=== PATIENT | female | born 1980 | race Hispanic/Latino ===

== ENCOUNTER 2018-07-22 22:15 | Emergency (ER) | payer SELFPAY ==
[2018-07-22 22:54] LABS: Absolute Lymphocytes (CBC) 1.1 K/uL (0.7-4.9); Absolute Monocytes 0.4 K/uL (0.1-1.3); Absolute Neutrophil 3.9 K/uL (1.8-8.0); Basophils % 0.5 % (0-1.3); Eosinophils % 1.3 % (0-4.4); Hematocrit 32.3 % (36.0-45.0); Lymphocytes % 19.8 % (15.3-44.8); MPV 8.2 fL (7.6-11.3); Monocytes % 7.1 % (3.3-12.3)
[2018-07-22 23:02] LABS: Protime INR 1.17
[2018-07-22 23:16] LABS: ALT/SGPT 27 U/L (12-78); AST/SGOT 30 U/L (15-37); Albumin 3.1 g/dL (3.4-5.0); Alkaline Phosphatase 92 U/L (45-117); BUN Blood Urea Nitrogen 7 mg/dL (7-18); Bicarbonate 27 mmol/L (21-32); Bilirubin Direct 0.1 mg/dL (0-0.2); Bilirubin Total 0.2 mg/dL (0.2-1.0); CKMB Creatine Kinase MB < 1.0 ng/mL (0.3-3.6); Creatine Phosphokinase 63 U/L (26-192); Glucose Level 221 mg/dL (74-106); Lipase 120 U/L (73-393); NT PRO-BNP 38 pg/mL (<125); Potassium 3.7 mmol/L (3.5-5.1); Protein, Total 9.3 g/dL (6.4-8.2); Sodium Level 137 mmol/L (136-145); Troponin (Emerg Dept Use Only) < 0.02 ng/mL (0.0-0.045)
[2018-07-23] MEDS ORDERED: IBUPROFEN 400 MG TAB ONE (00:05)
[2018-07-23] MEDS ORDERED: AZITHROMYCIN 500 MG INJ IVPB ONE (01:38)
[2018-07-23] MEDS ORDERED: NA CHLORIDE 0.9% 250 ML ONE (01:38)
[2018-07-23] MEDS ORDERED: CEFTRIAXONE/SWI 1gm 1 GM/10 ML SYR ONE (01:38)
--- NOTE | 2018-07-23 03:03 | EDPHYS ---
Physician Documentation [facility] Name: Sharlene Buchanan Age: 38 yrs Sex: Female : 1980 Arrival Date: 07/22/2018 Time: 22:18 Bed 26 Private MD: ED Physician Aj Staples HPI: 07/22 22:53 This 38 yrs old Female presents to ER via Ambulatory with complaints of Cough, tw4 Breathing Difficulty, Fever. 22:53 The patient or guardian reports airway noise, cough. Onset: The symptoms/episode tw4 began/occurred today. Severity of symptoms: At their worst the symptoms were moderate, in the emergency department the symptoms are unchanged. Modifying factors: The symptoms are alleviated by nothing, the symptoms are aggravated by nothing. The patient has not experienced similar symptoms in the past. 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 - Social history:: Smoking status: Patient/guardian denies using tobacco. - Ebola Screening: : Patient negative for fever greater than or equal to 101.5 degrees Fahrenheit, and additional compatible Ebola Virus Disease symptoms Patient denies exposure to infectious person Patient denies travel to an Ebola-affected area in the 21 days before illness onset. ROS: 22:53 Constitutional: Negative for fever, chills, and weight loss, Eyes: Negative for injury, tw4 pain, redness, and discharge, Cardiovascular: Negative for chest pain, palpitations, and edema, Abdomen/GI: Negative for abdominal pain, nausea, vomiting, diarrhea, and constipation, Back: Negative for injury and pain, MS/Extremity: Negative for injury and deformity, Skin: Negative for injury, rash, and discoloration. 22:53 Respiratory: Positive for cough, shortness of breath, wheezing, Negative for dyspnea on exertion, hemoptysis, orthopnea, pleurisy. Exam: 22:53 Constitutional: This is a well developed, well nourished patient who is awake, alert, tw4 and in no acute distress. Head/Face: Normocephalic, atraumatic. Chest/axilla: Normal chest wall appearance and motion. Nontender with no deformity. No lesions are appreciated. Cardiovascular: Regular rate and rhythm with a normal S1 and S2. No gallops, murmurs, or rubs. Normal PMI, no JVD. No pulse deficits. 22:53 Abdomen/GI: Soft, non-tender, with normal bowel sounds. No distension or tympany. No guarding or rebound. No evidence of tenderness throughout. Back: No spinal tenderness. No costovertebral tenderness. Full range of motion. 22:53 Respiratory: the patient does not display signs of respiratory distress, Respirations: normal, Breath sounds: rhonchi, are located in both bases. Vital Signs: 22:32 BP 184 / 110; Pulse 94; Resp 23; Temp 101.9; Pulse Ox 95% on R/A; Weight 90.72 kg; rv Height 5 ft. 3 in. (160.02 cm); Pain 0/10; 23:42 BP 161 / 99; Pulse 90; Resp 21; Pulse Ox 99% on 2 lpm NC; ca1 07/23 00:00 BP 157 / 101 RA; Pulse 90; Resp 17 S; Temp 99.8(O); Pulse Ox 99% on R/A; rv 01:00 BP 147 / 100 RA; Pulse 88; Resp 14 S; Pulse Ox 99% on 2 lpm NC; rv 03:30 BP 130 / 85; Pulse 80; Resp 18 S; Temp 97.9(O); Pulse Ox 95% on R/A; bb 07/22 22:32 Body Mass Index 35.43 (90.72 kg, 160.02 cm) rv MDM: 07/22 22:28 Patient medically screened. tw4 07/23 06:40 Differential Diagnosis: Obstructed Airway Bronchitis Influenza. Data reviewed: vital tw4 signs, nurses notes. Data interpreted: shelter monitor: rhythm is normal sinus rhythm, Pulse oximetry: Interpretation: normal. Test interpretation: by ED physician or midlevel provider: ECG, plain radiologic studies. Counseling: I had a detailed discussion with the patient and/or guardian regarding: the historical points, exam findings, and any diagnostic results supporting the discharge/admit diagnosis, lab results, radiology results. Medication response: albuterol nebulizer treatment(s) relieved the patient's symptoms. The patient is no longer wheezing. Response to treatment: There is no appreciated change of the patient's symptoms at this time. 07/22 22:38 Order name: Blood Culture Adult (2) tw07/22 22:38 Order name: BMP tw4 07/22 22:38 Order name: CBC with Diff; Complete Time: 01:19 tw07/22 22:38 Order name: Ckmb tw4 07/22 22:38 Order name: CPK 4 07/22 22:38 Order name: D-Dimer; Complete Time: 01:19 07/22 22:38 Order name: Hepatic Function 4 07/22 22:38 Order name: Lipase tw4 07/22 22:38 Order name: Magnesium 07/22 22:38 Order name: NT PRO-BNP 07/22 22:38 Order name: PT-INR 07/22 22:38 Order name: Ptt, Activated 07/22 22:38 Order name: Troponin (emerg Dept Use Only) 07/22 22:39 Order name: Blood Culture EDIA 07/22 22:38 Order name: XRAY CXR (1 view) 07/22 22:38 Order name: EKG; Complete Time: 22:40 07/22 22:38 Order name: Cardiac monitoring; Complete Time: 22:49 07/22 22:38 Order name: EKG - Nurse/Tech; Complete Time: 22:50 07/22 22:38 Order name: IV Saline Lock; Complete Time: 22:50 07/22 22:38 Order name: Labs collected and sent; Complete Time: 22:50 07/22 22:38 Order name: O2 Per Protocol; Complete Time: 22:50 07/22 22:38 Order name: O2 Sat Monitoring; Complete Time: 22:50 07/22 23:48 Order name: Flu tw4 EC/23 23:14 Rate is 90 beats/min. Rhythm is regular. QRS Emmet is Normal. UT interval is normal. No tw4 Q waves. T waves are Normal. No ST changes noted. Clinical impression: Normal ECG. Interpreted by me. Reviewed by me. Administered Medications: 23:56 Drug: Motrin 800 mg Route: PO; ca1 07/23 00:33 Follow up: Response: Temperature is decreased rv 01:25 Drug: Rocephin 1 grams Route: IV; Rate: calculated rate; Site: right hand; bb 01:30 Follow up: IV Status: Completed infusion; IV Intake: 10ml bb 01:35 Follow up: IV Status: Completed infusion; IV Intake: 10ml bb 01:42 Drug: Zithromax 500 mg Route: IVPB; Infused Over: 1 hrs; Site: right hand; bb 03:29 Follow up: IV Status: Completed infusion; IV Intake: 250ml bb Disposition: 07/23/18 03:02 Discharged to Home. Impression: Pneumonia in diseases classified elsewhere. - Condition is Stable. - Discharge Instructions: Community-Acquired Pneumonia, Adult. - Prescriptions for Zithromax 500 mg Oral Tablet - take 1 tablet by ORAL route once daily for 5 days; 5 tablet. - Medication Reconciliation Form, Thank You Letter, Antibiotic Education, Prescription Opioid Use form. - Follow up: Private Physician; When: Upon discharge from the Emergency Department; Reason: If symptoms return, Recheck today's complaints, Continuance of care. - Problem is new. - Symptoms have improved. Signatures: Dispatcher [employer] EDMerle Olvera RN RN bb Aj Staples MD MD tw4 Mickey Palma RN RN rv Darshan, Duyen RN RN ca1 Corrections: (The following items were deleted from the chart) 03:31 03:02 07/23/2018 03:02 Discharged to Home. Impression: Pneumonia in diseases classified bb elsewhere. Condition is Stable. Forms are Medication Reconciliation Form, Thank You Letter, Antibiotic Education, Prescription Opioid Use. Follow up: Private Physician; When: Upon discharge from the Emergency Department; Reason: If symptoms return, Recheck today's complaints, Continuance of care. Problem is new. Symptoms have improved. tw4
--- NOTE | 2018-07-23 03:03 | ER ---
Nurse's Notes [facility] Name: Sharlene Buchanan Age: 38 yrs Sex: Female : 1980 Arrival Date: 07/22/2018 Time: 22:18 Bed 26 Private MD: Diagnosis: Pneumonia in diseases classified elsewhere Presentation: 07/22 22:30 Presenting complaint: Patient states: FEVER STARTED TUESDAY. COUGH AND SOB STARTED rv YESTERDAY ANG GOT WORSE TODAY. NO CHEST PAIN. DOES NOT TAKE ANY MEDICINE BUT TOOK SON'S INHALER/ASTHMA MEDICINE. Transition of care: patient was not received from another setting of care. Onset of symptoms was July 21, 2018 at 08:00. Risk Assessment: Do you want to hurt yourself or someone else? Patient reports no desire to harm self or others. Initial Sepsis Screen: Does the patient meet any 2 criteria? No. Patient's initial sepsis screen is negative. Does the patient have a suspected source of infection? No. Patient's initial sepsis screen is negative. Care prior to arrival: None. 22:30 Method Of Arrival: Ambulatory rv 22:30 Acuity: BRITTNEY 3 rv Triage Assessment: 22:36 General: Appears in no apparent distress. uncomfortable, Behavior is calm, cooperative. rv Pain: Denies pain. EENT: No deficits noted. Neuro: Level of Consciousness is awake, alert, obeys commands, Oriented to person, place, time, situation. Cardiovascular: Capillary refill < 3 seconds. Respiratory: Reports shortness of breath at rest cough that is persistent Onset: The symptoms/episode began/occurred yesterday, Denies. Respiratory: the patient has moderate shortness of breath. GI: Abdomen is round. : No signs and/or symptoms were reported regarding the genitourinary system. Derm: Skin is intact. Musculoskeletal: No signs and/or symptoms reported regarding the musculoskeletal system. 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 - Social history:: Smoking status: Patient/guardian denies using tobacco. - Ebola Screening: : Patient negative for fever greater than or equal to 101.5 degrees Fahrenheit, and additional compatible Ebola Virus Disease symptoms Patient denies exposure to infectious person Patient denies travel to an Ebola-affected area in the 21 days before illness onset. Screenin:38 Abuse screen: Denies threats or abuse. Denies injuries from another. Nutritional rv screening: No deficits noted. Tuberculosis screening: No symptoms or risk factors identified. Fall Risk None identified. Assessment: 22:39 Cardiovascular: Rhythm is regular. Respiratory: Airway is patent Respiratory effort is rv labored, Breath sounds with crackles in right posterior upper lobe, right posterior middle lobe and right posterior lower lobe. 07/23 00:18 Reassessment: Patient appears in no apparent distress at this time. Patient and/or rv family updated on plan of care and expected duration. Pain level reassessed. Patient is alert, oriented x 3, equal unlabored respirations, skin warm/dry/pink. Patient denies pain at this time. 01:16 Reassessment: Patient appears in no apparent distress at this time. Patient and/or rv family updated on plan of care and expected duration. Pain level reassessed. Patient is alert, oriented x 3, equal unlabored respirations, skin warm/dry/pink. 01:42 Reassessment: Patient is alert, oriented x 3, equal unlabored respirations, skin bb warm/dry/pink. IV site intact, patent, antibiotics administered pt notified of plan of care will be discharged on completion of IV antibiotics, pt verbalized understanding of and agrees to plan of care, family at bedside. 03:28 Reassessment: Patient and/or family updated on plan of care and expected duration. Pain bb level reassessed. pt verbalized understanding of and agrees to plan of care discharge instructions given pt ambulated with steady gait to exit accompanied by family. Vital Signs: 07/22 22:32 BP 184 / 110; Pulse 94; Resp 23; Temp 101.9; Pulse Ox 95% on R/A; Weight 90.72 kg; rv Height 5 ft. 3 in. (160.02 cm); Pain 0/10; 23:42 BP 161 / 99; Pulse 90; Resp 21; Pulse Ox 99% on 2 lpm NC; ca1 07/23 00:00 BP 157 / 101 RA; Pulse 90; Resp 17 S; Temp 99.8(O); Pulse Ox 99% on R/A; rv 01:00 BP 147 / 100 RA; Pulse 88; Resp 14 S; Pulse Ox 99% on 2 lpm NC; rv 03:30 BP 130 / 85; Pulse 80; Resp 18 S; Temp 97.9(O); Pulse Ox 95% on R/A; bb 07/22 22:32 Body Mass Index 35.43 (90.72 kg, 160.02 cm) rv ED Course: 07/22 22:18 Patient arrived in ED. mr 22:28 Aj Staples MD is Attending Physician. tw4 22:32 Triage completed. rv 22:39 Patient has correct armband on for positive identification. Placed in gown. Bed in low rv position. Call light in reach. Side rails up X 1. monitor and storage bin tender on. Pulse ox on. NIBP on. 22:39 Patient placed in an exam room, on a stretcher, on oxygen, on satellite project site monitor, on pulse rv oximetry, Patient notified of wait time. 22:40 Missed attempt(s): 20 gauge in right antecubital area. ca1 22:43 Inserted saline lock: 22 gauge in right hand, using aseptic technique. Blood collected. ca1 22:43 First set of blood cultures drawn by me. ca1 22:49 XRAY CXR (1 view) Sent. rv 22:50 Blood Culture Adult (2) Sent. rv 23:01 XRAY CXR (1 view) In Process Unspecified. EDMS 23:18 Notified ED physician of a critical lab result(s). D-Dimer of 748. Dr Staples notified. bb 07/23 01:17 Report given to [place]. rv 01:43 No provider procedures requiring assistance completed. bb 03:25 IV discontinued, intact, bleeding controlled, No redness/swelling at site. Pressure bb dressing applied. Administered Medications: 07/22 23:56 Drug: Motrin 800 mg Route: PO; ca1 07/23 00:33 Follow up: Response: Temperature is decreased rv 01:25 Drug: Rocephin 1 grams Route: IV; Rate: calculated rate; Site: right hand; bb 01:30 Follow up: IV Status: Completed infusion; IV Intake: 10ml bb 01:35 Follow up: IV Status: Completed infusion; IV Intake: 10ml bb 01:42 Drug: Zithromax 500 mg Route: IVPB; Infused Over: 1 hrs; Site: right hand; bb 03:29 Follow up: IV Status: Completed infusion; IV Intake: 250ml bb Intake: 01:30 IV: 10ml; Total: 10ml. bb 01:35 IV: 10ml; Total: 20ml. bb 03:29 IV: 250ml; Total: 270ml. bb Outcome: 03:02 Discharge ordered by MD. conteh 03:31 Discharged to home ambulatory, with family. bb 03:31 Condition: stable 03:31 Discharge instructions given to patient, Instructed on discharge instructions, follow up and referral plans. medication usage, Demonstrated understanding of instructions, follow-up care, medications, Prescriptions given X 1. 03:31 Patient left the ED. bb Signatures: Dispatcher [employer] Jess Lester Brenda, RN RN Aj Slater MD MD tw4 Mickey Palma RN RN rv Duyen Sexton RN RN ca1
--- NOTE | 2018-07-23 10:52 | RAD REPORT ---
EXAM DESCRIPTION: RAD - Chest Single View - 07/23/2018 8:19 am CLINICAL HISTORY: DYSPNEA Chest pain. COMPARISON: No comparisons FINDINGS: Portable technique limits examination quality. Bilateral pulmonary opacities are present, greater on the right, likely representing pneumonia or asy mmetric pulmonary edema. The heart is normal in size. No displaced fractures.
== END 2018-07-23 03:31 | disposition home or self-care (01) ==
LOC: ER 22:15
DX: J18.9 Pneumonia, unspecified organism (principal)
CPT/HCPCS: 36415; 71045; 80048; 80076; 82550; 82553; 83690; 83735; 83880; 84484; 85025; 85379; 85610; 85730; 87040; 87804; 96365; 96366; 96375; 99285; J0456; J0696

== ENCOUNTER 2022-05-05 14:02 | Emergency (ER) | payer SELFPAY ==
--- OUTSIDE RECORDS SUMMARY | 2022-05-05 14:12 | XMS REPORT | Continuity of Care Document ---
:1980 Author Organization [facility] t Address [address] [place] [address] Care Team Providers Name Role Phone Pcp, Patient Does Not Have A Primary Care Physician +[id number] Doctor Unassigned, Bernice Attending Clinician Unavailable JACKEI DYE Attending Clinician Unavailable Rashi Rogel DO Attending Clinician Jackie Dye MD Attending Clinician MARIBEL NUÑEZ Attending Clinician Unavailable Maribel Guerrero Attending Clinician Cecilia FOUNTAIN, Roselyn Menjivar Attending Clinician Unavailable ROBERT DAILY Attending Clinician Unavailable April Mendiola Attending Clinician Yohannes Denton DO Attending Clinician Verona Taylor MD Attending Clinician [facility] Attending Clinician Unavailable Melly Richards Attending Clinician MELLY FATIMA Attending Clinician Unavailable JACKIE DYE Admitting Clinician Unavailable Jackie Dye MD Admitting Clinician Yohannes Denton DO Admitting Clinician Problems Condition Condition Condition Status Onset Resolution Last Treating Co mments Source Name Details Category Date Date Treatment Clinician Date Right Right Disease Active Univers flank pain flank pain 12-02 it y of 00:00: [address] Pyelonephr Pyelonephr Disease Active U nivers itis itis 8 ity of 00:00: [address] Breast Breast Disease Active Univers abscess abscess 07-30 ity of 00:00: [address] Morbid Morbid Disease Active Univers obesity obesity 3-31 ity of [place] body [place] mass index mass index 00 Me dical of 50 or of 50 or Branch higher higher No known No known Disease Unive rs active active ity of problems problems [facility] Allergies, Adverse Reactions, Alerts Allergy Allergy Status Severity Reaction(s) Onset Inactive Treating Comm ents Source Name Type Date Date Clinician NO KNOWN Drug Active Univers DRUG Class 2-12 ity of ALLERGIE 00:00: [place] [address] [place] [address] No Known Propensi Active Univer s Drug ty to 2-12 ity of Allergie adverse 00:00: [place] reaction [address] [place] [address] Social History Social Habit Start Date Stop Date Quantity Comments Source Exposure to 2021-11-21 2021-12-01 Not sure [facility] SARS-CoV-2 00:00:00 14:24:00 [facility] (event) [place] Tobacco use and 2020-07-30 2020-07-30 Smokeless tobacco Un iversity of exposure 00:00:00 00:00:00 non-user [facility] Education 2020-07-30 2020-07-30 13 University of 00:00:00 00:00:00 [facility] Sex [birth year] Universit y of 00:00:00 00:00:00 [facility] Smoking Status Start Date Stop Date Source Never smoked [facility] Medications Ordered Filled Start Stop Current Ordering Indication Dosage Frequency Signature Comments Components Source Medication Medication Date Date Medication? Clinician (SIG) Name Name morpHINE (2 Yes 2mg 2 mg, Slow Univers mg/mL) 12-04 IV Push, ity of injection 2 02:04: Q4HPRN, [place] mg 03 Starting Medical on [place] Branch 12/03/21 at 2104, Until Discontinu ed, Routine, Pain (scale 7-10) insulin NPH Yes [id number] 25U inject 25 Univers and regular 8-05 Units ity of human 70-30 00:00: under the [place] 100 unit/mL 00 skin 2 Medica l (70-30) (two) Branch injection times daily before breakfast and dinner. insulin NPH Yes [id number] 25U inject 25 Univers and regular 8-05 Units ity of human 70-30 00:00: under the [place] 100 unit/mL 00 skin 2 Medica l (70-30) (two) Branch injection times daily before breakfast and dinner. atorvastati 2021- No [id number] 40mg Take 1 Univers n 40 mg 12-04 tablet by ity of tablet 00:00: 04:59 mouth at [place] 00 :00 bedtime Medical for 30 Branch days. amoxicillin 2021- No [id number] 500mg Take 1 Univers 500 mg 12-04 tablet by ity of tablet 00:00: 04:59 mouth in [place] 00 :00 the Medical morning Branch and 1 tablet at noon and 1 tablet in the evening. Do all this for 7 days. metroNIDAZO 2021- No [id number] 500mg Take 1 Univers LE 500 mg 12-04 0810 tablet by ity of tablet 00:00: 04:59 mouth [place] 00 :00 every 12 Medical (twelve) Branch hours for 4 days. insulin NPH Yes 25U 25 Units, U nivers and regular 8-04 Subcutaneo it y of human 70-30 12:30: us, BIDAC, [place] (70-30 00 First dose Medical U-100 (after Branch INSULIN) last 100 unit/mL modificati (70-30) on) on [place] injection 12/03/21 at 25 Units 0730, Until Discontinu ed, Routine ampicillin Yes 2g 2,000 mg Uni vers (POLYCILLIN 12-02 (2 g), IV ity of -N) 2,000 22:00: [place]back, [place] mg in NaCl 00 Q6H ABX, Medic al 0.9% (NS) First dose Bran ch 100 mL on Tue MINI-BAG 12/02/21 at 1700, Until Discontinu ed, Administer over 30 Minutes, 100 mL
Reas on for Anti-Infec tive: Documented Infection< br>Documen shadia Infection Site: Urine
D uration of Therapy: 7 days atorvastati Yes 40mg 40 mg, Univ ers n (LIPITOR) 12-02 Oral, QHS, it y of tablet 40 02:00: First dose [place] mg 00 on Tue Medical 12/01/21 at Branch 2100, Until Discontinu ed, Routine metroNIDAZO 2021- No 500mg 500 mg, U sara LE (FLAGYL) 12-02 08-10 Oral, ity of tablet 500 01:00: 00:59 Q12H, 14 [place] mg 00 :00 doses, Medical First dose Branch on Tue12/01/21 at 2000, Last dose on Tue12/08/21 at 0800, Routine
Reason for Anti-Infec tive: Documented Infection< br>Documen shadia Infection Site: Urine
D uration of Therapy: 7 days Sliding Yes Subcutaneo Univ ers Scale 12-01 us, TID ity of Insulin - 22:00: MEALS+HS, [place] Lispro 00 First dose Medical (HumaLOG) + on Tue Branch Fsbg 12/01/21 at Testing 1700, Until Discontinu ed, Routine enoxaparin Yes 40mg 40 mg, Unive rs (LOVENOX) 12-01 Subcutaneo ity of injection 22:00: us, DAILY, [place] 40 mg 00 First dose Medical on Tue Branch 12/01/21 at 1700, Until Discontinu ed, Routine insulin NPH 2021- No 20U 20 Units, Univers and regular 12-01 08-04 Subcutaneo i ty of human 7030 21:30: 04:37 us, BIDAC, [place] (30 00 :37 First dose Medical U-100 on INSULIN) 12/01/21 at 100 unit/mL 1630, (70-30) Until injection Discontinu 20 Units ed, Routine NaCl 0.9% 2021-0 Yes 1000mL at 125 Univ ers (NS) IV 802 mL/hr, IV ity of infusion 17:30: Infusion, [place] 1,000 mL 00 CONTINUOUS Medic al , Starting Branch on Tue12/01/21 at 1230, Until Discontinu ed, Routine glucagon 2021-0 Yes 1mg 1 mg, Univers (GLUCAGEN 12-01 Intramuscu ity of DIAGNOSTIC 17:12: lar, PRN, [place] KIT) 10 Starting Medical injection 1 on [facility] mg 12/01/21 at 1212, Until Discontinu ed, ALDO, Blood Glucose < or = 70 mg/dL and patient is unable to swallow or has mental changes. dextrose 50 2021-0 Yes 25mL 25 mL, Univ ers % in water 12-01 Slow IV ity of (D50W) 17:12: Push, PRN, [place] injection 10 Starting Medica l 25 mL on [facility] 12/01/21 at 1212, Until Discontinu ed, ALDO, Blood Glucose < or = 70 mg/dL and patient is unable to swallow or has mental status changes. ondansetron 0 Yes 4mg 4 mg, Slow Univers (ZOFRAN 12-01 IV Push, ity of (PF)) 17:12: Q6HPRNSunflower, [place] injection 4 00 Starting Medi abdi mg on [facility] 12/01/21 at 1212, Until Discontinu ed, Routine, Nausea and Vomiting (N/V) acetaminoph 2021-0 Yes 650mg 650 mg, Un mandi en 12-01 Oral, ity of (TYLENOL) 17:11: Q6HPTupman, [place] tablet 650 48 Starting Medic al mg on [facility] 12/01/21 at 1211, Until Discontinu ed, Routine, Pain (scale 1-3), Temp > 38.5 C ketorolac 2022-0 2022- No 15mg 15 mg, Unive rs (TORADOL) 12-01 Slow IV ity of injection 17:00: 04:26 Push, Q6H, [place] 15 mg 00 :00 4 doses, Medical First dose Branch on Tue12/01/21 at 1200, Last dose on Tue12/02/21 at 0600, Routine cefTRIAXone 2021- No 1000mg 1,000 mg, Univers (ROCEPHIN) 12-01 Slow IV ity o f injection 14:45: 20:56 Push, Q24H [place] 1,000 mg 00 :24 ABX, First Medic al dose on Branch Tue12/01/21 at 0945, Until Discontinu ed, ALDO<br&gt ;Reason for Anti-Infec tive: Empiric Therapy for Suspected Infection< br>Empiric Therapy Site: Pelvic
Duration of therapy: 72 hours NaCl 0.9% 2021- No 1000mL at 999 Uni vers (NS) bolus 12-01 mL/hr, ity of infusion 13:15: 16:26 1,000 mL, [place] 1,000 mL 00 :00 IV Medical Piggyback, Branch ONCE, 1 dose, On Tue12/01/21 at 0815, STAT ondansetron 2021- No 4mg 4 mg, Slow Univers (ZOFRAN 12-01 IV Push, ity of (PF)) 12:15: 12:39 ONCE, 1 [place] injection 4 00 :00 dose, On Medi abdi mg Tue12/01/21 Branch at 0715, Routine valACYclovi Yes [id number] 1g Take 1 Univers r 1 gram 3-22 tablet by ity of tablet 00:00: mouth 3 [place] 00 (three) Medical times Branch daily. valACYclovi 2021-0 Yes [id number] 1g Take 1 Univers r 1 gram 3-22 tablet by ity of tablet 00:00: mouth 3 [place] 00 (three) Medical times Branch daily. valACYclovi 2021-0 Yes [id number] 1g Take 1 Univers r 1 gram 3-22 tablet by ity of tablet 00:00: mouth 3 [place] 00 (three) Medical times Branch daily. predniSONE 2021-2021- No [id number] 60mg Take 3 Univers 20 mg 07-21 03-30 tablets by ity of tablet 00:00: 04:59 mouth [place] 00 :00 every Medical morning Branch for 7 days. glipiZIDE Yes 2.5mg 2.5 mg, Univ ers (GLUCOTROL) 4-05 Oral, ity of tablet 2.5 14:00: DAILY, [place] mg 00 First dose Medical on Mon Branch 08/04/20 at 0900, Until Discontinu ed, Routine glipiZIDE 5 2020- No [id number] 2.5mg Take 0.5 Univers mg tablet 08-04 05-06 tablets by ity of 00:00: 04:59 mouth [place] 00 :00 daily for Medical 30 days. Branch metFORMIN Yes 1000mg 1,000 mg, U nivers (GLUCOPHAGE -04 Oral, BID ity of ) tablet 13:00: MEALS, [place] 1,000 mg 00 First dose Medic al (after Branch last modificati on) on 08/03/20 at 0800, Until Discontinu ed, Routine metFORMIN 2020- No [id number] 1000mg Take 1 Univers 1,000 mg 08-03-05 tablet by ity o f tablet 00:00: 04:59 mouth 2 [place] 00 :00 (two) Medical times [place] daily with meals for 30 days. ciprofloxac 2020- No [id number] 500mg Take 1 Univers in HCl 500 08-03-12 tablet by ity of mg tablet 00:00: 04:59 mouth [place] 00 :00 every 12 Medical (twelve) Branch hours for 7 days. ciprofloxac Yes 400mg 400 mg, IV Univers in in 5 % -03 Piggyback, ity of dextrose 14:00: Administer [place] (CIPRO) 00 over 60 Medical piggyback Minutes, Branch 400 mg Q12H ABX, First dose on 08/02/20 at 0900, Until Discontinu ed, ALDO
Re ason for Anti-Infec tive: Documented Infection< br>Documen shadia Infection Site: Skin / Soft Tissue
Duration of Therapy: 7 days Sliding Yes Subcutaneo [facility] ers Scale 4-02 us, TID ity of Insulin - 22:00: MEALS+HS, [place] Lispro 00 First dose Medical (HumaLOG) + on Tue Branch Fsbg 08/01/20 at Testing 1700, Until Discontinu ed, Routine glucagon 2020- Yes 1mg 1 mg, Univers (GLUCAGEN 08-01 Intramuscu ity of DIAGNOSTIC 21:02: lar, PRN, [place] KIT) 13 Starting Medical injection 1 08/01/20 Br anch mg at 1602, Until Discontinu ed, ALDO, Blood Glucose < or = 70 mg/dL and patient is unable to swallow or has mental changes. dextrose 50 2020-0 Yes 25mL 25 mL, Univ ers % in water 08-01 Slow IV ity of (D50W) 21:02: Push, PRN, [place] injection 13 Starting Medica l 25 mL 08/01/20 Branch at 1602, Until Discontinu ed, ALDO, Blood Glucose < or = 70 mg/dL and patient is unable to swallow or has mental status changes. morpHINE 2020- No 2mg 2 mg, Slow Un mandi injection 2 08-01 IV Push, ity of mg 17:00: 16:29 ONCE, 1 [place] 00 :00 dose, [facility] [place] Medical 08/01/20 at Branch 1200, Routine morpHINE 2020- No 2mg 2 mg, Slow Un mandi injection 2 08-01- IV Push, ity of mg 17:00: 16:29 ONCE, 1 [place] 00 :00 dose, [facility] [place] Medical 08/01/20 at Branch 1200, Routine metFORMIN 2020- Yes 500mg 500 mg, Univ ers (GLUCOPHAGE 07-31 Oral, BID ity of ) tablet 22:00: MEALS, [place] 500 mg 00 First dose Medical on Tue Branch 07/31/20 at 1700, Until Discontinu ed, Routine metFORMIN 2020-0 2020- No 500mg 500 mg, Uni vers (GLUCOPHAGE 07-31-03 Oral, BID it y of ) tablet 22:00: 22:03 MEALS, [place] 500 mg 00 :02 First dose Medical on [place] Branch 07/31/20 at 1700, Until Discontinu ed, Routine acetaminoph 2020- Yes 500mg 500 mg, Un mandi en 07-31 Oral, Q6H ity of (TYLENOL) 21:00: ABX, First [place] tablet 500 00 dose Medical mg (after Branch last modificati on) on [facility] 07/31/20 at 1600, Until Discontinu ed, Routine acetaminoph 2020-0 Yes 500mg 500 mg, Un mandi en 07-31 Oral, Q6H ity of (TYLENOL) 21:00: ABX, First [place] tablet 500 00 dose Medical mg (after Branch last modificati on) on [facility] 07/31/20 at 1600, Until Discontinu ed, Routine ibuprofen 2020-0 Yes 600mg 600 mg, Univ ers (IBU) 07-31 Oral, Q6H ity of tablet 600 20:00: ABX, First [place] mg 00 dose on [facility] 07/31/20 Branch at 1500, Until Discontinu ed, Routine ibuprofen 2020- Yes 600mg 600 mg, Univ ers (IBU) 07-31 Oral, Q6H ity of tablet 600 20:00: ABX, First [place] mg 00 dose on [facility] 07/31/20 Branch at 1500, Until Discontinu ed, Routine piperacilli 0 Yes 3.375g 3.375 g, Univers n-tazobacta 07-31 IV ity of m (ZOSYN) 19:15: Piggyback, [place] 3.375 g in 00 Q6H ABX, Medic al NaCl 0.9% First dose Bran ch (NS) 100 mL on [facility] MINI-BAG 07/31/20 at 1415, Until Discontinu ed, 100 mL
R melinda for Anti-Infec tive: Documented Infection< br>Documen shadia Infection Site: Skin / Soft Tissue
Duration of Therapy: 7 days piperacilli 2020-0 202- No 3.375g 3.375 g, Univers n-tazobacta 07-31 04-03 IV ity of m (ZOSYN) 19:15: 13:21 [place]gyback, [place] 3.375 g in 00 :09 Q6H ABX, Medic al NaCl 0.9% First dose Bran ch (NS) 100 mL on [facility] MINI-BAG 07/31/20 at 1415, Until Discontinu ed, 100 mL
R melinda for Anti-Infec tive: Documented Infection< br>Reg reno Infection Site: Skin / Soft Tissue
Duration of Therapy: 7 days HYDROcodone Yes 1{tbl} 1 tablet, Univers -acetaminop 4-01 Oral, ity of hen (NORCO 18:15: Q4HPRN, [place] 5) 5-325 mg 21 Starting Medi abdi tablet 1 [place] 07/31/20 Branc h tablet at 1315, Until Discontinu ed, Routine, Pain (scale 7-10) HYDROcodone Yes 1{tbl} 1 tablet, Univers -acetaminop 4-01 Oral, ity of hen (NORCO 18:15: Q4HPRN, [place] 5) 5-325 mg 21 Starting Medi abdi tablet 1 [place] 07/31/20 Branc h tablet at 1315, Until Discontinu ed, Routine, Pain (scale 7-10) lactated 2020- No 1000mL at 75 Unive rs ringers IV 07-31 04-01 mL/hr, ity of infusion 18:15: 21:45 1,000 mL, [place] 1,000 mL 00 :26 IV Medical Infusion, Branch CONTINUOUS , Starting Sh[place]an 07/31/20 at 1315, Until [place]an 07/31/20 at 1645, Routine, PACU lactated 2020- No 1000mL at 75 Unive rs ringers IV 07-31 04-01 mL/hr, ity of infusion 18:15: 21:45 1,000 mL, [place] 1,000 mL 00 :26 IV Medical Infusion, Branch CONTINUOUS , Starting [place]an 07/31/20 at 1315, Until [place] 07/31/20 at 1645, Routine, PACU ondansetron 2020- No 4mg 4 mg, Slow Univers (ZOFRAN 07-31 IV Push, ity of (PF)) 18:01: 18:31 PRN, 1 [place] injection 4 06 :00 dose, Medical mg Starting Branch Shannan 07/31/20 at 1301, Until [place]an 07/31/20 at 1331, Routine, Nausea and Vomiting (N/V), PACU ondansetron 2021-0 2021- No 4mg 4 mg, Slow Univers (ZOFRAN 07-31 IV Push, ity of (PF)) 18:01: 18:31 PRN, 1 [place] injection 4 06 :00 dose, Medical mg Starting Branch [facility] 07/31/20 at 1301, Until Sh[place]an 07/31/20 at 1331, Routine, Nausea and Vomiting (N/V), PACU povidone-io 2020- No PRN, Unive rs dine 07-31 Starting ity of (BETADINE) 17:36: 19:46 [facility] 07/31/20 [place] 10 % 00 :50 at 1236, Medical solution Until [facility] Branch 07/31/20 at 1446, Routine, Intra-op sodium 2020- No PRN, Univers chloride 07-31 Starting ity of 0.9 % 17:23: 19:46 [facility] 07/31/20 [place] irrigation 00 :50 at 1223, Medic al solution Until [facility] Branch 07/31/20 at 1446, Intra-op docusate Yes 100mg 100 mg, Unive rs (COLACE) 07-31 Oral, ity of capsule 100 14:00: DAILY, [place] mg 00 First dose Medical on [facility] Branch 07/31/20 at 0900, Until Discontinu ed, Routine docusate Yes 100mg 100 mg, Unive rs (COLACE) 07-31 Oral, ity of capsule 100 14:00: DAILY, [place] mg 00 First dose Medical on [facility] Branch 07/31/20 at 0900, Until Discontinu ed, Routine Sliding Yes Subcutaneo Univ ers Scale 07-31 us, TID ity of Insulin - 13:00: MEALS+HS, [place] Lispro 00 First dose Medical (HumaLOG) + on [place] Branch Fsbg 07/31/20 at Testing 0800, Until Discontinu ed, Routine Sliding 2020- No Subcutaneo Uni vers Scale 07-31 , TID ity of Insulin - 13:00: 21:02 MEALS+HS, [place] Lispro 00 :04 First dose Medical (HumaLOG) + on [place] Branch Fsbg 07/31/20 at Testing 0800, Until Discontinu ed, Routine ampicillin- 2020- No 3g 3 g, IV Un mandi sulbactam 07-30 Piggyback, ity of (UNASYN) 3 23:00: 18:15 Q6H ABX, [place] g in NaCl 00 :56 First dose Medi abdi 0.9% (NS) on Wed Branch 100 mL 07/30/20 at MINI-BAG 1800, Until Discontinu ed, 100 mL
Reas on for Anti-Infec tive: Empiric Therapy for Suspected Infection< br>Empiric Therapy Site: Skin / Soft tissue
Duration of therapy: 7 days ampicillin- 2020- No 3g 3 g, IV Un mandi sulbactam 07-30 Piggyback, ity of (UNASYN) 3 23:00: 18:15 Q6H ABX, [place] g in NaCl 00 :56 First dose Medi abdi 0.9% (NS) on Tue Branch 100 mL 07/30/20 at MINI-BAG 1800, Until Discontinu ed, 100 mL
Reas on for Anti-Infec tive: Empiric Therapy for Suspected Infection< br>Empiric Therapy Site: Skin / Soft tissue
Duration of therapy: 7 days vancomycin No 15mg/kg 1,500 mg Univers 1500 mg in 07-30 (rounded ity of NS 500 mL 22:45: 18:15 from 2,280 [place] IV 00 :56 mg = 15 Medical Piggyback mg/kg ?152 Bran RTU 1,500 kg), IV mg Piggyback, Q8H ABX, First dose (after last modificati on) on Tue07/30/20 at 1745, Until Discontinu ed
Reas on for Anti-Infec tive: Empiric Therapy for Suspected Infection< br>Empiric Therapy Site: Skin / Soft tissue
Duration of therapy: 7 days vancomycin No 15mg/kg 1,500 mg Univers 1500 mg in 07-30 (rounded ity of NS 500 mL 22:45: 18:15 from 2,280 [place] IV 00 :56 mg = 15 Medical Piggyback mg/kg ?152 [place] RTU 1,500 kg), IV mg Piggyback, Q8H ABX, First dose (after last modificati on) on Tue07/30/20 at 1745, Until Discontinu ed
Reas on for Anti-Infec tive: Empiric Therapy for Suspected Infection< br>Empiric Therapy Site: Skin / Soft tissue
Duration of therapy: 7 days enoxaparin 2020-0 Yes 40mg 40 mg, Unive rs (LOVENOX) 07-30 Subcutaneo ity of injection 22:00: us, DAILY, [place] 40 mg 00 First dose Medical on Tue07/30/20 at 1700, Until Discontinu ed, Routine enoxaparin 2020-0 Yes 40mg 40 mg, Unive rs (LOVENOX) 07-30 Subcutaneo ity of injection 22:00: us, DAILY, [place] 40 mg 00 First dose Medical on Tue07/30/20 at 1700, Until Discontinu ed, Routine lactated 2020-2020- No 1000mL at 50 Unive rs ringers IV 07-30 04-01 mL/hr, ity of infusion 22:00: 18:15 1,000 mL, [place] 1,000 mL 00 :56 IV Medical Infusion, Branch CONTINUOUS , Starting Tue07/30/20 at 1700, Until Shannan 07/31/20 at 1315, Routine lactated 2020-0 2020- No 1000mL at 50 Unive rs ringers IV 07-30 04-01 mL/hr, ity of infusion 22:00: 18:15 1,000 mL, [place] 1,000 mL 00 :56 IV Medical Infusion, Branch CONTINUOUS , Starting Tue07/30/20 at 1700, Until Shannan 07/31/20 at 1315, Routine ondansetron 2020-0 Yes 4mg 4 mg, Slow Univers (ZOFRAN 3-31 IV Push, ity of (PF)) 21:52: Q6HPRN, [place] injection 4 49 Starting Medi abdi mg Tue07/30/20 at 1652, Until Discontinu ed, Routine, Nausea and Vomiting (N/V) ondansetron 2020-0 Yes 4mg 4 mg, Slow Univers (ZOFRAN 3-31 IV Push, ity of (PF)) 21:52: Q6HPRN, [place] injection 4 49 Starting Medi abdi mg Wed Branch 07/30/20 at 1652, Until Discontinu ed, Routine, Nausea and Vomiting (N/V) morpHINE 2020- No 4mg 4 mg, Slow Un mandi injection 4 07-30 IV Push, ity of mg 21:52: 18:15 Q3HPRN, [place] 40 :57 Starting Medical Wed Branch 07/30/20 at 1652, Until Shannan 07/31/20 at 1315, Routine, Pain (scale 7-10) morpHINE 2020- No 4mg 4 mg, Slow Un mandi injection 4 07-30 IV Push, ity of mg 21:52: 18:15 Q3HPRN, [place] 40 :57 Starting Medical Wed Branch 07/30/20 at 1652, Until Shannan 07/31/20 at 1315, Routine, Pain (scale 7-10) acetaminoph 2020- No 1{tbl} 1 tablet, Univers en-codeine 07-30 Oral, ity of (TYLENOL 21:52: 18:15 Q6HPRN, [place] #3) 300-30 34 :56 Starting Medic al mg tablet 1 Wed Branch tablet 07/30/20 at 1652, Until Shannan 07/31/20 at 1315, Routine, Pain (scale 4-6) acetaminoph 2020- No 1{tbl} 1 tablet, Univers en-codeine 07-30 Oral, ity of (TYLENOL 21:52: 18:15 Q6HPRN, [place] #3) 300-30 34 :56 Starting Medic al mg tablet 1 Wed Branch tablet 07/30/20 at 1652, Until Sh[place]an 07/31/20 at 1315, Routine, Pain (scale 4-6) piperacilli 2020- No 3.375g 3.375 g, Univers n-tazobacta 07-30 IV ity of m (ZOSYN) 20:30: 20:10 Piggyback, [place] 3.375 g in 00 :00 ONCE, 1 Medica l NaCl 0.9% dose, [facility] h (NS) 100 mL 07/30/20 at MINI-BAG 1530, 100 mL
Reas on for Anti-Infec tive: Documented Infection< br>Documen shadia Infection Site: Skin / Soft Tissue
Duration of Therapy: 7 days piperacilli 2020- No 3.375g 3.375 g, Univers n-tazobacta 07-30 IV ity of m (ZOSYN) 20:30: 20:10 Piggyback, [place] 3.375 g in 00 :00 ONCE, 1 Medica l NaCl 0.9% dose, Wed Branc h (NS) 100 mL 07/30/20 at MINI-BAG 1530, 100 mL
Reas on for Anti-Infec tive: Documented Infection< br>Documen shadia Infection Site: Skin / Soft Tissue
Duration of Therapy: 7 days HYDROcodone 2020- No 1{tbl} 1 tablet, Univers -acetaminop 07-30 Oral, ity of hen (NORCO) 19:45: 18:52 ONCE, 1 [place] 10-325 mg 00 :00 dose, Wed Medic al tablet 1 07/30/20 at Branc h tablet 1445, Routine HYDROcodone 2020- No 1{tbl} 1 tablet, Univers -acetaminop 07-30 Oral, ity of hen (NORCO) 19:45: 18:52 ONCE, 1 [place] 10-325 mg 00 :00 dose, Wed Medic al tablet 1 07/30/20 at Branc h tablet 1445, Routine Yes Take one Unive rs VIT-IRON 2-15 tablet by ity of FUMARATE-FA 00:00: mouth [place] 60-1 MG 00 daily Medical ORAL TAB Branch DOCUSATE Yes Take one Unive rs CALCIUM 240 2-15 capsule by it y of MG ORAL CAP 00:00: mouth [place] 00 daily as Medical needed for Branch constipati on FERROUS Yes Take one Univer s SULFATE 300 2-15 tablet by ity of (60) MG 00:00: mouth [place] ORAL TAB 00 twice Medical daily Branch IBUPROFEN Yes Take one Univ ers 600 MG ORAL 2-15 tablet by ity of TAB 00:00: mouth [place] 00 every six Medical hours as Branch needed for pain Yes Take one Unive rs VIT-IRON 2-15 tablet by ity of FUMARATE-FA 00:00: mouth [place] 60-1 MG 00 daily Medical ORAL TAB Branch DOCUSATE Yes Take one Unive rs CALCIUM 240 2-15 capsule by it y of MG ORAL CAP 00:00: mouth [place] 00 daily as Medical needed for Branch constipati on FERROUS Yes Take one Univer s SULFATE 300 2-15 tablet by ity of (60) MG 00:00: mouth [place] ORAL TAB 00 twice Medical daily Branch IBUPROFEN Yes Take one Univ ers 600 MG ORAL 2-15 tablet by ity of TAB 00:00: mouth [place] 00 every six Medical hours as Branch needed for pain Yes Take one Unive rs VIT-IRON 2-15 tablet by ity of FUMARATE-FA 00:00: mouth [place] 60-1 MG 00 daily Medical ORAL TAB Branch DOCUSATE Yes Take one Unive rs CALCIUM 240 2-15 capsule by it y of MG ORAL CAP 00:00: mouth [place] 00 daily as Medical needed for Branch constipati on FERROUS Yes Take one Univer s SULFATE 300 2-15 tablet by ity of (60) MG 00:00: mouth [place] ORAL TAB 00 twice Medical daily Branch IBUPROFEN 2005- Yes Take one Univ ers 600 MG ORAL 2-15 tablet by ity of TAB 00:00: mouth [place] 00 every six Medical hours as Branch needed for pain Yes Take one Unive rs VIT-IRON 2-15 tablet by ity of FUMARATE-FA 00:00: mouth [place] 60-1 MG 00 daily Medical ORAL TAB Branch DOCUSATE Yes Take one Unive rs CALCIUM 240 2-15 capsule by it y of MG ORAL CAP 00:00: mouth [place] 00 daily as Medical needed for Branch constipati on FERROUS Yes Take one Univer s SULFATE 300 2-15 tablet by ity of (60) MG 00:00: mouth [place] ORAL TAB 00 twice Medical daily Branch IBUPROFEN 2005- Yes Take one Univ ers 600 MG ORAL 2-15 tablet by ity of TAB 00:00: mouth [place] 00 every six Medical hours as Branch needed for pain Yes Take one Unive rs VIT-IRON 2-15 tablet by ity of FUMARATE-FA 00:00: mouth [place] 60-1 MG 00 daily Medical ORAL TAB Branch DOCUSATE Yes Take one Unive rs CALCIUM 240 2-15 capsule by it y of MG ORAL CAP 00:00: mouth [place] 00 daily as Medical needed for Branch constipati on FERROUS Yes Take one Univer s SULFATE 300 2-15 tablet by ity of (60) MG 00:00: mouth [place] ORAL TAB 00 twice Medical daily Branch IBUPROFEN Yes Take one Univ ers 600 MG ORAL 2-15 tablet by ity of TAB 00:00: mouth [place] 00 every six Medical hours as Branch needed for pain Yes Take one Unive rs VIT-IRON 2-15 tablet by ity of FUMARATE-FA 00:00: mouth [place] 60-1 MG 00 daily Medical ORAL TAB Branch DOCUSATE Yes Take one Unive rs CALCIUM 240 2-15 capsule by it y of MG ORAL CAP 00:00: mouth [place] 00 daily as Medical needed for Branch constipati on FERROUS Yes Take one Univer s SULFATE 300 2-15 tablet by ity of (60) MG 00:00: mouth [place] ORAL TAB 00 twice Medical daily Branch IBUPROFEN Yes Take one Univ ers 600 MG ORAL 2-15 tablet by ity of TAB 00:00: mouth [place] 00 every six Medical hours as Branch needed for pain Yes Take one Unive rs VIT-IRON 2-15 tablet by ity of FUMARATE-FA 00:00: mouth [place] 60-1 MG 00 daily Medical ORAL TAB Branch DOCUSATE Yes Take one Unive rs CALCIUM 240 2-15 capsule by it y of MG ORAL CAP 00:00: mouth [place] 00 daily as Medical needed for Branch constipati on FERROUS Yes Take one Univer s SULFATE 300 2-15 tablet by ity of (60) MG 00:00: mouth [place] ORAL TAB 00 twice Medical daily Branch HYDROCODONE Yes Take one Un mandi -ACETAMINOP 2-15 tablet by ity of HEN 5-325 00:00: mouth [place] MG ORAL TAB 00 every six Med ical hours as Branch needed for pain IBUPROFEN Yes Take one Univ ers 600 MG ORAL 2-15 tablet by ity of TAB 00:00: mouth [place] 00 every six Medical hours as Branch needed for pain Yes Take one Unive rs VIT-IRON 2-15 tablet by ity of FUMARATE-FA 00:00: mouth [place] 60-1 MG 00 daily Medical ORAL TAB Branch DOCUSATE Yes Take one Unive rs CALCIUM 240 2-15 capsule by it y of MG ORAL CAP 00:00: mouth [place] 00 daily as Medical needed for Branch constipati on FERROUS Yes Take one Univer s SULFATE 300 2-15 tablet by ity of (60) MG 00:00: mouth [place] ORAL TAB 00 twice Medical daily Branch HYDROCODONE Yes Take one Un mandi -ACETAMINOP 2-15 tablet by ity of HEN 5-325 00:00: mouth [place] MG ORAL TAB 00 every six Med ical hours as Branch needed for pain IBUPROFEN Yes Take one Univ ers 600 MG ORAL 2-15 tablet by ity of TAB 00:00: mouth [place] 00 every six Medical hours as Branch needed for pain Yes Take one Unive rs VIT-IRON 2-15 tablet by ity of FUMARATE-FA 00:00: mouth [place] 60-1 MG 00 daily Medical ORAL TAB Branch DOCUSATE Yes Take one Unive rs CALCIUM 240 2-15 capsule by it y of MG ORAL CAP 00:00: mouth [place] 00 daily as Medical needed for Branch constipati on FERROUS Yes Take one Univer s SULFATE 300 2-15 tablet by ity of (60) MG 00:00: mouth [place] ORAL TAB 00 twice Medical daily Branch HYDROCODONE Yes Take one Un mandi -ACETAMINOP 2-15 tablet by ity of HEN 5-325 00:00: mouth [place] MG ORAL TAB 00 every six Med ical hours as Branch needed for pain IBUPROFEN Yes Take one Univ ers 600 MG ORAL 2-15 tablet by ity of TAB 00:00: mouth [place] 00 every six Medical hours as Branch needed for pain HYDROCODONE 2020- No Take one U nivers -ACETAMINOP 2-15 04-04 tablet by it y of HEN 5-325 00:00: 00:00 mouth [place] MG ORAL TAB 00 :00 every six Med ical hours as Branch needed for pain Vital Signs Vital Name Observation Time Observation Value Comments Source Systolic blood 2021-12-04 16:52:00 146 mm[Hg] Univer sity of pressure [place] [facility] Diastolic blood 2021-12-04 16:52:00 90 mm[Hg] Unive rsity of pressure [place] [facility] Heart rate 2021-12-04 16:52:00 85 /min Universi ty of [place] [facility] Body temperature 2021-12-04 16:52:00 36.33 Loan Univ ersity of [place] [facility] Respiratory rate 2021-12-04 16:52:00 18 /min Univ ersity of [place] [facility] Oxygen saturation in 2021-12-04 16:52:00 96 /min University of Arterial blood by [facility] Pulse oximetry Branch Body weight 2021-12-02 08:31:00 153.497 kg [facility] [place] [facility] BMI 2021-12-02 08:31:00 59.94 kg/m2 [facility] [place] [facility] Body height 2021-12-01 19:33:00 160 cm [facility] [place] [facility] Systolic blood 2021-07-22 00:15:00 153 mm[Hg] Univer sity of pressure [place] [facility] Diastolic blood 2021-07-22 00:15:00 93 mm[Hg] Unive rsity of pressure [place] [facility] Heart rate 2021-07-22 00:15:00 88 /min Universi ty [facility] [place] [facility] Oxygen saturation in 2021-07-22 00:15:00 98 /min University of Arterial blood by [facility] Pulse oximetry Branch Body temperature 2021-07-21 23:28:15 36.67 Loan Univ ersity of [place] [facility] Respiratory rate 2021-07-21 23:28:15 18 /min Univ ersity of [place] [facility] Body height 2021-07-21 23:21:00 157.5 cm [facility] [place] [facility] Body weight 2021-07-21 23:21:00 172.367 kg [facility] [place] [facility] BMI 2021-07-21 23:21:00 69.50 kg/m2 [facility] [place] [facility] Systolic blood 2020-08-03 12:00:00 118 mm[Hg] Univer sity of pressure [place] [facility] Diastolic blood 2020-08-03 12:00:00 63 mm[Hg] Unive rsity of pressure [place] [facility] Heart rate 2020-08-03 12:00:00 66 /min [facility] [place] [facility] Body temperature 2020-08-03 12:00:00 35.89 Loan Univ ersity of [place] [facility] Respiratory rate 2020-08-03 12:00:00 15 /min Univ ersity of [place] [facility] Oxygen saturation in 2020-08-03 12:00:00 98 /min University of Arterial blood by [facility] Pulse oximetry Branch Body weight 2020-08-02 08:41:00 157.489 kg [facility] [place] [facility] BMI 2020-08-02 08:41:00 63.50 kg/m2 [facility] [place] [facility] Body height 2020-07-30 20:25:00 157.5 cm [facility] [place] [facility] Systolic blood 2020-07-31 15:48:00 143 mm[Hg] Univer sity of pressure [place] [facility] Diastolic blood 2020-07-31 15:48:00 73 mm[Hg] Unive rsity of pressure [place] [facility] Heart rate 2020-07-31 15:48:00 82 /min [facility]i ty [facility] [place] [facility] Body temperature 2020-07-31 15:48:00 36.89 Loan Univ ersity of [place] [facility] Respiratory rate 2020-07-31 15:48:00 16 /min Univ ersity of [place] [facility] Oxygen saturation in 2020-07-31 15:48:00 100 /min University of Arterial blood by [facility] Pulse oximetry Branch Body weight 2020-07-31 09:00:00 155.839 kg [facility] ty [facility] [place] [facility] BMI 2020-07-31 09:00:00 26.70 kg/m2 [facility] [place] [facility] Body height 2020-07-30 20:25:00 157.5 cm [facility] [place] [facility] Systolic blood 2020-07-30 14:54:00 160 mm[Hg] Univer sity of pressure [place] [facility] Diastolic blood 2020-07-30 14:54:00 93 mm[Hg] Unive rsity of pressure [place] [facility] Heart rate 2020-07-30 14:51:00 86 /min [facility] [place] [facility] Body temperature 2020-07-30 14:51:00 36.89 Loan Univ ersity of [place] [facility] Respiratory rate 2020-07-30 14:51:00 18 /min Univ ersity of [place] [facility] Body height 2020-07-30 14:51:00 157.5 cm [facility] Body weight 2020-07-30 14:51:00 153.951 kg [facility] BMI 2020-07-30 14:51:00 62.08 kg/m2 [facility] Oxygen saturation in 2020-07-30 14:51:00 99 /min [facility] Arterial blood by [facility] Pulse oximetry Branch Procedures Procedure Date / Time Performing Clinician Source Performed REFERRAL- 2021-12-31 05:01:00 Doctor Unassigned, [facility] REQUEST/RESPONSE [facility] POCT GLUCOSE (AUTOMATED) 2021-12-04 16:53:00 Jackie Dye [facility] [place] POCT GLUCOSE (AUTOMATED) 2021-12-04 12:47:00 Jackie Dye [facility] BASIC METABOLIC PANEL 2021-12-04 10:31:00 [facility], K, CL, CO2, GLUCOSE, Medica l Branch BUN, CREATININE, CA) CBC WITH DIFF 2021-12-04 10:31:00 [facility] POCT GLUCOSE (AUTOMATED) 2021-12-04 01:23:00 Jackie Dye [facility] [place] POCT GLUCOSE (AUTOMATED) 2021-12-03 22:04:00 Jackie Dye [facility] [place] POCT GLUCOSE (AUTOMATED) 2021-12-03 16:41:00 Jackie Dye Uni [facility] [place] POCT GLUCOSE (AUTOMATED) 2021-12-03 12:38:00 Jackie Dye [facility] [place] BASIC METABOLIC PANEL 2021-12-03 08:53:00 [facility] (NA, K, CL, CO2, GLUCOSE, Medica l Branch BUN, CREATININE, CA) CBC WITH DIFF 2021-12-03 08:53:00 [facility] POCT GLUCOSE (AUTOMATED) 2021-12-03 01:29:00 Jackie Dye [facility] [place] POCT GLUCOSE (AUTOMATED) 2021-12-02 21:54:00 Jackie Dye [facility] POCT GLUCOSE (AUTOMATED) 2021-12-02 17:05:00 Hardik Jackie [facility] POCT GLUCOSE (AUTOMATED) 2021-12-02 13:28:00 Jackie Dye [facility] BASIC METABOLIC PANEL 2021-12-02 08:35:00 Jackie Dye [facility] (NA, K, CL, CO2, GLUCOSE, Medica l Branch BUN, CREATININE, CA) LIPID PANEL ([id number])(TOTAL 2021-12-02 08:35:00 Jackie Dye [facility], HDL) CBC WITH DIFF 2021-12-02 08:35:[address] [facility] POCT GLUCOSE (AUTOMATED) 2021-12-02 04:28:00 Jackie Dye [facility] POCT GLUCOSE (AUTOMATED) 2021-12-02 01:21:00 [facility] 2021-12-01 23:26:00 Hardik Jackie [facility] POCT GLUCOSE (AUTOMATED) 2021-12-01 22:38:00 [facility]ATED) 2021-12-01 18:23:00 Jackie Dye [facility] GC & CHLAMYDIA AMPLIFIED 2021-12-01 16:58:00 Jerica Caro [facility] ADC CLC OR LCC ONLY - WET 2021-12-01 15:27:00 Jerica Caro [facility] HB ABO GROUPING 2021-12-01 14:20:00 Rashi [facility] US OVARY TORSION 2021-12-01 13:52:24 Singer [facility] CT ABDOMEN PELVIS WO 2021-12-01 12:58:38 Rashi Rogel [facility] CONTRAST [facility] POCT TEST 2021-12-01 12:46:00 Rashi Rogel [facility] COMP. METABOLIC PANEL 2021-12-01 12:37:00 Singer Rashi [facility] ([id number]) Medical Branch CBC WITH DIFF 2021-12-01 12:37:00 Singer [facility] GLYCOSYLATED HEMOGLOBIN 2021-12-01 12:37:00 Jerica Caro [facility] (A1C) Medical Branch URINALYSIS 2021-12-01 12:37:00 Singer [facility] URINE CULTURE 2021-12-01 12:37:00 Singer [facility] COVID-19 (ID NOW RAPID 2021-12-01 12:37:00 [facility] TESTING) Medical Branch LAB ONLY COVID 2021-12-01 12:37:00 Singer [facility] INTERPRETATION [facility] CONSENT/REFUSAL FOR 2021-12-01 11:54:29 Doctor Unassigned, [facility] DIAGNOSIS AND TREATMENT [facility] NOTICE OF PRIVACY 2021-07-21 23:16:24 Doctor Unassigned, [facility] PRACTICES [facility] CONSENT/REFUSAL FOR 2021-07-21 23:16:09 Doctor Unassigned, [facility] DIAGNOSIS AND TREATMENT [facility] BASIC METABOLIC PANEL 2020-08-03 09:56:00 Yohannes Denton [facility] (NA, K, CL, CO2, GLUCOSE, Medica l Branch BUN, CREATININE, CA) CBC WITH DIFF 2020-08-03 09:56:00 Yohannes [facility]enton [facility] POCT GLUCOSE (AUTOMATED) 2020-08-03 01:06:00 Yohannes Denton [facility] POCT GLUCOSE (AUTOMATED) 2020-08-02 20:58:00 Yohannes Denton [facility] POCT GLUCOSE (AUTOMATED) 2020-08-02 16:33:00 Yohannes Denton [facility] POCT GLUCOSE (AUTOMATED) 2020-08-02 12:45:00 Yohannes Denton [facility] POCT GLUCOSE (AUTOMATED) 2020-08-02 01:15:00 Yohannes Denton [facility] POCT GLUCOSE (AUTOMATED) 2020-08-01 21:19:00 [facility] ([facility]) 2020-08-01 16:47:00 Yohannes Denton [facility] POCT GLUCOSE (AUTOMATED) 2020-08-01 16:47:00 [facility]annes Denton [facility] [place] [facility]SE (AUTOMATED) 2020-08-01 12:26:00 Yohannes Denton [facility] [place] [facility]UCOSE (AUTOMATED) 2020-08-01 12:26:00 Yohannes Denton [facility] CBC WITH DIFF 2020-08-01 08:20:00 [facility] CBC WITH DIFF 2020-08-01 08:20:00 [facility] 2020-08-01 02:19:00 Y[facility]annes Denton [facility] [place] [facility]SE ([facility]OMATED) 2020-08-01 02:19:00 Y[facility]annes Denton [facility] [place] [facility]UCOSE (AUTOMATED) 2020-07-31 21:09:00 Yohannes Denton [facility] [place] [facility]SE (AUTOMATED) 2020-07-31 21:09:00 Yohannes Denton [facility] [place] ASPIRATE OR ABSCESS 2020-07-31 17:25:19 Verona Taylor [facility] CULTURE(AEROBIC/ANAEROBIC Medica l Branch ) ASPIRATE OR ABSCESS 2020-07-31 17:25:19 Verona Taylor [facility] CULTURE(AEROBIC/ANAEROBIC Medica l Branch ) ASPIRATE OR ABSCESS 2020-07-31 17:24:22 Verona Taylor [facility] CULTURE(AEROBIC/ANAEROBIC Medica l Branch ) ASPIRATE OR ABSCESS 2020-07-31 17:24:22 Verona Taylor [facility] CULTURE(AEROBIC/ANAEROBIC Medica l Branch ) INCISION AND DRAINAGE 2020-07-31 16:47:[address] [facility] INCISION AND DRAINAGE 2020-07-31 16:47:00 [facility] POCT TEST 2020-07-31 16:05:00 Jacobo Lopez [facility] POCT TEST 2020-07-31 16:05:00 Jacobo Lopez [facility] POCT GLUCOSE (AUTOMATED) 2020-07-31 15:46:00 Yohannes Denton [facility] POCT GLUCOSE (AUTOMATED) 2020-07-31 15:46:00 Yohannes Denton [facility] [place] [facility]SE ([facility]OMATED) 2020-07-31 13:51:00 Y[facility]annes Denton [facility] [place] [facility]UCOSE (AUTOMATED) 2020-07-31 13:51:00 Y[facility]annes Denton [facility] [place] [facility]UCOSE (AUTOMATED) 2020-07-31 12:31:00 Yohannes Denton [facility] [place] POCT GLUCOSE (AUTOMATED) 2020-07-31 12:31:00 Yohannes Denton [facility] CBC WITH DIFF 2020-07-31 09:00:00 Yohannes Denton [facility] GLYCOSYLATED HEMOGLOBIN 2020-07-31 09:00:00 Rosa Boykin [facility] (A1C) [place] CBC WITH DIFF 2020-07-31 09:00:00 Yohannes Denton [facility] GLYCOSYLATED HEMOGLOBIN 2020-07-31 09:00:00 Rosa Boykin [facility] (A1C) [facility] POCT GLUCOSE (AUTOMATED) 2020-07-31 05:06:00 Yohannes Denton [facility] POCT GLUCOSE (AUTOMATED) 2020-07-31 05:06:00 Yohannes Denton [facility] [place] POCT GLUCOSE (AUTOMATED) 2020-07-31 00:50:00 Yohannes Denton [facility] POCT GLUCOSE (AUTOMATED) 2020-07-31 00:50:00 Yohannes Denton [facility] URINALYSIS 2020-07-30 19:28:00 April Peralta [facility] WOUND CULTURE 2020-07-30 19:28:00 April Peralta [facility] URINALYSIS 2020-07-30 19:28:00 April Peralta [facility] WOUND/ASPIRATE OR ABSCESS 2020-07-30 19:28:00 [facility] WOUND CULTURE 2020-07-30 19:28:00 April Peralta [facility] POCT TEST 2020-07-30 18:46:00 April Peralta [facility] POCT TEST 2020-07-30 18:46:00 April Peralta [facility] BLOOD CULTURE SCREEN 2020-07-30 17:44:00 April Peralta [facility] MAGNESIUM 2020-07-30 17:44:00 April Peralta [facility] COMP. METABOLIC PANEL 2020-07-30 17:44:00 April Peralta [facility] ([id number]) Medical Branch CBC WITH DIFF 2020-07-30 17:44:00 April Peralta [facility] COVID-19 (ID NOW RAPID 2020-07-30 17:44:00 April Peralta [facility] TESTING) Medical Branch BLOOD CULTURE SCREEN 2020-07-30 17:44:00 April Peralta [facility] MAGNESIUM 2020-07-30 17:44:00 April Peralta [facility] COMP. METABOLIC PANEL 2020-07-30 17:44:00 April Peralta [facility] ([id number]) Medical Branch CBC WITH DIFF 2020-07-30 17:44:00 April Peralta [facility] COVID-19 (ID NOW RAPID 2020-07-30 17:44:00 April Peralta [facility] TESTING) Medical Branch CONSENT/REFUSAL FOR 2020-07-30 15:52:48 Doctor Unassigned, [facility] DIAGNOSIS AND TREATMENT [facility] Encounters Start End Encounter Admission Attending Care Care Encounter Source Date/Time Date/Time Type Type Clinicians Facility Department ID 2021-03-01 Emergency [facility] [id number] Univers 09:46:38 [facility] [place] [facility] 2021-12-31 2021-12-31 Orders Doctor MALA [id number] Univers 00:00:00 00:00:00 Only Unassigned, OPAL [id number] ity of [place] [facility] [id number] [place] as [phone] [address] 2021-12-01 2021-12-04 Outpatient X HARDIK [facility] ESTELA [id number] Univers 07:13:00 15:40:00 JACKIE itharsha [facility] 2021-12-01 2021-12-04 Emergency Rashi Rogel [facility] 1.2.840. [id number] Univers 07:13:00 15:40:00 Jackie Dye [id number] [id number] [id number] [address] 2021-07-21 2021-07-21 Emergency X JOAQUIN [facility] ERT [id number] Univers 18:36:00 19:21:00 MARIBEL ity [facility] 2021-07-21 2021-07-21 [facility] [id number] Univers 18:36:00 19:21:00 Maribel S MARY [id number] i [id number] [id number] [address] 2021-07-21 2021-07-21 Orders Doctor MEDEIROS [id number] Univers 00:00:00 00:00:00 Only Unassigned, OPAL [id number] [place]y of [place] [facility] [id number] [place] [id number] [address] 2020-11-25 2020-11-25 Telephone Cecilia Gold 1.2.840.114 [id number] Univers 00:00:00 00:00:00 , Roselyn Dixon [id number] [id number] [id number] [address] 2020-09-09 2020-09-09 Outpatient R KLIMBERG, [facility] [id number] Univers 14:00:00 14:00:00 ROBERT harsha [facility] 2020-08-26 2020-08-26 Outpatient Harry DAILY [facility] [id number] Univers 14:00:00 14:00:00 ROBERT molina [facility] 2020-08-12 2020-08-12 [facility] [id number] Univers 13:45:00 13:45:00 ROBERT harsha [facility] 2020-07-30 2020-08-03 Emergency April Peralta [facility] 1.2.840. [id number] Univers 11:39:00 11:31:00 Yohannes D[place] [id number] [id number] [id number] [facility] 081 Branch 2020-07-31 2020-07-31 [facility] [id number] Univers 11:30:00 12:29:00 Verona Amaya [id number] i [place]2.[place] [id number] [facility] 020 Branch 2020-07-30 2020-07-30 Urgent Provider, [facility] Care [facility] [id number] Univers 09:40:02 11:28:27 Care Melly Fatima [facility] [id number] [facility] [id number] [place] as Professio [phone] [facility] [address] 2020-07-30 2020-07-30 Outpatient Harry FATIMA [facility] [id number] Univers 09:40:00 09:40:00 MELLY molina [facility] 2020-07-30 2020-07-30 Orders Doctor MEDEIROS [id number] Univers 00:00:00 00:00:00 Only Unassigned, OPAL [id number] ity of [place] [facility] [id number] [place] as [phone] [address] Results Test Description Test Time Test Comments Results Result Comments Source CULTURE, URINE 2021-12-25 SPECIMEN NUMBER: 10:03:29 [id number] CULTURE, URINE SPECIMEN NUMBER: [id number] SPECIMEN COMMENT: URINE SOURCE: URINE REPORT STATUS: FINAL FINAL REPORT: 12/25/2021 >100,000 CFU/ML UROGENITAL CASIE PRESENT NO COMMON PATHOGENS UNLESS OTHERWISE INDICATED, ALL TESTING PERFORMED [facility] [address] [place] [address] SALES FLOOR MANAGER: NERY KEE M.D. CLIA NUMBER [id number] [place]. [id number] POCT GLUCOSE (AUTOMATED) 2021-12-04 20:21:14 Test Item Value Reference Range Interpretation Comme nts POCT GLU (test code = 7036492118) 157 mg/dL 70-110 H Lab Interpretation (test code = 81315-5) Abnormal [facility] GLUCOSE (AUTOMATED)2021-12-04 14:01:32 Test Item Value Reference Range Interpretation Comments POCT GLU (test code = 1622877146) 167 mg/dL 70-110 H Lab Interpretation (test code = Abnormal 35380-1) [facility] GLUCOSE (AUTOMATED)2021-12-04 12:58:18 Test Item Value Reference Range Interpretation Comments POCT GLU (test code = 1889309892) 226 mg/dL 70-110 H Lab Interpretation (test code = Abnormal 60076-1) [facility] GLUCOSE (AUTOMATED)2021-12-03 22:06:43 Test Item Value Reference Range Interpretation Comments POCT GLU (test code = 3017287384) 210 mg/dL 70-110 H Lab Interpretation (test code = Abnormal 02845-1) [facility] GLUCOSE (AUTOMATED)2021-12-03 16:43:47 Test Item Value Reference Range Interpretation Comments POCT GLU (test code = 7454368522) 228 mg/dL 70-110 H Lab Interpretation (test code = Abnormal 47393-9) [facility] GLUCOSE (AUTOMATED)2021-12-03 12:42:56 Test Item Value Reference Range Interpretation Comments POCT GLU (test code = 0353801957) 207 mg/dL 70-110 H Lab Interpretation (test code = Abnormal 27598-7) [facility] GLUCOSE (AUTOMATED)2021-12-03 01:48:58 Test Item Value Reference Range Interpretation Comments POCT GLU (test code = 5035939805) 265 mg/dL 70-110 H Lab Interpretation (test code = Abnormal 18699-8) [facility] GLUCOSE (AUTOMATED)2021-12-02 21:57:50 Test Item Value Reference Range Interpretation Comments POCT GLU (test code = 6621134943) 220 mg/dL 70-110 H Lab Interpretation (test code = Abnormal 17556-2) [facility] GLUCOSE (AUTOMATED)2021-12-02 17:13:24 Test Item Value Reference Range Interpretation Comments POCT GLU (test code = 4008157459) 251 mg/dL 70-110 H Lab Interpretation (test code = Abnormal 13899-0) [facility] GLUCOSE (AUTOMATED)2021-12-02 13:31:54 Test Item Value Reference Range Interpretation Comments POCT GLU (test code = 8293103776) 266 mg/dL 70-110 H Lab Interpretation (test code = Abnormal 91269-6) [facility] GLUCOSE (AUTOMATED)2021-12-02 04:48:00 Test Item Value Reference Range Interpretation Comments POCT GLU (test code = 2628750116) 194 mg/dL 70-110 H Lab Interpretation (test code = Abnormal 61694-3) [facility] GLUCOSE (AUTOMATED)2021-12-02 01:57:01 Test Item Value Reference Range Interpretation Comments POCT GLU (test code = 3378848353) 326 mg/dL 70-110 H Lab Interpretation (test code = Abnormal 90755-9) [facility] GLUCOSE (AUTOMATED)2021-12-01 22:44:33 Test Item Value Reference Range Interpretation Comments POCT GLU (test code = 0781424219) 375 mg/dL 70-110 H Lab Interpretation (test code = Abnormal 26302-0) [facility] GLUCOSE (AUTOMATED)2021-12-01 18:28:02 Test Item Value Reference Range Interpretation Comments POCT GLU (test code = 4169008196) 291 mg/dL 70-110 H Lab Interpretation (test code = Abnormal 68783-8) [facility] - WET [id number] 16:25:19 Test Item Value Reference Range Interpretation Comments CLUE CELLS WET PREP (test code = Few None Seen HPF A 2201982031) BACTERIA WET PREP (test code = Many None Seen HPF A 9367986284) WBC WET PREP (test code = Few None Seen HPF A 5876047097) RBC WET PREP (test code = Few None Seen HPF A 2357742893) TRICHOMONAS WET PREP (test code = None Seen None Seen HPF 4864973667) YEAST WET PREP (test code = None Seen None Seen HPF 2913547525) Lab Interpretation (test code = Abnormal 84318-0) [facility] Screen - ONCE [id number] 15:33:30 Test Item Value Reference Range Interpretation Comments ABO & RH (test code B Positive Performe d at [facility] = 20) Laboratory Serv [facility]1 [address] [place], [place] [address]Toll Free: [phone] A No. [id number] IAT (test code = Negative Performed a t [facility] 1185) Laboratory Serv [facility]1 [address] [place], [place] [address]Toll Free: [phone] A No. [id number] [facility] HospitalGLYCOSYLATED HEMOGLOBIN (A1C)2021-12-01 14:56:28 Test Item Value Reference Range Interpretation Comments HGB A1C (test code = 12.1 % 4-5.7 H 4548-4) DAVE (test code = DAVE) Reference RangesNormal: <5.7%Prediabetes: 5.7 - 6.4%Diabetes: > 6.5% Lab Interpretation (test Abnormal code = 64779-2) [facility] HospitalCOMP. METABOLIC PANEL (73952)2021-12-01 13:41:00 Test Item Value Reference Range Interpretation Comments NA (test code = 136 mmol/L 135-145 1979901620) K (test code = 5.0 mmol/L 3.5-5 3451353776) CL (test code = 99 mmol/L 98-108 1194198908) CO2 TOTAL (test code = 25 mmol/L 23-31 0010137439) AGAP (test code = 2-16 1140210986) BUN (test code = 17 mg/dL 7-23 8640417232) GLUCOSE (test code = 374 mg/dL 70-110 H 9860135279) CREATININE (test code = 0.52 mg/dL 0.5-1.04 6249799019) TOTAL BILI (test code = 0.6 mg/dL 0.1-1.1 1898742608) CALCIUM (test code = 9.1 mg/dL 8.6-10.6 1850691532) T PROTEIN (test code = 8.7 g/dL 6.3-8.2 H 0646774136) ALBUMIN (test code = 4.2 g/dL 3.5-5 5059354531) ALK PHOS (test code = 117 U/L 34-122 7220278135) ALTv (test code = 22 U/L 5-35 2-6) AST(SGOT) (test code = 27 U/L 13-40 3835389535) eGFR (test code = mL/min/1.73m2 1393463395) DAVE (test code = DAVE) Association of Glomerular Filtration Rate (GFR) and Staging of Kidney Disease* + --+ --+ ------+| GFR (mL/min/1.73 m2) ?| With Kidney Damage ?| ?Without Kidney Damage+ --------+ --------+ +| ?>90 ?| ?Stage one ?| ? Normal ?+ ---+ ---+ -------+| ?60-89 ?| ?Stage two ?| ? Decreased GFR ? + --+ --+ ------+| ?30-59 ?| ?Stage three ?| ? Stage three ? + --+ --+ ------+| ?15-29 ?| ?Stage four ? | ? Stage four ?+ ---+ ---+ -------+| ?<15 (or dialysis) ? ?| ?Stage five ? | ? Stage five ?+ ---+ ---+ -------+ *Each stage assumes the associated GFR level has been in effect for at least three months. ?Stages 1 to 5, with or without kidney disease, indicate chronic kidney disease. Notes: Determination of stages one and two (with eGFR >59mL/min/1.73 m2) requires estimation of kidney damage for at least three months as defined by structural or functional abnormalities of the kidney, manifested by either:Pathological abnormalities or Markers of kidney damage (including abnormalities in the composition of the blood or urine or abnormalities in imaging tests). Lab Interpretation Abnormal (test code = 62987-6) [facility] WITH [id number] 13:24:20 Test Item Value Reference Range Interpretation Comments WBC (test code = See_Comment H [Automated 6690-2) message] The system which generated this result transmit shadia reference range : 4.30 - 11.10 10*3/?L. The reference range was not used to interpret this result as normal/abnormal . RBC (test code = See_Comment [Automated 789-8) message] The system which generated this result transmit shadia reference range : 3.93 - 5.25 10*6/?L. The reference range was not used to interpret this result as normal/abnormal . HGB (test code = 12.0 g/dL 11.6-15 718-7) HCT (test code = 36.1 % 35.7-45.2 4544-3) MCV (test code = 84.1 fL 80.6-95.5 787-2) MCH (test code = 28.0 pg 25.9-32.8 785-6) MCHC (test code = 33.2 g/dL 31.6-35.1 786-4) RDW-SD (test code = 40.6 fL 39-49.9 07409-9) RDW-CV (test code = 13.3 % 12-15.5 788-0) PLT (test code = See_Comment [Automated 777-3) message] The system which generated this result transmit shadia reference range : 166 - 358 10*3/ ?L. The reference range was not u sed to interpret th is result as normal/abnormal . MPV (test code = 11.0 fL 9.5-12.9 25348-2) NRBC/100 WBC (test See_Comment [Automat ed code = 1804085879) message] The system which generated this result transmit shadia reference range : 0.0 - 10.0 /100 WBCs. The reference range was not used to interpret this result as normal/abnormal . NRBC x10^3 (test code See_Comment [Auto mated = 6493366599) message] The system which generated this result transmit shadia reference range : 10*3/?L. The reference range was not used to interpret this result as normal/abnormal . GRAN MAT (NEUT) % 80.0 % (test code = 770-8) IMM GRAN % (test code 0.40 % = 3300618790) LYMPH % (test code = 13.8 % 736-9) MONO % (test code = 4.9 % 5905-5) EOS % (test code = 0.7 % 713-8) BASO % (test code = 0.2 % 706-2) GRAN MAT x10^3(ANC) 10.19 10*3/uL 1.88-7.09 H (test code = 5489907982) IMM GRAN x10^3 (test 0.05 10*3/uL 0-0.06 code = 3221559301) LYMPH x10^3 (test code 1.76 10*3/uL 1.32-3.29 = 731-0) MONO x10^3 (test code 0.63 10*3/uL 0.33-0.92 = 742-7) EOS x10^3 (test code = 0.09 10*3/uL 0.03-0.39 711-2) BASO x10^3 (test code 0.03 10*3/uL 0.01-0.07 = 704-7) Lab Interpretation Abnormal (test code = 96519-6) [facility] HospitalPODC [id number] 12:46:00 Test Item Value Reference Range Interpretation Comments POCT PREG (test code = 1605) negative On board controls acceptable with present C Line (test code = 3574) POCT PREG LOT # (test code = 3575) [id number] POCT PREG TEST DATE (test 03/01/23 code = 3576) Lab Interpretation (test code = Normal 72188-8) [facility] METABOLIC PANEL (NA, K, CL, CO2, GLUCOSE, BUN, CREATININE, CA)2020-08-03 11:00:04 Test Item Value Reference Range Interpretation Comments NA (test code = 138 mmol/L 135-145 5484598120) K (test code = 3.8 mmol/L 3.5-5.0 3352017695) CL (test code = 105 mmol/L 98-108 7746872637) CO2 TOTAL (test code = 28 mmol/L 23-31 7667697082) AGAP (test code = 2-16 3162448925) BUN (test code = 10 mg/dL 7-23 4471895769) GLUCOSE (test code = 219 mg/dL 70-110 H 5324883317) CREATININE (test code = 0.62 mg/dL 0.50-1.04 6979406312) CALCIUM (test code = 8.1 mg/dL 8.6-10.6 L 9348635703) eGFR (test code = mL/min/1.73m2 4968372811) DAVE (test code = DAVE) Association of Glomerular Filtration Rate (GFR) and Staging of Kidney Disease* + --+ --+ ------+| GFR (mL/min/1.73 m2) ?| With Kidney Damage ?| ?Without Kidney Damage+ --------+ --------+ +| ?>90 ?| ?Stage one ?| ? Normal ?+ ---+ ---+ -------+| ?60-89 ?| ?Stage two ?| ? Decreased GFR ? + --+ --+ ------+| ?30-59 ?| ?Stage three ?| ? Stage three ? + --+ --+ ------+| ?15-29 ?| ?Stage four ? | ? Stage four ?+ ---+ ---+ -------+| ?<15 (or dialysis) ? ?| ?Stage five ? | ? Stage five ?+ ---+ ---+ -------+ *Each stage assumes the associated GFR level has been in effect for at least three months. ?Stages 1 to 5, with or without kidney disease, indicate chronic kidney disease. Notes: Determination of stages one and two (with eGFR >59mL/min/1.73 m2) requires estimation of kidney damage for at least three months as defined by structural or functional abnormalities of the kidney, manifested by either:Pathological abnormalities or Markers of kidney damage (including abnormalities in the composition of the blood or urine or abnormalities in imaging tests). Lab Interpretation Abnormal (test code = 79232-3) [facility] WITH [id number] 10:48:24 Test Item Value Reference Range Interpretation Comments WBC (test code = See_Comment [Automated 6690-2) message] The sy stem which generated this result transmitted reference range : 4.30 - 11.10 10*3/?L. The reference range was not used to interpret this result as normal/abnormal . RBC (test code = See_Comment L [Automated 789-8) message] The sy stem which generated this result transmitted reference range : 3.93 - 5.25 10*6/?L. The reference range was not used to interpret this result as normal/abnormal . HGB (test code = 9.2 g/dL 11.6-15.0 L 718-7) HCT (test code = 27.7 % 35.7-45.2 L 4544-3) MCV (test code = 83.4 fL 80.6-95.5 787-2) MCH (test code = 27.7 pg 25.9-32.8 785-6) MCHC (test code = 33.2 g/dL 31.6-35.1 786-4) RDW-SD (test code = 40.7 fL 39.0-49.9 26810-6) RDW-CV (test code = 13.4 % 12.0-15.5 788-0) PLT (test code = See_Comment [Automated 777-3) message] The sy stem which generated this result transmitted reference range : 166 - 358 10*3/ ?L. The reference r chester was not used to interpret this result as normal/abnormal . MPV (test code = 9.6 fL 9.5-12.9 29293-6) NRBC/100 WBC (test See_Comment [Automat ed code = 0690583403) message] The system which generated this result transmitted reference range : 0.0 - 10.0 /100 WBCs. The refer ence range was not u sed to interpret th is result as normal/abnormal . NRBC x10^3 (test code <0.01 See_Comment [Auto mated = 2301598010) message] The s ystem which generated this result transmitted reference range : 10*3/?L. The reference range was not used to interpret this result as normal/abnormal . GRAN MAT (NEUT) % 62.0 % (test code = 770-8) IMM GRAN % (test code 0.20 % = 9872750157) LYMPH % (test code = 27.3 % 736-9) MONO % (test code = 8.4 % 5905-5) EOS % (test code = 1.7 % 713-8) BASO % (test code = 0.4 % 706-2) GRAN MAT x10^3(ANC) 2.88 10*3/uL 1.88-7.09 (test code = 7840164021) IMM GRAN x10^3 (test <0.03 0.00-0.06 code = 8865510898) LYMPH x10^3 (test code 1.27 10*3/uL 1.32-3.29 L = 731-0) MONO x10^3 (test code 0.39 10*3/uL 0.33-0.92 = 742-7) EOS x10^3 (test code = 0.08 10*3/uL 0.03-0.39 711-2) BASO x10^3 (test code <0.03 0.01-0.07 = 704-7) Lab Interpretation Abnormal (test code = 39376-2) [facility] GLUCOSE (AUTOMATED)2020-08-03 01:31:22 Test Item Value Reference Range Interpretation Comments POCT GLU (test code = 8396212230) 200 mg/dL 70-110 H Lab Interpretation (test code = Abnormal 40378-3) [facility] GLUCOSE (AUTOMATED)2020-08-03 01:31:22 Test Item Value Reference Range Interpretation Comments POCT GLU (test code = 1076235380) 277 mg/dL 70-110 H Lab Interpretation (test code = Abnormal 90440-2) [facility] GLUCOSE (AUTOMATED)2020-08-03 01:31:22 Test Item Value Reference Range Interpretation Comments POCT GLU (test code = 5811584753) 184 mg/dL 70-110 H Lab Interpretation (test code = Abnormal 39872-7) [facility] GLUCOSE (AUTOMATED)2020-08-03 01:31:17 Test Item Value Reference Range Interpretation Comments POCT GLU (test code = 8874071030) 234 mg/dL 70-110 H Lab Interpretation (test code = Abnormal 92597-9) [facility] GLUCOSE (AUTOMATED)2020-08-02 01:53:48 Test Item Value Reference Range Interpretation Comments POCT GLU (test code = 3417586173) 281 mg/dL 70-110 H Lab Interpretation (test code = Abnormal 85202-6) [facility] GLUCOSE (AUTOMATED)2020-08-01 22:48:21 Test Item Value Reference Range Interpretation Comments POCT GLU (test code = 2500378843) 289 mg/dL 70-110 H Lab Interpretation (test code = Abnormal 44962-9) [facility] [id number] 21:51:55 Test Item Value Reference Range Interpretation Comments Wound Culture 1+ Actinomyces species (test code = 6462-6) Gram stain Moderate Seen on (test code = Polymorphonuclear smear/stai n, not 664-3) leukocytes recovered on culture. [facility] GLUCOSE (AUTOMATED)2020-08-01 16:49:41 Test Item Value Reference Range Interpretation Comments POCT GLU (test code = 8886711360) 260 mg/dL 70-110 H Lab Interpretation (test code = Abnormal 52396-9) [facility] GLUCOSE (AUTOMATED)2020-08-01 16:49:41 Test Item Value Reference Range Interpretation Comments POCT GLU (test code = 0970653051) 260 mg/dL 70-110 H Lab Interpretation (test code = Abnormal 62819-2) [facility] GLUCOSE (AUTOMATED)2020-08-01 12:52:27 Test Item Value Reference Range Interpretation Comments POCT GLU (test code = 3432143336) 322 mg/dL 70-110 H Lab Interpretation (test code = Abnormal 27494-1) [facility] GLUCOSE (AUTOMATED)2020-08-01 12:52:27 Test Item Value Reference Range Interpretation Comments POCT GLU (test code = 9357368386) 322 mg/dL 70-110 H Lab Interpretation (test code = Abnormal 07622-3) [facility] WITH [id number] 09:22:48 Test Item Value Reference Range Interpretation Comments WBC (test code = See_Comment [Automated 6690-2) message] The sy stem which generated this result transmitted reference range : 4.30 - 11.10 10*3/?L. The reference range was not used to interpret this result as normal/abnormal . RBC (test code = See_Comment L [Automated 789-8) message] The sy stem which generated this result transmitted reference range : 3.93 - 5.25 10*6/?L. The reference range was not used to interpret this result as normal/abnormal . HGB (test code = 9.6 g/dL 11.6-15.0 L 718-7) HCT (test code = 29.5 % 35.7-45.2 L 4544-3) MCV (test code = 83.8 fL 80.6-95.5 787-2) MCH (test code = 27.3 pg 25.9-32.8 785-6) MCHC (test code = 32.5 g/dL 31.6-35.1 786-4) RDW-SD (test code = 40.8 fL 39.0-49.9 43033-5) RDW-CV (test code = 13.3 % 12.0-15.5 788-0) PLT (test code = See_Comment [Automated 777-3) message] The sy stem which generated this result transmitted reference range : 166 - 358 10*3/ ?L. The reference r chester was not used to interpret this result as normal/abnormal . MPV (test code = 10.3 fL 9.5-12.9 55186-0) NRBC/100 WBC (test See_Comment [Automat ed code = 3438453764) message] The system which generated this result transmitted reference range : 0.0 - 10.0 /100 WBCs. The refer ence range was not u sed to interpret th is result as normal/abnormal . NRBC x10^3 (test code <0.01 See_Comment [Auto mated = 6997592596) message] The s ystem which generated this result transmitted reference range : 10*3/?L. The reference range was not used to interpret this result as normal/abnormal . GRAN MAT (NEUT) % 85.5 % (test code = 770-8) IMM GRAN % (test code 0.30 % = 7864725645) LYMPH % (test code = 10.0 % 736-9) MONO % (test code = 4.0 % 5905-5) EOS % (test code = 0.0 % 713-8) BASO % (test code = 0.2 % 706-2) GRAN MAT x10^3(ANC) 9.49 10*3/uL 1.88-7.09 H (test code = 2357735741) IMM GRAN x10^3 (test 0.03 10*3/uL 0.00-0.06 code = 2490522541) LYMPH x10^3 (test code 1.11 10*3/uL 1.32-3.29 L = 731-0) MONO x10^3 (test code 0.44 10*3/uL 0.33-0.92 = 742-7) EOS x10^3 (test code = <0.03 0.03-0.39 L 711-2) BASO x10^3 (test code <0.03 0.01-0.07 = 704-7) Lab Interpretation Abnormal (test code = 66540-2) [facility] WITH [id number] 09:22:48 Test Item Value Reference Range Interpretation Comments WBC (test code = See_Comment [Automated 6690-2) message] The sy stem which generated this result transmitted reference range : 4.30 - 11.10 10*3/?L. The reference range was not used to interpret this result as normal/abnormal . RBC (test code = See_Comment L [Automated 789-8) message] The sy stem which generated this result transmitted reference range : 3.93 - 5.25 10*6/?L. The reference range was not used to interpret this result as normal/abnormal . HGB (test code = 9.6 g/dL 11.6-15.0 L 718-7) HCT (test code = 29.5 % 35.7-45.2 L 4544-3) MCV (test code = 83.8 fL 80.6-95.5 787-2) MCH (test code = 27.3 pg 25.9-32.8 785-6) MCHC (test code = 32.5 g/dL 31.6-35.1 786-4) RDW-SD (test code = 40.8 fL 39.0-49.9 18264-2) RDW-CV (test code = 13.3 % 12.0-15.5 788-0) PLT (test code = See_Comment [Automated 777-3) message] The sy stem which generated this result transmitted reference range : 166 - 358 10*3/ ?L. The reference r chester was not used to interpret this result as normal/abnormal . MPV (test code = 10.3 fL 9.5-12.9 68357-3) NRBC/100 WBC (test See_Comment [Automat ed code = 6437106135) message] The system which generated this result transmitted reference range : 0.0 - 10.0 /100 WBCs. The refer ence range was not u sed to interpret th is result as normal/abnormal . NRBC x10^3 (test code <0.01 See_Comment [Auto mated = 9247047632) message] The s ystem which generated this result transmitted reference range : 10*3/?L. The reference range was not used to interpret this result as normal/abnormal . GRAN MAT (NEUT) % 85.5 % (test code = 770-8) IMM GRAN % (test code 0.30 % = 6609204737) LYMPH % (test code = 10.0 % 736-9) MONO % (test code = 4.0 % 5905-5) EOS % (test code = 0.0 % 713-8) BASO % (test code = 0.2 % 706-2) GRAN MAT x10^3(ANC) 9.49 10*3/uL 1.88-7.09 H (test code = 8990218766) IMM GRAN x10^3 (test 0.03 10*3/uL 0.00-0.06 code = 4682583612) LYMPH x10^3 (test code 1.11 10*3/uL 1.32-3.29 L = 731-0) MONO x10^3 (test code 0.44 10*3/uL 0.33-0.92 = 742-7) EOS x10^3 (test code = <0.03 0.03-0.39 L 711-2) BASO x10^3 (test code <0.03 0.01-0.07 = 704-7) Lab Interpretation Abnormal (test code = 24994-2) [facility] GLUCOSE (AUTOMATED)2020-08-01 02:23:22 Test Item Value Reference Range Interpretation Comments POCT GLU (test code = 0065639977) 426 mg/dL 70-110 H Lab Interpretation (test code = Abnormal 35798-1) [facility] GLUCOSE (AUTOMATED)2020-08-01 02:23:22 Test Item Value Reference Range Interpretation Comments POCT GLU (test code = 3663500176) 426 mg/dL 70-110 H Lab Interpretation (test code = Abnormal 02073-0) [facility] GLUCOSE (AUTOMATED)2020-07-31 21:27:42 Test Item Value Reference Range Interpretation Comments POCT GLU (test code = 8778444595) 286 mg/dL 70-110 H Lab Interpretation (test code = Abnormal 93308-3) [facility] GLUCOSE (AUTOMATED)2020-07-31 21:27:42 Test Item Value Reference Range Interpretation Comments POCT GLU (test code = 5479674650) 286 mg/dL 70-110 H Lab Interpretation (test code = Abnormal 41507-1) [facility] [id number] 16:05:00 Test Item Value Reference Range Interpretation Comments POCT PREG (test code = 1605) Negative On board controls acceptable with Yes C Line (test code = 3574) POCT PREG LOT # (test code = 3575) [id number] POCT PREG TEST DATE (test 2020-09-29 code = 3576) [facility] [id number] 16:05:00 Test Item Value Reference Range Interpretation Comments POCT PREG (test code = 1605) Negative On board controls acceptable with Yes C Line (test code = 3574) POCT PREG LOT # (test code = 3575) [id number] POCT PREG TEST DATE (test 2020-09-29 code = 3576) [facility] GLUCOSE (AUTOMATED)2020-07-31 15:50:31 Test Item Value Reference Range Interpretation Comments POCT GLU (test code = 6793142543) 267 mg/dL 70-110 H Lab Interpretation (test code = Abnormal 80159-2) [facility] GLUCOSE (AUTOMATED)2020-07-31 15:50:31 Test Item Value Reference Range Interpretation Comments POCT GLU (test code = 3739955560) 267 mg/dL 70-110 H Lab Interpretation (test code = Abnormal 32486-0) [facility] (A1C)2020-07-31 15:47:37 Test Item Value Reference Range Interpretation Comments HGB A1C (test code = 10.7 % 4.0-6.0 H 4548-4) DAVE (test code = DAVE) %A1C (NGSP) Interpretation (ADA)4.8-5.6 ? ? Normal or (Non-Diabetic Range)5.7-6.4 ? ? Increased Risk (Pre-Diabetic)>6.5 ?Diabetes Indicated Lab Interpretation Abnormal (test code = 66821-1) [facility] (A[facility]2020-07-31 15:47:37 Test Item Value Reference Range Interpretation Comments HGB A1C (test code = 10.7 % 4.0-6.0 H 4548-4) DAVE (test code = DAVE) %A1C (NGSP) Interpretation (ADA)4.8-5.6 ? ? Normal or (Non-Diabetic Range)5.7-6.4 ? ? Increased Risk (Pre-Diabetic)>6.5 ?Diabetes Indicated Lab Interpretation Abnormal (test code = 83247-1) [facility] [id number] 15:46:00 Test Item Value Reference Range Interpretation Comments POCT Glu (age>30days) (test code = 267 mg/dL 70-110 A 3342) Lab Interpretation (test code = Abnormal 99126-9) [facility] [id number] 15:46:00 Test Item Value Reference Range Interpretation Comments POCT Glu (age>30days) (test code = 267 mg/dL 70-110 A 3342) Lab Interpretation (test code = Abnormal 02874-4) [facility] GLUCOSE (AUTOMATED)2020-07-31 13:59:15 Test Item Value Reference Range Interpretation Comments POCT GLU (test code = 7086263750) 318 mg/dL 70-110 H Lab Interpretation (test code = Abnormal 89509-8) [facility] GLUCOSE (AUTOMATED)2020-07-31 13:59:15 Test Item Value Reference Range Interpretation Comments POCT GLU (test code = 3076212321) 318 mg/dL 70-110 H Lab Interpretation (test code = Abnormal 80613-5) [facility] GLUCOSE (AUTOMATED)2020-07-31 13:15:31 Test Item Value Reference Range Interpretation Comments POCT GLU (test code = 9378694203) 324 mg/dL 70-110 H Lab Interpretation (test code = Abnormal 39608-2) [facility] GLUCOSE (AUTOMATED)2020-07-31 13:15:31 Test Item Value Reference Range Interpretation Comments POCT GLU (test code = 7007809166) 324 mg/dL 70-110 H Lab Interpretation (test code = Abnormal 20858-4) [facility] with [id number] 09:40:45 Test Item Value Reference Range Interpretation Comments WBC (test code = See_Comment H [Automated 6690-2) message] The sy stem which generated this result transmitted reference range : 4.30 - 11.10 10*3/?L. The reference range was not used to interpret this result as normal/abnormal . RBC (test code = See_Comment L [Automated 789-8) message] The sy stem which generated this result transmitted reference range : 3.93 - 5.25 10*6/?L. The reference range was not used to interpret this result as normal/abnormal . HGB (test code = 9.6 g/dL 11.6-15.0 L 718-7) HCT (test code = 29.2 % 35.7-45.2 L 4544-3) MCV (test code = 84.4 fL 80.6-95.5 787-2) MCH (test code = 27.7 pg 25.9-32.8 785-6) MCHC (test code = 32.9 g/dL 31.6-35.1 786-4) RDW-SD (test code = 41.4 fL 39.0-49.9 28666-6) RDW-CV (test code = 13.6 % 12.0-15.5 788-0) PLT (test code = See_Comment H [Automated 777-3) message] The sy stem which generated this result transmitted reference range : 166 - 358 10*3/ ?L. The reference r chester was not used to interpret this result as normal/abnormal . MPV (test code = 9.9 fL 9.5-12.9 54816-2) NRBC/100 WBC (test See_Comment [Automat ed code = 3419594894) message] The system which generated this result transmitted reference range : 0.0 - 10.0 /100 WBCs. The refer ence range was not u sed to interpret th is result as normal/abnormal . NRBC x10^3 (test code <0.01 See_Comment [Auto mated = 8533055820) message] The s ystem which generated this result transmitted reference range : 10*3/?L. The reference range was not used to interpret this result as normal/abnormal . GRAN MAT (NEUT) % 68.8 % (test code = 770-8) IMM GRAN % (test code 0.30 % = 8832410582) LYMPH % (test code = 23.0 % 736-9) MONO % (test code = 5.8 % 5905-5) EOS % (test code = 1.9 % 713-8) BASO % (test code = 0.2 % 706-2) GRAN MAT x10^3(ANC) 7.65 10*3/uL 1.88-7.09 H (test code = 2047725361) IMM GRAN x10^3 (test 0.03 10*3/uL 0.00-0.06 code = 3934152249) LYMPH x10^3 (test code 2.56 10*3/uL 1.32-3.29 = 731-0) MONO x10^3 (test code 0.65 10*3/uL 0.33-0.92 = 742-7) EOS x10^3 (test code = 0.21 10*3/uL 0.03-0.39 711-2) BASO x10^3 (test code <0.03 0.01-0.07 = 704-7) Lab Interpretation Abnormal (test code = 55331-3) [facility] with [id number] 09:40:45 Test Item Value Reference Range Interpretation Comments WBC (test code = See_Comment H [Automated 6690-2) message] The sy stem which generated this result transmitted reference range : 4.30 - 11.10 10*3/?L. The reference range was not used to interpret this result as normal/abnormal . RBC (test code = See_Comment L [Automated 789-8) message] The sy stem which generated this result transmitted reference range : 3.93 - 5.25 10*6/?L. The reference range was not used to interpret this result as normal/abnormal . HGB (test code = 9.6 g/dL 11.6-15.0 L 718-7) HCT (test code = 29.2 % 35.7-45.2 L 4544-3) MCV (test code = 84.4 fL 80.6-95.5 787-2) MCH (test code = 27.7 pg 25.9-32.8 785-6) MCHC (test code = 32.9 g/dL 31.6-35.1 786-4) RDW-SD (test code = 41.4 fL 39.0-49.9 02330-6) RDW-CV (test code = 13.6 % 12.0-15.5 788-0) PLT (test code = See_Comment H [Automated 777-3) message] The sy stem which generated this result transmitted reference range : 166 - 358 10*3/ ?L. The reference r chester was not used to interpret this result as normal/abnormal . MPV (test code = 9.9 fL 9.5-12.9 52548-4) NRBC/100 WBC (test See_Comment [Automat ed code = 8440426358) message] The system which generated this result transmitted reference range : 0.0 - 10.0 /100 WBCs. The refer ence range was not u sed to interpret th is result as normal/abnormal . NRBC x10^3 (test code <0.01 See_Comment [Auto mated = 5539579432) message] The s ystem which generated this result transmitted reference range : 10*3/?L. The reference range was not used to interpret this result as normal/abnormal . GRAN MAT (NEUT) % 68.8 % (test code = 770-8) IMM GRAN % (test code 0.30 % = 2295115879) LYMPH % (test code = 23.0 % 736-9) MONO % (test code = 5.8 % 5905-5) EOS % (test code = 1.9 % 713-8) BASO % (test code = 0.2 % 706-2) GRAN MAT x10^3(ANC) 7.65 10*3/uL 1.88-7.09 H (test code = 7436041768) IMM GRAN x10^3 (test 0.03 10*3/uL 0.00-0.06 code = 3497996753) LYMPH x10^3 (test code 2.56 10*3/uL 1.32-3.29 = 731-0) MONO x10^3 (test code 0.65 10*3/uL 0.33-0.92 = 742-7) EOS x10^3 (test code = 0.21 10*3/uL 0.03-0.39 711-2) BASO x10^3 (test code <0.03 0.01-0.07 = 704-7) Lab Interpretation Abnormal (test code = 36324-8) [facility] GLUCOSE (AUTOMATED)2020-07-31 05:16:55 Test Item Value Reference Range Interpretation Comments POCT GLU (test code = 3873940173) 258 mg/dL 70-110 H Lab Interpretation (test code = Abnormal 10168-7) [facility] GLUCOSE (AUTOMATED)2020-07-31 05:16:55 Test Item Value Reference Range Interpretation Comments POCT GLU (test code = 9989156947) 258 mg/dL 70-110 H Lab Interpretation (test code = Abnormal 16914-8) [facility] GLUCOSE (AUTOMATED)2020-07-31 01:33:51 Test Item Value Reference Range Interpretation Comments POCT GLU (test code = 1236188245) 334 mg/dL 70-110 H Lab Interpretation (test code = Abnormal 11246-8) [facility] GLUCOSE (AUTOMATED)2020-07-31 01:33:51 Test Item Value Reference Range Interpretation Comments POCT GLU (test code = 5261827239) 334 mg/dL 70-110 H Lab Interpretation (test code = Abnormal 62737-7) [facility] Test Item Value Reference Range Interpretation Comments APPEARANCE (test code = Clear Clear 6865084950) COLOR (test code = Straw Yellow A 4603844282) PH (test code = 4.8-8.0 0181865645) SP GRAVITY (test code = 1.003-1.030 9057558754) GLU U QUAL (test code = 150 mg/dL Normal A 0835658088) BLOOD (test code = 3+ Negative A 6532100795) KETONES (test code = Negative Negative 8780800833) PROTEIN (test code = Negative Negative 2887-8) UROBILIN (test code = Normal Normal 4830342123) BILIRUBIN (test code = Negative Negative 9959004243) NITRITE (test code = Negative Negative 5222639992) LEUK KULWINDER (test code = Negative Negative 7280664190) RBC/HPF (test code = See_Comment [Autom ated message] 6802987206) The system [employer] generated this result transmit shadia reference range : 0 - 3 HPF. The refe rence range was not u sed to interpret th is result as normal/abnormal . WBC/HPF (test code = See_Comment [Autom ated message] 1415786606) The system [employer] generated this result transmit shadia reference range : 0 - 5 HPF. The refe rence range was not u sed to interpret th is result as normal/abnormal . BACTERIA (test code = Few Negative A 6850540555) SQ EPITH (test code = HPF 9997192813) Lab Interpretation (test Abnormal code = 75682-5) [facility] Test Item Value Reference Range Interpretation Comments APPEARANCE (test code = Clear Clear 0056194588) COLOR (test code = Straw Yellow A 2139903167) PH (test code = 4.8-8.0 3183418504) SP GRAVITY (test code = 1.003-1.030 7854766594) GLU U QUAL (test code = 150 mg/dL Normal A 9693429874) BLOOD (test code = 3+ Negative A 3497172819) KETONES (test code = Negative Negative 7439784571) PROTEIN (test code = Negative Negative 2887-8) UROBILIN (test code = Normal Normal 0663558788) BILIRUBIN (test code = Negative Negative 0421362891) NITRITE (test code = Negative Negative 8917145911) LEUK KULWINDER (test code = Negative Negative 7650338796) RBC/HPF (test code = See_Comment [Autom ated message] 8008771306) The system [employer] generated this result transmit shadia reference range : 0 - 3 HPF. The refe rence range was not u sed to interpret th is result as normal/abnormal . WBC/HPF (test code = See_Comment [Autom ated message] 7898295655) The system [employer] generated this result transmit shadia reference range : 0 - 5 HPF. The refe rence range was not u sed to interpret th is result as normal/abnormal . BACTERIA (test code = Few Negative A 7354250913) SQ EPITH (test code = HPF 8918820660) Lab Interpretation (test Abnormal code = 12290-5) [facility] [id number] 18:46:00 Test Item Value Reference Range Interpretation Comments On board controls acceptable with present C Line (test code = 3574) POCT PREG LOT # (test code = 3575) [id number] POCT PREG TEST DATE (test 2022-03-31 code = 3576) POCT PREG (test code = 1605) negative Lab Interpretation (test code = Normal 72306-9) [facility] [id number] 18:46:00 Test Item Value Reference Range Interpretation Comments On board controls acceptable with present C Line (test code = 3574) POCT PREG LOT # (test code = 3575) [id number] POCT PREG TEST DATE (test 2022-03-31 code = 3576) POCT PREG (test code = 1605) negative Lab Interpretation (test code = Normal 28794-4) [facility] NOW RAPID TESTING[facility]2020-07-30 18:12:44 Test Item Value Reference Range Interpretation Comments SARS-CoV-2 Rapid ID NOW Not Detected Not Detected (test code = 01137-3) DAVE (test code = DAVE) ID NOW COVID-19 Assay is an isothermal nucleic acid amplification test intended for the qualitative detection of nucleic acid from SARS-CoV-2 viral RNA in nasopharyngeal (IRRIGATING PUMP OPERATOR) specimens. It is used under Emergency Use Authorization (EUA) by FDA. The limit of detection (LOD) of the assay is 125 Genome Equivalents/mL. A positive result is indicative of the presence of SARS-CoV-2 RNA. ?Clinical correlation with patient history and other diagnostic information is necessary to determine patient infection status. A negative (Not Detected) result does not preclude SARS-CoV-2 infection. In patients with clinical symptoms and other tests that are consistent with SARS-CoV-2 infection, negative results should be treated as presumptive negative and a new specimen should be tested with alternative PCR molecular test. Invalid: Please collect a new specimen for repeat patient testing if clinically indicated. Lab Interpretation Normal (test code = 57180-4) [facility]ID [facility]2020-07-30 18:12:44 Test Item Value Reference Range Interpretation Comments SARS-CoV-2 Rapid ID NOW Not Detected Not Detected (test code = 34689-0) DAVE (test code = DAVE) ID NOW COVID-19 Assay is an isothermal nucleic acid amplification test intended for the qualitative detection of nucleic acid from SARS-CoV-2 viral RNA in nasopharyngeal (IRRIGATING PUMP OPERATOR) specimens. It is used under Emergency Use Authorization (EUA) by FDA. The limit of detection (LOD) of the assay is 125 Genome Equivalents/mL. A positive result is indicative of the presence of SARS-CoV-2 RNA. ?Clinical correlation with patient history and other diagnostic information is necessary to determine patient infection status. A negative (Not Detected) result does not preclude SARS-CoV-2 infection. In patients with clinical symptoms and other tests that are consistent with SARS-CoV-2 infection, negative results should be treated as presumptive negative and a new specimen should be tested with alternative PCR molecular test. Invalid: Please collect a new specimen for repeat patient testing if clinically indicated. Lab Interpretation Normal (test code = 13618-5) [facility]09[facility]03 Test Item Value Reference Range Interpretation Comments MAGNESIUM (test code = 3061004939) 2.0 mg/dL 1.7-2.4 Lab Interpretation (test code = Normal 57120-8) [facility] Test Item Value Reference Range Interpretation Comments MAGNESIUM (test code = 4401147517) 2.0 mg/dL 1.7-2.4 Lab Interpretation (test code = Normal 99286-4) [facility]. METABOLIC PANEL (94105)2020-07-30 18:08:43 Test Item Value Reference Range Interpretation Comments NA (test code = 136 mmol/L 135-145 9951204375) K (test code = 4.0 mmol/L 3.5-5.0 7419776788) CL (test code = 101 mmol/L 98-108 0518774878) CO2 TOTAL (test code = 29 mmol/L 23-31 7037004934) AGAP (test code = 2-16 7718779001) BUN (test code = 12 mg/dL 7-23 0664885625) GLUCOSE (test code = 292 mg/dL 70-110 H 9291940042) CREATININE (test code = 0.54 mg/dL 0.50-1.04 2187560539) TOTAL BILI (test code = 0.4 mg/dL 0.1-1.5 0317671612) CALCIUM (test code = 8.8 mg/dL 8.6-10.6 7140025820) T PROTEIN (test code = 8.7 g/dL 6.3-8.2 H 9683617827) ALBUMIN (test code = 4.2 g/dL 3.5-5.0 3987471213) ALK PHOS (test code = 120 U/L 34-122 7950377852) ALTv (test code = 14 U/L 5-35 1742-6) AST(SGOT) (test code = 19 U/L 13-40 6493898533) eGFR (test code = mL/min/1.73m2 8815195059) eGFR Calculation mL/min/1.73m2 () (test code = 4728775224) DAVE (test code = DAVE) Association of Glomerular Filtration Rate (GFR) and Staging of Kidney Disease* + --+ --+ ------+| GFR (mL/min/1.73 m2) ?| With Kidney Damage ?| ?Without Kidney Damage+ --------+ --------+ +| ?>90 ?| ?Stage one ?| ? Normal ?+ ---+ ---+ -------+| ?60-89 ?| ?Stage two ?| ? Decreased GFR ? + --+ --+ ------+| ?30-59 ?| ?Stage three ?| ? Stage three ? + --+ --+ ------+| ?15-29 ?| ?Stage four ? | ? Stage four ?+ ---+ ---+ -------+| ?<15 (or dialysis) ? ?| ?Stage five ? | ? Stage five ?+ ---+ ---+ -------+ *Each stage assumes the associated GFR level has been in effect for at least three months. ?Stages 1 to 5, with or without kidney disease, indicate chronic kidney disease. Notes: Determination of stages one and two (with eGFR >59mL/min/1.73 m2) requires estimation of kidney damage for at least three months as defined by structural or functional abnormalities of the kidney, manifested by either:Pathological abnormalities or Markers of kidney damage (including abnormalities in the composition of the blood or urine or abnormalities in imaging tests). Lab Interpretation Abnormal (test code = 13366-4) [facility]. METABOLIC PANEL (05424)2020-07-30 18:08:43 Test Item Value Reference Range Interpretation Comments NA (test code = 136 mmol/L 135-145 9155169585) K (test code = 4.0 mmol/L 3.5-5.0 1503165596) CL (test code = 101 mmol/L 98-108 0358209725) CO2 TOTAL (test code = 29 mmol/L 23-31 9411150501) AGAP (test code = 2-16 9784973626) BUN (test code = 12 mg/dL 7-23 8399108524) GLUCOSE (test code = 292 mg/dL 70-110 H 9511322430) CREATININE (test code = 0.54 mg/dL 0.50-1.04 1481964195) TOTAL BILI (test code = 0.4 mg/dL 0.1-1.7 7468343033) CALCIUM (test code = 8.8 mg/dL 8.6-10.6 2355831813) T PROTEIN (test code = 8.7 g/dL 6.3-8.2 H 2849401349) ALBUMIN (test code = 4.2 g/dL 3.5-5.0 2321521758) ALK PHOS (test code = 120 U/L 34-122 8256127882) ALTv (test code = 14 U/L 5-35 1742-6) AST(SGOT) (test code = 19 U/L 13-40 5184554212) eGFR (test code = mL/min/1.73m2 4265122501) eGFR Calculation mL/min/1.73m2 () (test code = 3816300807) DAVE (test code = DAVE) Association of Glomerular Filtration Rate (GFR) and Staging of Kidney Disease* + --+ --+ ------+| GFR (mL/min/1.73 m2) ?| With Kidney Damage ?| ?Without Kidney Damage+ --------+ --------+ +| ?>90 ?| ?Stage one ?| ? Normal ?+ ---+ ---+ -------+| ?60-89 ?| ?Stage two ?| ? Decreased GFR ? + --+ --+ ------+| ?30-59 ?| ?Stage three ?| ? Stage three ? + --+ --+ ------+| ?15-29 ?| ?Stage four ? | ? Stage four ?+ ---+ ---+ -------+| ?<15 (or dialysis) ? ?| ?Stage five ? | ? Stage five ?+ ---+ ---+ -------+ *Each stage assumes the associated GFR level has been in effect for at least three months. ?Stages 1 to 5, with or without kidney disease, indicate chronic kidney disease. Notes: Determination of stages one and two (with eGFR >59mL/min/1.73 m2) requires estimation of kidney damage for at least three months as defined by structural or functional abnormalities of the kidney, manifested by either:Pathological abnormalities or Markers of kidney damage (including abnormalities in the composition of the blood or urine or abnormalities in imaging tests). Lab Interpretation Abnormal (test code = 56894-5) [facility] WITH [id number] 17:55:41 Test Item Value Reference Range Interpretation Comments WBC (test code = See_Comment [Automated 0954-2) message] The sy stem which generated this result transmitted reference range : 4.30 - 11.10 10*3/?L. The reference range was not used to interpret this result as normal/abnormal . RBC (test code = See_Comment L [Automated 109-8) message] The sy stem which generated this result transmitted reference range : 3.93 - 5.25 10*6/?L. The reference range was not used to interpret this result as normal/abnormal . HGB (test code = 10.2 g/dL 11.6-15.0 L 718-7) HCT (test code = 31.2 % 35.7-45.2 L 4544-3) MCV (test code = 83.0 fL 80.6-95.5 787-2) MCH (test code = 27.1 pg 25.9-32.8 785-6) MCHC (test code = 32.7 g/dL 31.6-35.1 786-4) RDW-SD (test code = 40.4 fL 39.0-49.9 85792-3) RDW-CV (test code = 13.3 % 12.0-15.5 788-0) PLT (test code = See_Comment H [Automated 777-3) message] The sy stem which generated this result transmitted reference range : 166 - 358 10*3/ ?L. The reference r chester was not used to interpret this result as normal/abnormal . MPV (test code = 9.7 fL 9.5-12.9 09209-8) NRBC/100 WBC (test See_Comment [Automat ed code = 4198265491) message] The system which generated this result transmitted reference range : 0.0 - 10.0 /100 WBCs. The refer ence range was not u sed to interpret th is result as normal/abnormal . NRBC x10^3 (test code <0.01 See_Comment [Auto mated = 8293212518) message] The s ystem which generated this result transmitted reference range : 10*3/?L. The reference range was not used to interpret this result as normal/abnormal . GRAN MAT (NEUT) % 73.4 % (test code = 770-8) IMM GRAN % (test code 0.50 % = 5970961927) LYMPH % (test code = 18.8 % 736-9) MONO % (test code = 5.1 % 5905-5) EOS % (test code = 1.8 % 713-8) BASO % (test code = 0.4 % 706-2) GRAN MAT x10^3(ANC) 7.94 10*3/uL 1.88-7.09 H (test code = 1555540345) IMM GRAN x10^3 (test 0.05 10*3/uL 0.00-0.06 code = 2623152831) LYMPH x10^3 (test code 2.03 10*3/uL 1.32-3.29 = 731-0) MONO x10^3 (test code 0.55 10*3/uL 0.33-0.92 = 742-7) EOS x10^3 (test code = 0.19 10*3/uL 0.03-0.39 711-2) BASO x10^3 (test code 0.04 10*3/uL 0.01-0.07 = 704-7) Lab Interpretation Abnormal (test code = 49556-3) [facility] WITH [id number] 17:55:41 Test Item Value Reference Range Interpretation Comments WBC (test code = See_Comment [Automated 9490-2) message] The sy stem which generated this result transmitted reference range : 4.30 - 11.10 10*3/?L. The reference range was not used to interpret this result as normal/abnormal . RBC (test code = See_Comment L [Automated 359-8) message] The sy stem which generated this result transmitted reference range : 3.93 - 5.25 10*6/?L. The reference range was not used to interpret this result as normal/abnormal . HGB (test code = 10.2 g/dL 11.6-15.0 L 718-7) HCT (test code = 31.2 % 35.7-45.2 L 4544-3) MCV (test code = 83.0 fL 80.6-95.5 787-2) MCH (test code = 27.1 pg 25.9-32.8 785-6) MCHC (test code = 32.7 g/dL 31.6-35.1 786-4) RDW-SD (test code = 40.4 fL 39.0-49.9 59043-3) RDW-CV (test code = 13.3 % 12.0-15.5 788-0) PLT (test code = See_Comment H [Automated 777-3) message] The sy stem which generated this result transmitted reference range : 166 - 358 10*3/ ?L. The reference r chester was not used to interpret this result as normal/abnormal . MPV (test code = 9.7 fL 9.5-12.9 61302-8) NRBC/100 WBC (test See_Comment [Automat ed code = 5769342052) message] The system which generated this result transmitted reference range : 0.0 - 10.0 /100 WBCs. The refer ence range was not u sed to interpret th is result as normal/abnormal . NRBC x10^3 (test code <0.01 See_Comment [Auto mated = 2820319200) message] The s ystem which generated this result transmitted reference range : 10*3/?L. The reference range was not used to interpret this result as normal/abnormal . GRAN MAT (NEUT) % 73.4 % (test code = 770-8) IMM GRAN % (test code 0.50 % = 0549828824) LYMPH % (test code = 18.8 % 736-9) MONO % (test code = 5.1 % 5905-5) EOS % (test code = 1.8 % 713-8) BASO % (test code = 0.4 % 706-2) GRAN MAT x10^3(ANC) 7.94 10*3/uL 1.88-7.09 H (test code = 3970676328) IMM GRAN x10^3 (test 0.05 10*3/uL 0.00-0.06 code = 7877147852) LYMPH x10^3 (test code 2.03 10*3/uL 1.32-3.29 = 731-0) MONO x10^3 (test code 0.55 10*3/uL 0.33-0.92 = 742-7) EOS x10^3 (test code = 0.19 10*3/uL 0.03-0.39 711-2) BASO x10^3 (test code 0.04 10*3/uL 0.01-0.07 = 704-7) Lab Interpretation Abnormal (test code = 24522-6) [facility]"
[2022-05-05] MEDS ORDERED: dexAMETHasone 10 MG/ML VIAL ONE (14:26)
--- NOTE | 2022-05-05 14:40 | ER ---
Nurse's Notes [facility] Name: Sharlene Buchanan Age: 42 yrs Sex: Female : 1980 Arrival Date: 05/05/2022 Time: 14:06 Bed IW3 Private MD: Diagnosis: Acute tonsillitis, unspecified;Unspecified acute conjunctivitis, bilateral Presentation: 05/05 14:19 Chief complaint: Patient states: she started having bilateral red, itchy eyes with ap3 drainage Tuesday05/01/2022. Patient also reports itchy throat, but denies throat pain. Coronavirus screen: Client presents with at least one sign or symptom that may indicate coronavirus-19. Ebola Screen: No symptoms or risks identified at this time. Initial Sepsis Screen: Does the patient meet any 2 criteria? No. Patient's initial sepsis screen is negative. Does the patient have a suspected source of infection? No. Patient's initial sepsis screen is negative. Risk Assessment: Do you want to hurt yourself or someone else? Patient reports no desire to harm self or others. Onset of symptoms was May 01, 2022. 14:19 Method Of Arrival: Ambulatory ap3 14:19 Acuity: BRITTNEY 4 ap3 Triage Assessment: 14:20 General: Appears uncomfortable, Behavior is calm, cooperative, appropriate for age. ap3 Pain: Complains of pain in right eye and left eye. EENT: Sclera/Cornea are reddened in outer aspect of conjuctiva of right eye, inner aspect of conjuctiva of right eye, outer aspect of conjuctiva of left eye and inner aspect of conjunctiva of left eye. Neuro: Level of Consciousness is awake, alert, obeys commands, Oriented to person, place, time. Cardiovascular: Patient's skin is warm and dry. Respiratory: Airway is patent Respiratory effort is even, unlabored, Respiratory pattern is regular, symmetrical. 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 Flu vaccine is not up to date. - Social history:: Smoking status: Patient denies any tobacco usage or history of. Screenin:21 [facility] ED Fall Risk Assessment (Adult) History of falling in the last 3 months, ap3 including since admission No falls in past 3 months (0 pts). Abuse screen: Denies threats or abuse. Nutritional screening: No deficits noted. Tuberculosis screening: No symptoms or risk factors identified. Assessment: 14:55 Reassessment: Patient is alert, oriented x 3, equal unlabored respirations, skin aa5 warm/dry/pink. Vital Signs: 14:19 BP 151 / 101; Pulse 89; Resp 18; Temp 98.1; Pulse Ox 100% ; Weight 144.24 kg; Height 5 ap3 ft. 3 in. (160.02 cm); 14:19 Body Mass Index 56.33 (144.24 kg, 160.02 cm) ap3 ED Course: 14:06 Patient arrived in ED. rg4 14:17 Kimberly Stephens FNP-C is [facility]. kb 14:17 Tru Egan MD is Attending Physician. kb 14:20 Triage completed. ap3 14:21 Arm band placed on right wrist. ap3 14:21 No provider procedures requiring assistance completed. Patient did not have IV access ap3 during this emergency room visit. 14:22 Patient has correct armband on for positive identification. ap3 Administered Medications: 14:30 Drug: Decadron (dexamethasone) 10 mg Route: IM; Site: right deltoid; ap3 14:55 Follow up: Response: No adverse reaction aa5 Medication: 14:22 VIS not applicable for this client. ap3 Outcome: 14:40 Discharge ordered by . kb 14:55 Discharged to home ambulatory. aa5 14:55 Condition: good 14:55 Discharge instructions given to patient, Instructed on discharge instructions, follow up and referral plans. medication usage, Demonstrated understanding of instructions, follow-up care, medications, Prescriptions given X 2. 14:57 Patient left the ED. aa5 Signatures: Kimberly Stephens FNP-C FNP-Ckb Calderon, Audri RN RN aa5 Bonnie Grimaldo rg4 Nataliya Gautam RN RN ap3
--- NOTE | 2022-05-05 14:40 | EDPHYS ---
Physician Documentation [facility] Name: Sharlene Buchanan Age: 42 yrs Sex: Female : 1980 Arrival Date: 05/05/2022 Time: 14:06 Bed IW3 Private MD: ED Physician Tru Egan HPI: 05/05 14:22 This 42 yrs old Female presents to ER via Ambulatory with complaints of kb Redness of Eye, Difficulty Swallowing. 14:23 The patient presents with sore throat. The patient describes throat pain as constant. kb Onset: The symptoms/episode began/occurred 5 day(s) ago. Severity of symptoms: At their worst the symptoms were moderate, in the emergency department the symptoms are unchanged. Modifying factors: The symptoms are alleviated by nothing, the symptoms are aggravated by swallowing. Associated signs and symptoms: Pertinent positives: Sore throat redness and discharge from eyes. The patient has not experienced similar symptoms in the past. The patient has not recently seen a physician. Pt reports redness and green discharge from both eyes that started on Tuesday. states it started in right eye and moved to left. Also reports sore throat. Sister has same symptoms. 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 Flu vaccine is not up to date. - Social history:: Smoking status: Patient denies any tobacco usage or history of. ROS: 14:21 Constitutional: Negative for fever, chills, and weight loss. kb 14:21 Eyes: Positive for discharge, matting, redness. 14:21 ENT: Positive for sore throat. 14:21 All other systems are negative. Exam: 14:21 Constitutional: This is a well developed, well nourished patient who is awake, alert, kb and in no acute distress. Head/Face: Normocephalic, atraumatic. Cardiovascular: Regular rate and rhythm with a normal S1 and S2. No gallops, murmurs, or rubs. No pulse deficits. Respiratory: Respirations even and unlabored. No increased work of breathing. Talking in full sentences Skin: Warm, dry with normal turgor. Normal color. MS/ Extremity: Pulses equal, no cyanosis. Neurovascular intact. Full, normal range of motion. Neuro: Awake and alert, GCS 15, oriented to person, place, time, and situation. Moves all extremities. Normal gait. 14:21 Eyes: Periorbital structures: appear normal, Extraocular movements: intact throughout, Conjunctiva: injected, bilaterally. 14:21 ENT: Posterior pharynx: Airway: normal, no evidence of obstruction, Tonsils: bilaterally enlarged, Uvula: normal, midline, swelling, that is moderate, erythema, that is mild, exudate, is not appreciated. Vital Signs: 14:19 BP 151 / 101; Pulse 89; Resp 18; Temp 98.1; Pulse Ox 100% ; Weight 144.24 kg; Height 5 ap3 ft. 3 in. (160.02 cm); 14:19 Body Mass Index 56.33 (144.24 kg, 160.02 cm) ap3 MDM: 14:17 Patient medically screened. kb 14:25 Data reviewed: vital signs, nurses notes. Data interpreted: Pulse oximetry: on room air kb is 100 %. Interpretation: normal. Counseling: I had a detailed discussion with the patient and/or guardian regarding: the historical points, exam findings, and any diagnostic results supporting the discharge/admit diagnosis, the need for outpatient follow up, a family practitioner, to return to the emergency department if symptoms worsen or persist or if there are any questions or concerns that arise at home. ED course: I considered the following discharge prescriptions or medication management in the emergency department: prescription analgesics considered, but will take OTC pain medication and use chloraseptic spray as needed; Diagnostic test considered but not performed: strep, flu and covid tests considered. Pt is outside of the treatment window for flu and covid and symptoms are more localized to throat. Strep test not performed because I am treating pt for tonsillitis with antibiotics that would treat strep as well; History obtained from: pt. 14:56 Differential diagnosis: Allergic rhinitis, group A strep tonsillitis, influenza, kb pharyngitis, tonsillitis. Administered Medications: 14:30 Drug: Decadron (dexamethasone) 10 mg Route: IM; Site: right deltoid; ap3 14:55 Follow up: Response: No adverse reaction aa5 Disposition Summary: 05/05/22 14:40 Discharge Ordered Location: Home kb Condition: Stable kb Diagnosis - Acute tonsillitis, unspecified kb - Unspecified acute conjunctivitis, bilateral kb Followup: kb - With: Emergency Department - When: As needed - Reason: Worsening of condition Followup: kb - With: Private Physician - When: 2 - 3 days - Reason: Recheck today's complaints, Continuance of care, Re-evaluation by your physician Discharge Instructions: - Discharge Summary Sheet kb - Tonsillitis, [id number] kb - Bacterial Conjunctivitis, Adult, [id number] kb Forms: - Medication Reconciliation Form kb - Thank You Letter kb - Antibiotic Education kb - Prescription Opioid Use kb - Work release form aa5 Prescriptions: - Amoxicillin 875 mg Oral Tablet - take 1 tablet by ORAL route every 12 hours for 10 days; 20 tablet; Refills: 0, kb Product Selection Permitted - Erythromycin 5 mg/gram (0.5 %) Ophthalmic Ointment - apply 1 centimeter by OPHTHALMIC route 3 times per day for 7 days; 1 tube; kb Refills: 0, Product Selection Permitted Signatures: Kimberly Stephens, DIRECTOR OF CAREER SERVICES-C DIRECTOR OF CAREER SERVICES-Nataliya Ruiz RN RN ap3 Sivan Pabon RN aa5
[2022-05-05 15:17] VITALS: BP 151/101; TEMP 98.1; O2SAT 100
== END 2022-05-05 14:57 | disposition home or self-care (01) ==
LOC: ER 14:02
DX: J03.90 Acute tonsillitis, unspecified (principal); H10.33 Unspecified acute conjunctivitis, bilateral
CPT/HCPCS: 96372; 99283; J1100

== ENCOUNTER 2024-02-13 09:56 | Emergency (ER) | payer OTHER ==
--- OUTSIDE RECORDS SUMMARY | 2024-02-13 10:03 | XMS REPORT | Continuity of Care Document ---
Author Name Unknown Address [address] [place] [address] [facility] thconnect Address [address] [facility] [address] [place] [address] Care Team Providers Care [employer] Cover[employer] Supervisor Name Role Phone Pcp, Patient Does Not Have A Primary Care Physic nubia Sharif Luong Attending Clinician [phone] Unknown, Attending Attending Clinician Unavailab SHARIF Alfaro Attending Clinician Unavailable [email or web address] Attending Clinician Unavaila DARIEL Appiah Attending Clinician Unavailab DARIEL Gomez Attending Clinician Unavailab MARIEL Sandy Attending Clinician Unavailable Mariel Sales MD Attending Clinician Doctor Unassigned, [place] Attending Clinician U JACKIE Calloway Attending Clinician Unavailable Rashi Rogel DO Attending Clinician [phone] Jackie Dye MD Attending Clinician [phone] MARIBEL NUÑEZ Attending Clinician Unavailable Blayne GUERRA, Maribel Diaz Attending Clinician [phone] Roselyn Brooks RN Attending Clinician Unav ROBERT Blank Attending Clinician UnavailApril Mendoza Attending Clinician [phone] Yohannes Denton DO Attending Clinician [phone] Verona Taylor MD Attending Clinician [phone] Provider, [facility] Attending Clinician Un available Melly Richards Attending Clinician [phone] MELLY FATIMA Attending Clinician Unavailable [email or web address] Admitting Clinician Unavaila MARIEL Jamison Admitting Clinician Unavailable JACKIE DYE Admitting Clinician Unavailable Jackie Dye MD Admitting Clinician [phone] Yohannes Denton DO Admitting Clinician [phone] Payers Payer Name Policy Type Policy Number Effective Date Expirati on Date Source Problems Condition Name Condition Details Condition Category Status Onset Date Resolution Date Last Treatment Date Treating Clinician Comments Source Right flank pain Right flank pain Disease Active 8-03 00:00: 00 [facility] Pyelonephr itis Pyelonephr itis Disease Active 8- 00:00: 00 [facility] Breast abscess Breast abscess Disease Active 07-30 00:00: 00 [facility] Morbid obesity with body mass index of 50 or higher Morbid obesity with body mass index of 50 or higher Disease Active 07-30 00:00: 00 [facility] No known active problems No known active problems Disease [facility] Allergies, Adverse Reactions, Alerts Allergy Name Allergy Type Status Severity Reaction(s) Onset Date Inactive Date Treating Clinician Comments Source NO KNOWN DRUG ALLERGIE S Drug Class Active 2-12 00:00: 00 [facility] No Known Drug Allergie s Propensi ty to adverse reaction s Active 06-13 00:00: 00 [facility] Social History Social Habit Start Date Stop Date Quantity Comments [facility] function 2024-01-10 00:00:00 2024-01-10 00:00:00 [facility] Exposure to SARS-CoV-2 (event) 2022-06-25 00:00:00 2022-07-05 18:26:00 Not sure [facility] Tobacco use and exposure 2020-07-30 00:00:00 2020-07-30 00:00:00 Smokeless tobacco non-user [facility] Education 2020-07-30 00:00:00 2020-07-30 00:00:00 13 [facility] Sex assigned at 1980 00:00:00 1980 00:00:00 [facility] Smoking Status Start Date Stop Date Source Never smoked tobacco [facility] Medications Ordered Medication Name Filled Medication Name Start Date Stop Date Current Medication? Ordering Clinician Indication Dosage Frequency Signature (SIG) Comments Components Source NaCl 0.9% (NS) IV infusion 1,000 mL 07-06 04:45: 00 Yes 1000mL at 999 mL/hr, Intravenou s, CONTINUOUS , Starting on Tue07/05/22 at 2245, Until Discontinu ed, Routine [facility] ketorolac (TORADOL) injection 30 mg 07-06 04:45: 00 07-06 03:56 :00 No 30mg 30 mg, Slow IV Push, ONCE, 1 dose, On Tue07/05/22 at 2245, Routine [facility] insulin regular human (HUMULIN R) injection 5 Units 07-06 04:30: 00 07-06 03:54 :00 No 5U 5 Units, Subcutaneo us, ONCE, 1 dose, On Tue07/05/22 at 2230, Routine
Indicatio n for insulin: Hyperglyce chucky [facility] cefTRIAXone (ROCEPHIN) 1,000 mg in NaCl 0.9% (NS) 100 mL MINI-BAG 07-06 04:30: 00 07-06 06:11 :00 No 1000mg 1,000 mg, IV Piggyback, ONCE, 1 dose, On Tue07/05/22 at 2230, Administer over 30 Minutes, 100 mL
Reas on for Anti-Infec tive: Documented Infection< br>Documen shadia Infection Site: Urine
D uration of Therapy: Other (see Comments) [facility] acetaminoph en (TYLENOL) tablet 1,000 mg 07-06 02:45: 00 07-06 02:06 :00 No 1000mg 1,000 mg, Oral, ONCE, 1 dose, On Tue07/05/22 at 204, Routine [facility] iopamidol (ISOVUE 370-500 mL) injection 80 mL 07-06 02:30: 00 07-06 02:45 :00 No [id number] 80mL 80 mL, Intravenou s, ONCE, 1 dose, On Tue07/05/22 at 204, Routine [facility] maalox:diph enhydrAMINE :lidocaine 2 % viscous 1:1:1 (FIRST-MOUT HWASH BLM) oral suspension 15 mL 07-06 01:30: 00 07-06 02:07 :00 No 15mL 15 mL, Oral, ONCE, 1 dose, On Tue07/05/22 at 1930, Routine [facility] dicyclomine 20 mg tablet 07-06 00:00: 00 Yes [id number] 20mg Take 1 tablet by mouth every 6 (six) hours as needed for Abdominal pain. [facility] ondansetron (ZOFRAN) 4 mg tablet 07-06 00:00: 00 Yes [id number] 4mg Take 1 tablet by mouth every 8 (eight) hours as needed for Nausea and Vomiting (N/V). [facility] traMADoL (ULTRAM) 50 mg tablet 07-06 00:00: 00 Yes [id number] 50mg Take 1 tablet by mouth every 6 (six) hours as needed for Pain (scale 7-10). Indication s: acute pain [facility] cefdinir 300 mg capsule 07-06 00:00: 00 Yes [id number] 300mg Take 1 capsule by mouth every 12 (twelve) hours. [facility] pantoprazol e (PROTONIX) 40 mg EC tablet 07-06 00:00: 00 Yes [id number] 40mg Take 1 tablet by mouth in the morning. [facility] morpHINE (2 mg/mL) injection 2 mg 12-04 02:04: 03 Yes 2mg 2 mg, Slow IV Push, Q4HPRN, Starting on Tue12/03/21 at 2104, Until Discontinu ed, Routine, Pain (scale 7-10) [facility] insulin NPH and regular human 70-30 100 unit/mL (70-30) injection 12-04 00:00: 00 Yes [id number] 25U inject 25 Units under the skin 2 (two) times daily before breakfast and dinner. [facility] atorvastati n 40 mg tablet 12-04 00:00: 00 01-04 04:59 :00 No [id number] 40mg Take 1 tablet by mouth at bedtime for 30 days. [facility] amoxicillin 500 mg tablet 12-04 00:00: 00 12-12 04:59 :00 No [id number] 500mg Take 1 tablet by mouth in the morning and 1 tablet at noon and 1 tablet in the evening. Do all this for 7 days. [facility] metroNIDAZO LE 500 mg tablet 12-04 00:00: 00 12-09 04:59 :00 No [id number] 500mg Take 1 tablet by mouth every 12 (twelve) hours for 4 days. [facility] insulin NPH and regular human 70-30 (70-30 U-100 INSULIN) 100 unit/mL (70-30) injection 25 Units 12-03 12:30: 00 Yes 25U 25 Units, Subcutaneo us, BIDAC, First dose (after last modificati on) on Shannan 12/03/21 at 0730, Until Discontinu ed, Routine [facility] ampicillin (POLYCILLIN -N) 2,000 mg in NaCl 0.9% (NS) 100 mL MINI-BAG 12-02 22:00: 00 Yes 2g 2,000 mg (2 g), IV Piggyback, Q6H ABX, First dose on Tue12/02/21 at 1700, Until Discontinu ed, Administer over 30 Minutes, 100 mL
Reas on for Anti-Infec tive: Documented Infection< br>Documen shadia Infection Site: Urine
D uration of Therapy: 7 days [facility] atorvastati n (LIPITOR) tablet 40 mg 12-02 02:00: 00 Yes 40mg 40 mg, Oral, QHS, First dose on Tue12/01/21 at 2100, Until Discontinu ed, Routine [facility] metroNIDAZO LE (FLAGYL) tablet 500 mg 12-02 01:00: 00 12-09 00:59 :00 No 500mg 500 mg, Oral, Q12H, 14 doses, First dose on Tue12/01/21 at 2000, Last dose on Tue12/08/21 at 0800, Routine
Reason for Anti-Infec tive: Documented Infection< br>Documen shadia Infection Site: Urine
D uration of Therapy: 7 days [facility] Sliding Scale Insulin - Lispro (HumaLOG) + Fsbg Testing 12-01 22:00: 00 Yes Subcutaneo us, TID MEALS+HS, First dose on Tue12/01/21 at 1700, Until Discontinu ed, Routine [facility] enoxaparin (LOVENOX) injection 40 mg 12-01 22:00: 00 Yes 40mg 40 mg, Subcutaneo us, DAILY, First dose on Tue12/01/21 at 1700, Until Discontinu ed, Routine [facility] insulin NPH and regular human 70-30 (70-30 U-100 INSULIN) 100 unit/mL (70-30) injection 20 Units 12-01 21:30: 00 2022- 08-04 04:37 :37 No 20U 20 Units, Subcutaneo us, BIDAC, First dose on Tue12/01/21 at 1630, Until Discontinu ed, Routine [facility] NaCl 0.9% (NS) IV infusion 1,000 mL 12-01 17:30: 00 Yes 1000mL at 125 mL/hr, IV Infusion, CONTINUOUS , Starting on Tue12/01/21 at 1230, Until Discontinu ed, Routine [facility] glucagon (GLUCAGEN DIAGNOSTIC KIT) injection 1 mg 12-01 17:12: 10 Yes 1mg 1 mg, Intramuscu lar, PRN, Starting on Tue12/01/21 at 1212, Until Discontinu ed, ALDO, Blood Glucose < or = 70 mg/dL and patient is unable to swallow or has mental changes. [facility] dextrose 50 % in water (D50W) injection 25 mL 12-01 17:12: 10 Yes 25mL 25 mL, Slow IV Push, PRN, Starting on Tue12/01/21 at 1212, Until Discontinu ed, ALDO, Blood Glucose < or = 70 mg/dL and patient is unable to swallow or has mental status changes. [facility] ondansetron (ZOFRAN (PF)) injection 4 mg 12-01 17:12: 00 Yes 4mg 4 mg, Slow IV Push, Q6HPRN, Starting on Tue12/01/21 at 1212, Until Discontinu ed, Routine, Nausea and Vomiting (N/V) [facility] acetaminoph en (TYLENOL) tablet 650 mg 12-01 17:11: 48 Yes 650mg 650 mg, Oral, Q6HPRN, Starting on Tue12/01/21 at 1211, Until Discontinu ed, Routine, Pain (scale 1-3), Temp > 38.5 C [facility] ketorolac (TORADOL) injection 15 mg 12-01 17:00: 00 12-02 04:26 :00 No 15mg 15 mg, Slow IV Push, Q6H, 4 doses, First dose on Tue12/01/21 at 1200, Last dose on Tue12/02/21 at 0600, Routine [facility] cefTRIAXone (ROCEPHIN) injection 1,000 mg 12-01 14:45: 00 12-02 20:56 :24 No 1000mg 1,000 mg, Slow IV Push, Q24H ABX, First dose on Tue12/01/21 at 0945, Until Discontinu ed, ALDO
Re ason for Anti-Infec tive: Empiric Therapy for Suspected Infection< br>Empiric Therapy Site: Pelvic
Duration of therapy: 72 hours [facility] NaCl 0.9% (NS) bolus infusion 1,000 mL 12-01 13:15: 00 12-01 16:26 :00 No 1000mL at 999 mL/hr, 1,000 mL, IV Piggyback, ONCE, 1 dose, On Tue12/01/21 at 0815, STAT [facility] ondansetron (ZOFRAN (PF)) injection 4 mg 12-01 12:15: 00 12-01 12:39 :00 No 4mg 4 mg, Slow IV Push, ONCE, 1 dose, On Tue12/01/21 at 0715, Routine [facility] valACYclovi r 1 gram tablet 07-21 00:00: 00 Yes [id number] 1g Take 1 tablet by mouth 3 (three) times daily. [facility] predniSONE 20 mg tablet 07-21 00:00: 00 07-29 04:59 :00 No [id number] 60mg Take 3 tablets by mouth every morning for 7 days. [facility] glipiZIDE (GLUCOTROL) tablet 2.5 mg 08-04 14:00: 00 Yes 2.5mg 2.5 mg, Oral, DAILY, First dose on Tue08/04/20 at 0900, Until Discontinu ed, Routine [facility] glipiZIDE 5 mg tablet 08-04 00:00: 00 09-04 04:59 :00 No [id number] 2.5mg Take 0.5 tablets by mouth daily for 30 days. [facility] metFORMIN (GLUCOPHAGE ) tablet 1,000 mg 08-03 13:00: 00 Yes 1000mg 1,000 mg, Oral, BID MEALS, First dose (after last modificati on) on Tue08/03/20 at 0800, Until Discontinu ed, Routine [facility] metFORMIN 1,000 mg tablet 08-03 00:00: 00 09-03 04:59 :00 No [id number] 1000mg Take 1 tablet by mouth 2 (two) times daily with meals for 30 days. [facility] ciprofloxac in HCl 500 mg tablet 08-03 00:00: 00 08-11 04:59 :00 No [id number] 500mg Take 1 tablet by mouth every 12 (twelve) hours for 7 days. [facility] ciprofloxac in in 5 % dextrose (CIPRO) piggyback 400 mg 08-02 14:00: 00 Yes 400mg 400 mg, IV Piggyback, Administer over 60 Minutes, Q12H ABX, First dose on Tue08/02/20 at 0900, Until Discontinu ed, ALDO
Re ason for Anti-Infec tive: Documented Infection< br>Documen shadia Infection Site: Skin / Soft Tissue
Duration of Therapy: 7 days [facility] Sliding Scale Insulin - Lispro (HumaLOG) + Fsbg Testing 08-01 22:00: 00 Yes Subcutaneo us, TID MEALS+HS, First dose on Tue08/01/20 at 1700, Until Discontinu ed, Routine [facility] glucagon (GLUCAGEN DIAGNOSTIC KIT) injection 1 mg 08-01 21:02: 13 Yes 1mg 1 mg, Intramuscu lar, PRN, Starting Tue08/01/20 at 1602, Until Discontinu ed, ALDO, Blood Glucose < or = 70 mg/dL and patient is unable to swallow or has mental changes. [facility] dextrose 50 % in water (D50W) injection 25 mL 08-01 21:02: 13 Yes 25mL 25 mL, Slow IV Push, PRN, Starting Tue08/01/20 at 1602, Until Discontinu ed, ALDO, Blood Glucose < or = 70 mg/dL and patient is unable to swallow or has mental status changes. [facility] morpHINE injection 2 mg 08-01 17:00: 00 08-01 16:29 :00 No 2mg 2 mg, Slow IV Push, ONCE, 1 dose, Tue08/01/20 at 1200, Routine [facility] metFORMIN (GLUCOPHAGE ) tablet 500 mg 07-31 22:00: 00 08-02 22:03 :02 No 500mg 500 mg, Oral, BID MEALS, First dose on Tue07/31/20 at 1700, Until Discontinu ed, Routine [facility] acetaminoph en (TYLENOL) tablet 500 mg 07-31 21:00: 00 Yes 500mg 500 mg, Oral, Q6H ABX, First dose (after last modificati on) on Tue07/31/20 at 1600, Until Discontinu ed, Routine [facility] ibuprofen (IBU) tablet 600 mg 07-31 20:00: 00 Yes 600mg 600 mg, Oral, Q6H ABX, First dose on Tue07/31/20 at 1500, Until Discontinu ed, Routine [facility] piperacilli n-tazobacta m (ZOSYN) 3.375 g in NaCl 0.9% (NS) 100 mL MINI-BAG 07-31 19:15: 00 08-02 13:21 :09 No 3.375g 3.375 g, IV Piggyback, Q6H ABX, First dose on Tue07/31/20 at 1415, Until Discontinu ed, 100 mL
Reas on for Anti-Infec tive: Documented Infection< br>Documen shadia Infection Site: Skin / Soft Tissue
Duration of Therapy: 7 days [facility] HYDROcodone -acetaminop hen (NORCO 5) 5-325 mg tablet 1 tablet 07-31 18:15: 21 Yes 1{tbl} 1 tablet, Oral, Q4HPRN, Starting Shannan 07/31/20 at 1315, Until Discontinu ed, Routine, Pain (scale 7-10) [facility] lactated ringers IV infusion 1,000 mL 07-31 18:15: 00 07-31 21:45 :26 No 1000mL at 75 mL/hr, 1,000 mL, IV Infusion, CONTINUOUS , Starting Shannan 07/31/20 at 1315, Until Shannan 07/31/20 at 1645, Routine, PACU [facility] ondansetron (ZOFRAN (PF)) injection 4 mg 07-31 18:01: 06 07-31 18:31 :00 No 4mg 4 mg, Slow IV Push, PRN, 1 dose, Starting Shannan 07/31/20 at 1301, Until Shannan 07/31/20 at 1331, Routine, Nausea and Vomiting (N/V), PACU [facility] povidone-io dine (BETADINE) 10 % solution 07-31 17:36: 00 07-31 19:46 :50 No PRN, Starting Shannan 07/31/20 at 1236, Until Shannan 07/31/20 at 1446, Routine, Intra-op [facility] sodium chloride 0.9 % irrigation solution 07-31 17:23: 00 07-31 19:46 :50 No PRN, Starting Shannan 07/31/20 at 1223, Until Shannan 07/31/20 at 1446, Intra-op [facility] docusate (COLACE) capsule 100 mg 07-31 14:00: 00 Yes 100mg 100 mg, Oral, DAILY, First dose on Tue07/31/20 at 0900, Until Discontinu ed, Routine [facility] Sliding Scale Insulin - Lispro (HumaLOG) + Fsbg Testing 07-31 13:00: 00 08-01 21:02 :04 No Subcutaneo us, TID MEALS+HS, First dose on Tue07/31/20 at 0800, Until Discontinu ed, Routine [facility] ampicillin- sulbactam (UNASYN) 3 g in NaCl 0.9% (NS) 100 mL MINI-BAG 07-30 23:00: 00 07-31 18:15 :56 No 3g 3 g, IV Piggyback, Q6H ABX, First dose on Tue07/30/20 at 1800, Until Discontinu ed, 100 mL
Reas on for Anti-Infec tive: Empiric Therapy for Suspected Infection< br>Empiric Therapy Site: Skin / Soft tissue
Duration of therapy: 7 days [facility] vancomycin 1500 mg in NS 500 mL IV Piggyback RTU 1,500 mg 07-30 22:45: 00 07-31 18:15 :56 No 15mg/kg 1,500 mg (rounded from 2,280 mg = 15 mg/kg ?152 kg), IV Piggyback, Q8H ABX, First dose (after last modificati on) on Tue07/30/20 at 1745, Until Discontinu ed
Reas on for Anti-Infec tive: Empiric Therapy for Suspected Infection< br>Empiric Therapy Site: Skin / Soft tissue
Duration of therapy: 7 days [facility] enoxaparin (LOVENOX) injection 40 mg 07-30 22:00: 00 Yes 40mg 40 mg, Subcutaneo us, DAILY, First dose on Tue07/30/20 at 1700, Until Discontinu ed, Routine [facility] lactated ringers IV infusion 1,000 mL 07-30 22:00: 00 07-31 18:15 :56 No 1000mL at 50 mL/hr, 1,000 mL, IV Infusion, CONTINUOUS , Starting Tue07/30/20 at 1700, Until Shannan 07/31/20 at 1315, Routine [facility] ondansetron (ZOFRAN (PF)) injection 4 mg 07-30 21:52: 49 Yes 4mg 4 mg, Slow IV Push, Q6HPRN, Starting Tue07/30/20 at 1652, Until Discontinu ed, Routine, Nausea and Vomiting (N/V) [facility] morpHINE injection 4 mg 07-30 21:52: 40 07-31 18:15 :57 No 4mg 4 mg, Slow IV Push, Q3HPRN, Starting Tue07/30/20 at 1652, Until Shannan 07/31/20 at 1315, Routine, Pain (scale 7-10) [facility] acetaminoph en-codeine (TYLENOL #3) 300-30 mg tablet 1 tablet 07-30 21:52: 34 07-31 18:15 :56 No 1{tbl} 1 tablet, Oral, Q6HPRN, Starting Tue07/30/20 at 1652, Until Shannan 07/31/20 at 1315, Routine, Pain (scale 4-6) [facility] piperacilli n-tazobacta m (ZOSYN) 3.375 g in NaCl 0.9% (NS) 100 mL MINI-BAG 07-30 20:30: 00 07-30 20:10 :00 No 3.375g 3.375 g, IV Piggyback, ONCE, 1 dose, Tue07/30/20 at 1530, 100 mL
Reas on for Anti-Infec tive: Documented Infection< br>Documen shadia Infection Site: Skin / Soft Tissue
Duration of Therapy: 7 days [facility] HYDROcodone -acetaminop hen (NORCO) 10-325 mg tablet 1 tablet 07-30 19:45: 00 07-30 18:52 :00 No 1{tbl} 1 tablet, Oral, ONCE, 1 dose, Tue07/30/20 at 1445, Routine [facility] VIT-IRON FUMARATE-FA 60-1 MG ORAL TAB 06-16 00:00: 00 Yes Take one tablet by mouth daily [facility] DOCUSATE CALCIUM 240 MG ORAL CAP 06-16 00:00: 00 Yes Take one capsule by mouth daily as needed for constipati on [facility] FERROUS SULFATE 300 (60) MG ORAL TAB 06-16 00:00: 00 Yes Take one tablet by mouth twice daily [facility] IBUPROFEN 600 MG ORAL TAB 06-16 00:00: 00 Yes Take one tablet by mouth every six hours as needed for pain [facility] VIT-IRON FUMARATE-FA 60-1 MG ORAL TAB 06-16 00:00: 00 Yes Take one tablet by mouth daily [facility] HYDROCODONE -ACETAMINOP HEN 5-325 MG ORAL TAB 06-16 00:00: 00 08-03 00:00 :00 No Take one tablet by mouth every six hours as needed for pain [facility] Vital Signs Vital Name Observation Time Observation Value Comments S ource Systolic blood pressure 2024-01-10 23:39:00 166 mm[Hg] [facility] Diastolic blood pressure 2024-01-10 23:39:00 100 mm[Hg] [facility] Heart rate 2024-01-10 23:38:00 83 /min [facility] Body temperature 2024-01-10 23:38:00 36.5 Loan [facility] Respiratory rate 2024-01-10 23:38:00 20 /min [facility] Body height 2024-01-10 23:38:00 157.5 cm [facility] Body weight 2024-01-10 23:38:00 164.021 kg [facility] BMI 2024-01-10 23:38:00 66.14 kg/m2 [facility] Oxygen saturation in Arterial blood by Pulse oximetry 2024-01-10 23:38:00 100 /min [facility] Systolic blood pressure 2022-07-06 07:19:00 139 mm[Hg] [facility] Diastolic blood pressure 2022-07-06 07:19:00 81 mm[Hg] [facility] Body temperature 2022-07-06 07:19:00 36.44 Loan [facility] Oxygen saturation in Arterial blood by Pulse oximetry 2022-07-06 07:19:00 98 /min [facility] Heart rate 2022-07-06 06:13:00 95 /min [facility] Respiratory rate 2022-07-06 06:13:00 20 /min [facility] Body weight 2022-07-06 00:27:00 144.244 kg [facility] BMI 2022-07-06 00:27:00 56.33 kg/m2 [facility] Systolic blood pressure 2021-12-04 16:52:00 146 mm[Hg] [facility] Diastolic blood pressure 2021-12-04 16:52:00 90 mm[Hg] [facility] Heart rate 2021-12-04 16:52:00 85 /min [facility] Body temperature 2021-12-04 16:52:00 36.33 Loan [facility] Respiratory rate 2021-12-04 16:52:00 18 /min [facility] Oxygen saturation in Arterial blood by Pulse oximetry 2021-12-04 16:52:00 96 /min [facility] Body weight 2021-12-02 08:31:00 153.497 kg [facility] BMI 2021-12-02 08:31:00 59.94 kg/m2 [facility] Body height 2021-12-01 19:33:00 160 cm [facility] Systolic blood pressure 2021-07-22 00:15:00 153 mm[Hg] [facility] Diastolic blood pressure 2021-07-22 00:15:00 93 mm[Hg] [facility] Heart rate 2021-07-22 00:15:00 88 /min [facility] Oxygen saturation in Arterial blood by Pulse oximetry 2021-07-22 00:15:00 98 /min [facility] Body temperature 2021-07-21 23:28:15 36.67 Loan [facility] Respiratory rate 2021-07-21 23:28:15 18 /min [facility] Body height 2021-07-21 23:21:00 157.5 cm [facility] Body weight 2021-07-21 23:21:00 172.367 kg [facility] BMI 2021-07-21 23:21:00 69.50 kg/m2 [facility] Systolic blood pressure 2020-08-03 12:00:00 118 mm[Hg] [facility] Diastolic blood pressure 2020-08-03 12:00:00 63 mm[Hg] [facility] Heart rate 2020-08-03 12:00:00 66 /min [facility] Body temperature 2020-08-03 12:00:00 35.89 Loan [facility] Respiratory rate 2020-08-03 12:00:00 15 /min [facility] Oxygen saturation in Arterial blood by Pulse oximetry 2020-08-03 12:00:00 98 /min [facility] Body weight 2020-08-02 08:41:00 157.489 kg [facility] BMI 2020-08-02 08:41:00 63.50 kg/m2 [facility] Body height 2020-07-30 20:25:00 157.5 cm [facility] Systolic blood pressure 2020-07-31 15:48:00 143 mm[Hg] [facility] Diastolic blood pressure 2020-07-31 15:48:00 73 mm[Hg] [facility] Heart rate 2020-07-31 15:48:00 82 /min [facility] Body temperature 2020-07-31 15:48:00 36.89 Loan [facility] Respiratory rate 2020-07-31 15:48:00 16 /min [facility] Oxygen saturation in Arterial blood by Pulse oximetry 2020-07-31 15:48:00 100 /min [facility] Body weight 2020-07-31 09:00:00 155.839 kg [facility] BMI 2020-07-31 09:00:00 26.70 kg/m2 [facility] Body height 2020-07-30 20:25:00 157.5 cm [facility] Systolic blood pressure 2020-07-30 14:54:00 160 mm[Hg] [facility] Diastolic blood pressure 2020-07-30 14:54:00 93 mm[Hg] [facility] Heart rate 2020-07-30 14:51:00 86 /min [facility] Body temperature 2020-07-30 14:51:00 36.89 Loan [facility] Respiratory rate 2020-07-30 14:51:00 18 /min [facility] Body height 2020-07-30 14:51:00 157.5 cm [facility] Body weight 2020-07-30 14:51:00 153.951 kg [facility] BMI 2020-07-30 14:51:00 62.08 kg/m2 [facility] Oxygen saturation in Arterial blood by Pulse oximetry 2020-07-30 14:51:00 99 /min [facility] Procedures Procedure Date / Time Performed Performing Clinician Source POCT GLUCOSE (AUTOMATED) 2022-07-06 06:16:00 Lalito Sales [facility] US OVARY TORSION 2022-07-06 06:05:20 Mariel Sales [facility] POCT GLUCOSE (AUTOMATED) 2022-07-06 03:52:00 Lalito Sales [facility] LIPASE 2022-07-06 02:10:00 Mariel Sales [facility] COMP. METABOLIC PANEL ([id number]) 2022-07-06 02:10:00 Mariel Sales [facility] CBC WITH DIFF 2022-07-06 02:10:00 Mariel Sales [facility] POCT TEST 2022-07-06 01:44:00 Mariel Sales [facility] URINALYSIS 2022-07-06 01:42:00 Mariel Sales [facility] NOTICE OF PRIVACY PRACTICES 2022-07-06 00:15:06 Doctor Unassigned, [place] [facility] CONSENT/REFUSAL FOR DIAGNOSIS AND TREATMENT 2022-07-06 00:14:49 Doctor Unassigned, [place] [facility] REFERRAL- REQUEST/RESPONSE 2021-12-31 05:01:00 Doctor Unassigned, [place] [facility] POCT GLUCOSE (AUTOMATED) 2021-12-04 16:53:00 Cristina Dye [facility] POCT GLUCOSE (AUTOMATED) 2021-12-04 12:47:00 Cristina Dye [facility] BASIC METABOLIC PANEL (NA, K, CL, CO2, GLUCOSE, BUN, CREATININE, CA) 2021-12-04 10:31:00 Noam Slater [facility] CBC WITH DIFF 2021-12-04 10:31:00 Noam Slater [facility] POCT GLUCOSE (AUTOMATED) 2021-12-04 01:23:00 Cristina Dye [facility] POCT GLUCOSE (AUTOMATED) 2021-12-03 22:04:00 Cristina Dye [facility] POCT GLUCOSE (AUTOMATED) 2021-12-03 16:41:00 Cristina Dye [facility] POCT GLUCOSE (AUTOMATED) 2021-12-03 12:38:00 Cristina Dye [facility] BASIC METABOLIC PANEL (NA, K, CL, CO2, GLUCOSE, BUN, CREATININE, CA) 2021-12-03 08:53:00 Noam Slater [facility] CBC WITH DIFF 2021-12-03 08:53:00 Noam Slater [facility] POCT GLUCOSE (AUTOMATED) 2021-12-03 01:29:00 Cristina Dye [facility] POCT GLUCOSE (AUTOMATED) 2021-12-02 21:54:00 Cristina Dye [facility] POCT GLUCOSE (AUTOMATED) 2021-12-02 17:05:00 Cristina Dye [facility] POCT GLUCOSE (AUTOMATED) 2021-12-02 13:28:00 Cristina Dye [facility] BASIC METABOLIC PANEL (NA, K, CL, CO2, GLUCOSE, BUN, CREATININE, CA) 2021-12-02 08:35:00 [facility] LIPID [facility]EL (88851)(TOTAL CHOLESTEROL, TRIGLYCERIDES, HDL) 2021-12-02 08:35:00 Hardik [facility] CBC WITH DIFF 2021-12-02 08:35:00 Jackie Dye [facility] POCT GLUCOSE (AUTOMATED) 2021-12-02 04:28:00 Cristina Dye [facility] POCT GLUCOSE (AUTOMATED) 2021-12-02 01:21:00 Cristina Dye [facility] BLOOD CULTURE SCREEN 2021-12-01 23:26:00 Mariana Dye i [facility] POCT GLUCOSE (AUTOMATED) 2021-12-01 22:38:00 Cristina Dye [facility] POCT GLUCOSE (AUTOMATED) 2021-12-01 18:23:00 Cristina Dye joaquín [facility] GC & CHLAMYDIA AMPLIFIED ASSAY 2021-12-01 16:58:00 Jerica Caro [facility] ADC CLC OR LCC ONLY - WET PREP 2021-12-01 15:27:00 Jerica Caro [facility] HB ABO GROUPING 2021-12-01 14:20:00 Rashi Rogel [facility] US OVARY TORSION 2021-12-01 13:52:24 Rashi Rogel [facility] CT ABDOMEN PELVIS WO CONTRAST 2021-12-01 12:58:38 Singer Rashi [facility] POCT TEST 2021-12-01 12:46:00 Mauricio Rogel [facility] COMP. METABOLIC PANEL (52968) 2021-12-01 12:37:00 Singer [facility] CBC WITH DIFF 2021-12-01 12:37:00 Rashi Rogel [facility] GLYCOSYLATED HEMOGLOBIN (A1C) 2021-12-01 12:37:00 Jerica Caro [facility] URINALYSIS 2021-12-01 12:37:00 Rashi Rogel [facility] URINE CULTURE 2021-12-01 12:37:00 Rashi Rogel [facility] COVID-19 (ID NOW RAPID TESTING) 2021-12-01 12:37:00 Singer Rashi [facility] LAB ONLY COVID INTERPRETATION 2021-12-01 12:37:00 Singer [facility] CONSENT/REFUSAL FOR DIAGNOSIS AND TREATMENT 2021-12-01 11:54:29 Doctor Unassigned, [place] [facility] NOTICE OF PRIVACY PRACTICES 2021-07-21 23:16:24 Doctor Unassigned, [place] [facility] CONSENT/REFUSAL FOR DIAGNOSIS AND TREATMENT 2021-07-21 23:16:09 Doctor Unassigned, [place] [facility] BASIC METABOLIC PANEL (NA, K, CL, CO2, GLUCOSE, BUN, CREATININE, CA) 2020-08-03 09:56:00 Yohannes Denton [facility] CBC WITH DIFF 2020-08-03 09:56:00 Yohannes Denton [facility] POCT GLUCOSE (AUTOMATED) 2020-08-03 01:06:00 [facility] 2020-08-02 20:58:00 [facility] 2020-08-02 16:33:00 Bertram Denton [facility] POCT GLUCOSE (AUTOMATED) 2020-08-02 12:45:00 Bertram Denton [facility] POCT GLUCOSE (AUTOMATED) 2020-08-02 01:15:00 [facility] 2020-08-01 21:19:00 [facility] POCT GLUCOSE (AUTOMATED) 2020-08-01 16:47:00 [facility]) 2020-08-01 16:47:00 Bertram Denton [facility] POCT GLUCOSE (AUTOMATED) 2020-08-01 12:26:00 Bertram Denton [facility] POCT GLUCOSE (AUTOMATED) 2020-08-01 12:26:00 Bertram Denton [facility] CBC WITH DIFF 2020-08-01 08:20:00 Emmanuel Wolfe [facility] CBC WITH DIFF 2020-08-01 08:20:00 Emmanuel Wolfe [facility] POCT GLUCOSE (AUTOMATED) 2020-08-01 02:19:00 [facility]) 2020-08-01 02:19:00 Bertram Denton [facility] POCT GLUCOSE (AUTOMATED) 2020-07-31 21:09:00 Bertram Denton [facility] POCT GLUCOSE (AUTOMATED) 2020-07-31 21:09:00 Bertram Denton [facility] ASPIRATE OR ABSCESS CULTURE(AEROBIC/ANAEROBIC ) 2020-07-31 17:25:19 Verona Taylor [facility] ASPIRATE OR ABSCESS CULTURE(AEROBIC/ANAEROBIC ) 2020-07-31 17:25:19 [facility] ASPIRATE OR ABSCESS CULTURE(AEROBIC/ANAEROBIC ) 2020-07-31 17:24:22 [facility](AEROBIC/ANAEROBIC ) 2020-07-31 17:24:22 [facility] INCISION AND DRAINAGE CHEST 2020-07-31 16:47:00 [facility] DRAIN[facility] CHEST 2020-07-31 16:47:00 [facility] PO[facility] 2020-07-31 16:05:00 Jessica [facility] POCT TEST 2020-07-31 16:05:00 [facility] POCT GLUCOSE (AUTOMATED) 2020-07-31 15:46:00 Bertram Denton [facility] POCT GLUCOSE (AUTOMATED) 2020-07-31 15:46:00 Bertram Denton [facility] POCT GLUCOSE (AUTOMATED) 2020-07-31 13:51:00 Bertram Denton [facility] POCT GLUCOSE (AUTOMATED) 2020-07-31 13:51:00 Bertram Denton [facility] POCT GLUCOSE (AUTOMATED) 2020-07-31 12:31:00 Bertram Denton [facility] POCT GLUCOSE (AUTOMATED) 2020-07-31 12:31:00 Bertram Denton [facility] CBC WITH DIFF 2020-07-31 09:00:00 Bertin, Yohannes [facility] GLYCOSYLATED HEMOGLOBIN (A1C) 2020-07-31 09:00:00 Rosa Boykin [facility] CBC WITH DIFF 2020-07-31 09:00:00 Yohannes Denton [facility] GLYCOSYLATED HEMOGLOBIN (A1C) 2020-07-31 09:00:00 Rosa Boykin [facility] POCT GLUCOSE (AUTOMATED) 2020-07-31 05:06:00 Bertram Denton [facility] POCT GLUCOSE (AUTOMATED) 2020-07-31 05:06:00 [facility] POCT GLUCOSE (AUTOMATED) 2020-07-31 00:50:00 [facility] POCT GLUCOSE (AUTOMATED) 2020-07-31 00:50:00 [facility] URINALYSIS 2020-07-30 19:28:00 April Peralta [facility] WOUND CULTURE 2020-07-30 19:28:00 April Peralta [facility] URINALYSIS 2020-07-30 19:28:00 April Peralta [facility] WOUND/ASPIRATE OR ABSCESS CULTURE 2020-07-30 19:28:00 April Peralta [facility] WOUND CULTURE 2020-07-30 19:28:00 April Peralta [facility] POCT TEST 2020-07-30 18:46:00 April Peralta [facility] POCT TEST 2020-07-30 18:46:00 April Peralta [facility] BLOOD CULTURE SCREEN 2020-07-30 17:44:00 April Peralta [facility] MAGNESIUM 2020-07-30 17:44:00 April Peralta [facility] COMP. METABOLIC PANEL (77606) 2020-07-30 17:44:00 April Peralta [facility] CBC WITH DIFF 2020-07-30 17:44:00 April Peralta [facility] COVID-19 (ID NOW RAPID TESTING) 2020-07-30 17:44:00 April Peralta [facility] BLOOD CULTURE SCREEN 2020-07-30 17:44:00 April Peralta [facility] MAGNESIUM 2020-07-30 17:44:00 April Peralta [facility] COMP. METABOLIC PANEL (26300) 2020-07-30 17:44:00 April Peralta [facility] CBC WITH DIFF 2020-07-30 17:44:00 April Peralta [facility] COVID-19 (ID NOW RAPID TESTING) 2020-07-30 17:44:00 April Peralta [facility] CONSENT/REFUSAL FOR DIAGNOSIS AND TREATMENT 2020-07-30 15:52:48 Doctor Unassigned, [place] [facility] Encounters Start Date/Time End Date/Time Encounter Type Admission Type Attending Clinicians Care Facility Care Department Encounter ID Source 2021-03-01 09:46:38 Emergency [facility] [id number] [facility] 2024-01-19 00:00:00 2024-01-19 17:46:35 Letter (Out) Sharif Kellogg [facility] 1..840.114 350.1.13.10 4.2.7.2.686 [id number] [facility] 2024-01-10 18:20:00 2024-01-10 18:40:00 Urgent Care Sharif Kellogg Unknown, Attending [facility] 1..840.114 350.1.13.10 4.2.7.2.686 [id number] [facility] 2024-01-10 18:20:00 2024-01-10 18:20:00 Outpatient R SHARIF KELLOGG [facility] [id number] [facility] 2023-03-02 00:00:00 2023-03-02 00:00:00 Outpatient GC_GCBZW_Ka diyala_S [facility] [id number] [facility] 2022-07-27 08:00:00 2022-07-27 08:00:00 Outpatient R DARIEL DOWNEY OGECHUKWU [facility] [id number] [facility] 2022-07-05 18:41:00 2022-07-06 01:24:00 Emergency X MARIEL SALES [facility] E[facility] [id number] [facility] 2022-07-05 18:41:00 2022-07-06 01:24:00 Emergency Mariel Sales [facility] 1.2.840.114 350.1.13.10 4.2.7.2.686 [id number] [facility] 2022-01-14 00:00:00 2022-01-14 00:00:00 Patient Secure Msg Doctor Unassigned, [place] [facility] 1.2.840.114 350.1.13.10 4.2.7.2.686 [id number] [facility] 2021-12-31 00:00:00 2021-12-31 00:00:00 Orders Only Doctor Unassigned, [place] [facility] 1.2.840.114 350.1.13.10 4.2.7.2.686 [id number] [facility] 2021-12-01 07:13:00 2021-12-04 15:40:00 [id number] 2021-12-01 07:13:00 2021-12-04 15:40:00 Emergency Rashi Rogel Jelani [facility] 1.2.840.114 350.1.13.10 4.2.7.2.686 [id number] [facility] 2021-07-21 18:36:00 2021-07-21 19:21:00 Emergency X MARIBEL NUÑEZ [facility] ERT [id number] [facility] 2021-07-21 18:36:00 2021-07-21 19:21:00 Emergency Maribel Nuñez S [facility] 1.2840.114 350.1.13.10 4.2.7.2.686 [id number] [facility] 2021-07-21 00:00:00 2021-07-21 00:00:00 Orders Only Doctor Unassigned, [place] [facility] 1.20.114 350.1.13.10 4.2.7.2.686 [id number] [facility] 2020-11-25 00:00:00 2020-11-25 00:00:00 Telephone Roselyn Brooks 1.84.114 350.1.13.10 4.2.7.2.686 [id number] [facility] 2020-09-09 14:00:00 2020-09-09 14:00:00 Outpatient ROBERT PROCTOR [facility] [id number] [facility] 2020-08-26 14:00:00 2020-08-26 14:00:00 Outpatient ROBERT PROCTOR [facility] [id number] [facility] 2020-08-12 13:45:00 2020-08-12 13:45:00 Outpatient ROBERT PROCTOR [facility] [id number] [facility] 2020-07-30 11:39:00 2020-08-03 11:31:00 Emergency April Peralta [facility] 1.84.114 350.1.13.10 4.2.7.2.686 [id number] [facility] 2020-07-31 11:30:00 2020-07-31 12:29:00 Surgery Verona Taylor [facility] [place] 1.840.114 350.1.13.10 4.2.7.2.686 [id number] [facility] 2020-07-30 09:40:02 2020-07-30 11:28:27 Urgent Care Provider, [facility] 1.2840.114 350.1.13.10 4.2.7.2.686 [id number] [facility] 2020-07-30 09:40:00 2020-07-30 09:40:00 Outpatient R MELLY FATIMA [facility] [id number] [facility] 2020-07-30 00:00:00 2020-07-30 00:00:00 Orders Only Doctor Unassigned, [place] [facility] 1.2840.114 350.1.13.10 4.2.7.2.686 [id number] [facility] Results Test Description Test Time Test Comments Results Result Co mments Source [facility] 04:02:10* Test Item Value Reference Range Interpretation Comme [facility] POCT GLU (test code = 8926513272) 328 mg/dL 70-110 H Lab Interpretation (test cod e = 05119-8) [facility]normal [facility] [id number] 03:17:52* Test Item Value Reference Range Interpretation Comme nts WBC (test code = 6690-2) 21.36 See_Comment H [Automated message] The system which generated this result transmitted reference range: 4.30 - 11.10 10*3/?L. The reference range was not used to interpret this result as normal/abnormal. RBC (test code = 789-8) 3.97 See_Comment [Automated message] The system which generated this result transmitted reference range: 3.93 - 5.25 10*6/?L. The reference range was not used to interpret this result as normal/abnormal. HGB (test code = 718-7) 11.1 g/dL 11.6-15.0 L HCT (test code = 4544-3) 33.3 % 35.7-45.2 L MCV (test code = 787-2) 83.9 fL 80.6-95.5 MCH (test code = 785-6) 28.0 pg 25.9-32.8 MCHC (test code = 786-4) 33.3 g/dL 31.6-35.1 RDW-SD (test code = 99393-8) 39.5 fL 39.0-49.9 RDW-CV (test code = 788-0) 12.8 % 12.0-15.5 PLT (test code = 777-3) 307 See_Comment [Automated message] The system which generated this result transmitted reference range: 166 - 358 10*3/?L. The reference range was not used to interpret this result as normal/abnormal. MPV (test code = 36620-0) 10.5 fL 9.5-12.9 NRBC/100 WBC (test code = 2478674508) 0.0 See_Comment [Automated message] The system which generated this result transmitted reference range: 0.0 - 10.0 /100 WBCs. The reference range was not used to interpret this result as normal/abnormal. NRBC x10^3 (test code = 4609154500) See_Comment [Automated message] The system which generated this result transmitted reference range: 10*3/?L. The reference range was not used to interpret this result as normal/abnormal. GRAN MAT (NEUT) % (test code = 770-8) 87.4 % IMM GRAN % (test code = 6639374786) 0.90 % LYMPH % (test code = 736-9) 7.4 % MONO % (test code = 5905-5) 4.0 % EOS % (test code = 713-8) 0.1 % BASO % (test code = 706-2) 0.2 % GRAN MAT x10^3(ANC) (test code = 8532329292) 18.66 10*3/uL 1.88-7.09 H IMM GRAN x10^3 (test code = 1822272723) 0.19 10*3/uL 0.00-0.06 H LYMPH x10^3 (test code = 731-0) 1.58 10*3/uL 1.32-3.29 MONO x10^3 (test code = 742-7) 0.85 10*3/uL 0.33-0.92 EOS x10^3 (test code = 711-2) 0.03 10*3/uL 0.03-0.39 BASO x10^3 (test code = 704-7) 0.05 10*3/uL 0.01-0.07 POLYCHROMASIA (test code = 58058-6) 2+ See_Comment [Automated message] The system which generated this result transmitted reference range: 2+. The reference range was not used to interpret this result as normal/abnormal. Lab Interpretation (test code = 76426-6) Abnormal [facility]. METABOLIC PANEL (30718)2022-07-06 02:50:26* Test Item Value Reference Range Interpretation Comme nts NA (test code = 4150272661) 130 mmol/L 135-145 L K (test code = 6243686320) 3.6 mmol/L 3.5-5.0 CL (test code = 2318122607) 93 mmol/L 98-108 L CO2 TOTAL (test code = 0354929077) 25 mmol/L 23-31 AGAP (test code = 6783937510) 12 2-16 BUN (test code = 4856906194) 7 mg/dL 7-23 GLUCOSE (test code = 1079812125) 314 mg/dL 70-110 H CREATININE (test code = 7644043921) 0.58 mg/dL 0.50-1.04 TOTAL BILI (test code = 1303510295) 0.7 mg/dL 0.1-1.1 CALCIUM (test code = 7982697765) 8.0 mg/dL 8.6-10.6 L T PROTEIN (test code = 8315179129) 8.6 g/dL 6.3-8.2 H ALBUMIN (test code = 7333784287) 4.0 g/dL 3.5-5.0 ALK PHOS (test code = 6326761699) 227 U/L 34-122 H ALTv (test code = 1742-6) 31 U/L 5-35 AST(SGOT) (test code = 1050878034) 32 U/L 13-40 eGFR (test code = 5827129870) 115.1 mL/min/1.73m2 DAVE (test code = DAVE) Association of [...] or abnormalities in imaging tests). Lab Interpretation (test code = 10719-8) [facility]normal [facility] 02:49:50* Test Item Value Reference Range Interpretation Comme [facility] LIPASE (test code = 8136519090) 77 U/L 0-220 Lab Interpretation (test cod e = 29437-3) Normal [facility] [id number] 01:44:00* Test Item Value Reference Range Interpretation Comme nts POCT PREG (test code = 1605) Negative On board controls acceptable with C Line (test code = 3574) Present POCT PREG LOT # (test code = 3575) [id number] POCT PREG TEST DATE ( test code = 3576) 09-30-2023 Lab Interpretation (test cod e = 85478-5) Normal [facility] GLUCOSE (AUTOMATED)2021-12-04 20:21:14* Test Item Value Reference Range Interpretation Comme nts POCT GLU (test code = 5507643101) 157 mg/dL 70-110 H Lab Interpretation (test cod e = 15555-6) Abnormal [facility] GLUCOSE (AUTOMATED)2021-12-04 14:01:32* Test Item Value Reference Range Interpretation Comme nts POCT GLU (test code = 3270165401) 167 mg/dL 70-110 H Lab Interpretation (test cod e = 95216-1) Abnormal [facility] GLUCOSE (AUTOMATED)2021-12-04 12:58:18* Test Item Value Reference Range Interpretation Comme nts POCT GLU (test code = 0750950415) 226 mg/dL 70-110 H Lab Interpretation (test cod e = 36272-4) Abnormal [facility] GLUCOSE (AUTOMATED)2021-12-03 22:06:43* Test Item Value Reference Range Interpretation Comme nts POCT GLU (test code = 1421211546) 210 mg/dL 70-110 H Lab Interpretation (test cod e = 11760-4) Abnormal [facility] GLUCOSE (AUTOMATED)2021-12-03 16:43:47* Test Item Value Reference Range Interpretation Comme nts POCT GLU (test code = 9330014221) 228 mg/dL 70-110 H Lab Interpretation (test cod e = 28135-6) Abnormal [facility] GLUCOSE (AUTOMATED)2021-12-03 12:42:56* Test Item Value Reference Range Interpretation Comme nts POCT GLU (test code = 9135053644) 207 mg/dL 70-110 H Lab Interpretation (test cod e = 42818-6) Abnormal [facility] GLUCOSE (AUTOMATED)2021-12-03 01:48:58* Test Item Value Reference Range Interpretation Comme nts POCT GLU (test code = 6243321774) 265 mg/dL 70-110 H Lab Interpretation (test cod e = 06278-1) Abnormal [facility] GLUCOSE (AUTOMATED)2021-12-02 21:57:50* Test Item Value Reference Range Interpretation Comme nts POCT GLU (test code = 5701829394) 220 mg/dL 70-110 H Lab Interpretation (test cod e = 26171-8) Abnormal [facility] GLUCOSE (AUTOMATED)2021-12-02 17:13:24* Test Item Value Reference Range Interpretation Comme nts POCT GLU (test code = 9102395439) 251 mg/dL 70-110 H Lab Interpretation (test cod e = 95040-7) Abnormal [facility] GLUCOSE (AUTOMATED)2021-12-02 13:31:54* Test Item Value Reference Range Interpretation Comme nts POCT GLU (test code = 2981319436) 266 mg/dL 70-110 H Lab Interpretation (test cod e = 56286-5) Abnormal [facility] GLUCOSE (AUTOMATED)2021-12-02 04:48:00* Test Item Value Reference Range Interpretation Comme nts POCT GLU (test code = 2336608369) 194 mg/dL 70-110 H Lab Interpretation (test cod e = 37376-8) Abnormal [facility] GLUCOSE (AUTOMATED)2021-12-02 01:57:01* Test Item Value Reference Range Interpretation Comme nts POCT GLU (test code = 6279753172) 326 mg/dL 70-110 H Lab Interpretation (test cod e = 14122-4) Abnormal [facility] GLUCOSE (AUTOMATED)2021-12-01 22:44:33* Test Item Value Reference Range Interpretation Comme nts POCT GLU (test code = 0119991633) 375 mg/dL 70-110 H Lab Interpretation (test cod e = 08329-5) Abnormal [facility] GLUCOSE (AUTOMATED)2021-12-01 18:28:02* Test Item Value Reference Range Interpretation Comme nts POCT GLU (test code = 1132645707) 291 mg/dL 70-110 H Lab Interpretation (test cod e = 28722-8) Abnormal [facility] CLC OR LCC ONLY - WET [id number] 16:25:19* Test Item Value Reference Range Interpretation Comme nts CLUE CELLS WET PREP (test co de = 6721422806) Few None Seen HPF A BACTERIA WET PREP (test code = 7298084856) Many None Seen HPF A WBC WET PREP (test code = 2826912059) Few None Seen HPF A RBC WET PREP (test code = 6139762130) Few None Seen HPF A TRICHOMONAS WET PREP (test c ode = 0857973906) None Seen None Seen HPF YEAST WET PREP (test code = 7436993880) None Seen None Seen HPF Lab Interpretation (test cod e = 53311-0) Abnormal [facility] - ONCE [id number] 15:33:30 * Test Item Value Reference Range Interpretation Comme nts ABO & RH (test code = 20) B Positive Performed at [facility] Laboratory [facility] Blood [address] [place], [place] [address]Toll Free: [phone] No. [id number] IAT (test code = 1185) Negative Performed at [facility] Laboratory [facility] Blood [address] [place], [place] [address]Toll Free: [phone] No. [id number] [facility]GLOBIN (A1C)2021-12-01 14:56:28* Test Item Value Reference Range Interpretation Comme nts HGB A1C (test code = 4548-4) 12.1 % 4-5.7 H DAVE (test code = DAVE) Reference RangesNormal: <5.7%Prediabetes: 5.7 - 6.4%Diabetes: > 6.5% Lab Interpretation (test code = 87371-8) Abnormal [facility] METABOLIC PANEL (95397)2021-12-01 13:41:00* Test Item Value Reference Range Interpretation Comme nts NA (test code = 1022294360) 136 mmol/L 135-145 K (test code = 5300069970) 5.0 mmol/L 3.5-5 CL (test code = 0515112939) 99 mmol/L 98-108 CO2 TOTAL (test code = 6122045629) 25 mmol/L 23-31 AGAP (test code = 7834370322) 2-16 BUN (test code = 4269709018) 17 mg/dL 7-23 GLUCOSE (test code = 6768863821) 374 mg/dL 70-110 H CREATININE (test code = 1105736220) 0.52 mg/dL 0.5-1.04 TOTAL BILI (test code = 0262403187) 0.6 mg/dL 0.1-1.1 CALCIUM (test code = 3346057972) 9.1 mg/dL 8.6-10.6 T PROTEIN (test code = 0968321211) 8.7 g/dL 6.3-8.2 H ALBUMIN (test code = 3870288062) 4.2 g/dL 3.5-5 ALK PHOS (test code = 0976637760) 117 U/L 34-122 ALTv (test code = 1742-6) 22 U/L 5-35 AST(SGOT) (test code = 5829813456) 27 U/L 13-40 eGFR (test code = 1708009021) mL/min/1.73m2 DAVE (test code = DAVE) Association of [...] or abnormalities in imaging tests). Lab Interpretation (test code = 46288-4) Abnormal [facility] WITH [id number] 13:24:20* Test Item Value Reference Range Interpretation Comme nts WBC (test code = 6690-2) See_Comment H [Automated message] The system which generated this result transmitted reference range: 4.30 - 11.10 10*3/?L. The reference range was not used to interpret this result as normal/abnormal. RBC (test code = 789-8) See_Comment [Automated message] The system which generated this result transmitted reference range: 3.93 - 5.25 10*6/?L. The reference range was not used to interpret this result as normal/abnormal. HGB (test code = 718-7) 12.0 g/dL 11.6-15 HCT (test code = 4544-3) 36.1 % 35.7-45.2 MCV (test code = 787-2) 84.1 fL 80.6-95.5 MCH (test code = 785-6) 28.0 pg 25.9-32.8 MCHC (test code = 786-4) 33.2 g/dL 31.6-35.1 RDW-SD (test code = 53065-6) 40.6 fL 39-49.9 RDW-CV (test code = 788-0) 13.3 % 12-15.5 PLT (test code = 777-3) See_Comment [Automated message] The system which generated this result transmitted reference range: 166 - 358 10*3/?L. The reference range was not used to interpret this result as normal/abnormal. MPV (test code = 45101-0) 11.0 fL 9.5-12.9 NRBC/100 WBC (test code = 1524353491) See_Comment [Automated message] The system which generated this result transmitted reference range: 0.0 - 10.0 /100 WBCs. The reference range was not used to interpret this result as normal/abnormal. NRBC x10^3 (test code = 1869090093) See_Comment [Automated message] The system which generated this result transmitted reference range: 10*3/?L. The reference range was not used to interpret this result as normal/abnormal. GRAN MAT (NEUT) % (test code = 770-8) 80.0 % IMM GRAN % (test code = 1324046177) 0.40 % LYMPH % (test code = 736-9) 13.8 % MONO % (test code = 5905-5) 4.9 % EOS % (test code = 713-8) 0.7 % BASO % (test code = 706-2) 0.2 % GRAN MAT x10^3(ANC) (test code = 2259559705) 10.19 10*3/uL 1.88-7.09 H IMM GRAN x10^3 (test code = 0857831317) 0.05 10*3/uL 0-0.06 LYMPH x10^3 (test code = 731-0) 1.76 10*3/uL 1.32-3.29 MONO x10^3 (test code = 742-7) 0.63 10*3/uL 0.33-0.92 EOS x10^3 (test code = 711-2) 0.09 10*3/uL 0.03-0.39 BASO x10^3 (test code = 704-7) 0.03 10*3/uL 0.01-0.07 Lab Interpretation (test code = 79451-0) [id number]* Test Item Value Reference Range Interpretation Comme nts POCT PREG (test code = 1605) negative On board controls acceptable with C Line (test code = 3574) present POCT PREG LOT # (test code = 3575) [id number] POCT PREG TEST DATE ( test code = 3576) 03/01/23 Lab Interpretation (test cod e = 24074-1) [facility]NA, K, CL, CO2, GLUCOSE, BUN, CREATININE, CA)2020-08-03 11:00:04* Test Item Value Reference Range Interpretation Comme nts NA (test code = 5065561852) 138 mmol/L 135-145 K (test code = 6733028859) 3.8 mmol/L 3.5-5.0 CL (test code = 4087502212) 105 mmol/L 98-108 CO2 TOTAL (test code = 3032255245) 28 mmol/L 23-31 AGAP (test code = 7872786774) 2-16 BUN (test code = 7018166772) 10 mg/dL 7-23 GLUCOSE (test code = 2015550145) 219 mg/dL 70-110 H CREATININE (test code = 6361848153) 0.62 mg/dL 0.50-1.04 CALCIUM (test code = 9573064812) 8.1 mg/dL 8.6-10.6 L eGFR (test code = 4575588796) mL/min/1.73m2 DAVE (test code = DAVE) Association of [...] or abnormalities in imaging tests). Lab Interpretation (test code = 42835-0) Abnormal [facility] WITH [id number] 10:48:24* Test Item Value Reference Range Interpretation Comme nts WBC (test code = 6690-2) See_Comment [Automated [employer]] The system which generated this result transmitted reference range: 4.30 - 11.10 10*3/?L. The reference range was not used to interpret this result as normal/abnormal. RBC (test code = 789-8) See_Comment L [Automated messa ge] The system which generated this result transmitted reference range: 3.93 - 5.25 10*6/?L. The reference range was not used to interpret this result as normal/abnormal. HGB (test code = 718-7) 9.2 g/dL 11.6-15.0 L HCT (test code = 4544-3) 27.7 % 35.7-45.2 L MCV (test code = 787-2) 83.4 fL 80.6-95.5 MCH (test code = 785-6) 27.7 pg 25.9-32.8 MCHC (test code = 786-4) 33.2 g/dL 31.6-35.1 RDW-SD (test code = 25593-5) 40.7 fL 39.0-49.9 RDW-CV (test code = 788-0) 13.4 % 12.0-15.5 PLT (test code = 777-3) See_Comment [Automated messa ge] The system which generated this result transmitted reference range: 166 - 358 10*3/?L. The reference range was not used to interpret this result as normal/abnormal. MPV (test code = 15698-7) 9.6 fL 9.5-12.9 NRBC/100 WBC (test code = 3283176694) See_Comment [Automated [employer] ssage] The system which generated this result transmitted reference range: 0.0 - 10.0 /100 WBCs. The reference range was not used to interpret this result as normal/abnormal. NRBC x10^3 (test code = 7897183431) <0.01 See_Comment [Automated messa ge] The system which generated this result transmitted reference range: 10*3/?L. The reference range was not used to interpret this result as normal/abnormal. GRAN MAT (NEUT) % (test code = 770-8) 62.0 % IMM GRAN % (test code = 8078044282) 0.20 % LYMPH % (test code = 736-9) 27.3 % MONO % (test code = 5905-5) 8.4 % EOS % (test code = 713-8) 1.7 % BASO % (test code = 706-2) 0.4 % GRAN MAT x10^3(ANC) (test code = 2786424936) 2.88 10*3/uL 1.88-7.09 IMM GRAN x10^3 (test code = 9845092827) <0.03 0.00-0.06 LYMPH x10^3 (test code = 731-0) 1.27 10*3/uL 1.32-3.29 L MONO x10^3 (test code = 742-7) 0.39 10*3/uL 0.33-0.92 EOS x10^3 (test code = 711-2) 0.08 10*3/uL 0.03-0.39 BASO x10^3 (test code = 704-7) <0.03 0.01-0.07 Lab Interpretation (test code = 55913-9) Abnormal [facility] GLUCOSE (AUTOMATED)2020-08-03 01:31:22* Test Item Value Reference Range Interpretation Comme nts POCT GLU (test code = 8578281275) 200 mg/dL 70-110 H Lab Interpretation (test cod e = 43977-5) Abnormal [facility] GLUCOSE (AUTOMATED)2020-08-03 01:31:22* Test Item Value Reference Range Interpretation Comme nts POCT GLU (test code = 0302877859) 277 mg/dL 70-110 H Lab Interpretation (test cod e = 00339-5) Abnormal [facility] GLUCOSE (AUTOMATED)2020-08-03 01:31:22* Test Item Value Reference Range Interpretation Comme nts POCT GLU (test code = 1874162651) 184 mg/dL 70-110 H Lab Interpretation (test cod e = 67319-9) Abnormal [facility] GLUCOSE (AUTOMATED)2020-08-03 01:31:17* Test Item Value Reference Range Interpretation Comme nts POCT GLU (test code = 3897051064) 234 mg/dL 70-110 H Lab Interpretation (test cod e = 04717-0) Abnormal [facility] GLUCOSE (AUTOMATED)2020-08-02 01:53:48* Test Item Value Reference Range Interpretation Comme nts POCT GLU (test code = 1504441539) 281 mg/dL 70-110 H Lab Interpretation (test cod e = 83685-0) Abnormal [facility] GLUCOSE (AUTOMATED)2020-08-01 22:48:21* Test Item Value Reference Range Interpretation Comme nts POCT GLU (test code = 1541362634) 289 mg/dL 70-110 H Lab Interpretation (test cod e = 62650-7) [facility] [id number] 21:51:55* Test Item Value Reference Range Interpretation Comme nts Wound Culture (test code = 6462-6) 1+ Actinomyces species Gram stain (test code = 664-3) Moderate Polymorphonuclear leukocytes Seen on smear/stain, not recovered on culture. [facility] GLUCOSE (AUTOMATED)2020-08-01 16:49:41* Test Item Value Reference Range Interpretation Comme nts POCT GLU (test code = 7250736571) 260 mg/dL 70-110 H Lab Interpretation (test cod e = 06978-2) Abnormal [facility] GLUCOSE (AUTOMATED)2020-08-01 16:49:41* Test Item Value Reference Range Interpretation Comme nts POCT GLU (test code = 3136259768) 260 mg/dL 70-110 H Lab Interpretation (test cod e = 43704-9) Abnormal [facility] GLUCOSE (AUTOMATED)2020-08-01 12:52:27* Test Item Value Reference Range Interpretation Comme nts POCT GLU (test code = 9695004364) 322 mg/dL 70-110 H Lab Interpretation (test cod e = 12783-0) Abnormal [facility] GLUCOSE (AUTOMATED)2020-08-01 12:52:27* Test Item Value Reference Range Interpretation Comme nts POCT GLU (test code = 3048290874) 322 mg/dL 70-110 H Lab Interpretation (test cod e = 00936-9) Abnormal [facility] WITH [id number] 09:22:48* Test Item Value Reference Range Interpretation Comme nts WBC (test code = 6690-2) See_Comment [Automated [employer]] The system which generated this result transmitted reference range: 4.30 - 11.10 10*3/?L. The reference range was not used to interpret this result as normal/abnormal. RBC (test code = 789-8) See_Comment L [Automated messa ge] The system which generated this result transmitted reference range: 3.93 - 5.25 10*6/?L. The reference range was not used to interpret this result as normal/abnormal. HGB (test code = 718-7) 9.6 g/dL 11.6-15.0 L HCT (test code = 4544-3) 29.5 % 35.7-45.2 L MCV (test code = 787-2) 83.8 fL 80.6-95.5 MCH (test code = 785-6) 27.3 pg 25.9-32.8 MCHC (test code = 786-4) 32.5 g/dL 31.6-35.1 RDW-SD (test code = 47053-2) 40.8 fL 39.0-49.9 RDW-CV (test code = 788-0) 13.3 % 12.0-15.5 PLT (test code = 777-3) See_Comment [Automated [employer]] The system which generated this result transmitted reference range: 166 - 358 10*3/?L. The reference range was not used to interpret this result as normal/abnormal. MPV (test code = 93731-2) 10.3 fL 9.5-12.9 NRBC/100 WBC (test code = 8452787168) See_Comment [Automated [employer] ssage] The system which generated this result transmitted reference range: 0.0 - 10.0 /100 WBCs. The reference range was not used to interpret this result as normal/abnormal. NRBC x10^3 (test code = 3264460083) <0.01 See_Comment [Automated messa ge] The system which generated this result transmitted reference range: 10*3/?L. The reference range was not used to interpret this result as normal/abnormal. GRAN MAT (NEUT) % (test code = 770-8) 85.5 % IMM GRAN % (test code = 4449689209) 0.30 % LYMPH % (test code = 736-9) 10.0 % MONO % (test code = 5905-5) 4.0 % EOS % (test code = 713-8) 0.0 % BASO % (test code = 706-2) 0.2 % GRAN MAT x10^3(ANC) (test code = 4458832710) 9.49 10*3/uL 1.88-7.09 H IMM GRAN x10^3 (test code = 2950015115) 0.03 10*3/uL 0.00-0.06 LYMPH x10^3 (test code = 731-0) 1.11 10*3/uL 1.32-3.29 L MONO x10^3 (test code = 742-7) 0.44 10*3/uL 0.33-0.92 EOS x10^3 (test code = 711-2) <0.03 0.03-0.39 L BASO x10^3 (test code = 704-7) <0.03 0.01-0.07 Lab Interpretation (test code = 93339-1) Abnormal [facility] WITH [id number] 09:22:48* Test Item Value Reference Range Interpretation Comme nts WBC (test code = 6690-2) See_Comment [Automated messa ge] The system which generated this result transmitted reference range: 4.30 - 11.10 10*3/?L. The reference range was not used to interpret this result as normal/abnormal. RBC (test code = 789-8) See_Comment L [Automated messa ge] The system which generated this result transmitted reference range: 3.93 - 5.25 10*6/?L. The reference range was not used to interpret this result as normal/abnormal. HGB (test code = 718-7) 9.6 g/dL 11.6-15.0 L HCT (test code = 4544-3) 29.5 % 35.7-45.2 L MCV (test code = 787-2) 83.8 fL 80.6-95.5 MCH (test code = 785-6) 27.3 pg 25.9-32.8 MCHC (test code = 786-4) 32.5 g/dL 31.6-35.1 RDW-SD (test code = 99696-3) 40.8 fL 39.0-49.9 RDW-CV (test code = 788-0) 13.3 % 12.0-15.5 PLT (test code = 777-3) See_Comment [Automated messa ge] The system which generated this result transmitted reference range: 166 - 358 10*3/?L. The reference range was not used to interpret this result as normal/abnormal. MPV (test code = 65823-2) 10.3 fL 9.5-12.9 NRBC/100 WBC (test code = 0601092890) See_Comment [Automated me ssage] The system which generated this result transmitted reference range: 0.0 - 10.0 /100 WBCs. The reference range was not used to interpret this result as normal/abnormal. NRBC x10^3 (test code = 5854682938) <0.01 See_Comment [Automated messa ge] The system which generated this result transmitted reference range: 10*3/?L. The reference range was not used to interpret this result as normal/abnormal. GRAN MAT (NEUT) % (test code = 770-8) 85.5 % IMM GRAN % (test code = 1617226253) 0.30 % LYMPH % (test code = 736-9) 10.0 % MONO % (test code = 5905-5) 4.0 % EOS % (test code = 713-8) 0.0 % BASO % (test code = 706-2) 0.2 % GRAN MAT x10^3(ANC) (test code = 7058701268) 9.49 10*3/uL 1.88-7.09 H IMM GRAN x10^3 (test code = 1268426545) 0.03 10*3/uL 0.00-0.06 LYMPH x10^3 (test code = 731-0) 1.11 10*3/uL 1.32-3.29 L MONO x10^3 (test code = 742-7) 0.44 10*3/uL 0.33-0.92 EOS x10^3 (test code = 711-2) <0.03 0.03-0.39 L BASO x10^3 (test code = 704-7) <0.03 0.01-0.07 Lab Interpretation (test code = 03060-4) Abnormal [facility] GLUCOSE (AUTOMATED)2020-08-01 02:23:22* Test Item Value Reference Range Interpretation Comme nts POCT GLU (test code = 6527035046) 426 mg/dL 70-110 H Lab Interpretation (test cod e = 96452-5) Abnormal [facility] GLUCOSE (AUTOMATED)2020-08-01 02:23:22* Test Item Value Reference Range Interpretation Comme nts POCT GLU (test code = 2226493247) 426 mg/dL 70-110 H Lab Interpretation (test cod e = 24448-2) Abnormal [facility] GLUCOSE (AUTOMATED)2020-07-31 21:27:42* Test Item Value Reference Range Interpretation Comme nts POCT GLU (test code = 9192104612) 286 mg/dL 70-110 H Lab Interpretation (test cod e = 04933-4) Abnormal [facility] GLUCOSE (AUTOMATED)2020-07-31 21:27:42* Test Item Value Reference Range Interpretation Comme nts POCT GLU (test code = 2211112660) 286 mg/dL 70-110 H Lab Interpretation (test cod e = 19482-7) Abnormal [facility] [id number] 16:05:00* Test Item Value Reference Range Interpretation Comme nts POCT PREG (test code = 1605) Negative On board controls acceptable with C Line (test code = 3574) Yes POCT PREG LOT # (test code = 3575) [id number] POCT PREG TEST DATE ( test code = 3576) 2020-09-29 [facility] Apcl9561-82-98 16:05:00* Test Item Value Reference Range Interpretation Comme nts POCT PREG (test code = 1605) Negative On board controls acceptable with C Line (test code = 3574) Yes POCT PREG LOT # (test code = 3575) [id number] POCT PREG TEST DATE ( test code = 3576) 2020-09-29 [facility] GLUCOSE (AUTOMATED)2020-07-31 15:50:31* Test Item Value Reference Range Interpretation Comme nts POCT GLU (test code = 4574495518) 267 mg/dL 70-110 H Lab Interpretation (test cod e = 26852-5) Abnormal [facility] GLUCOSE (AUTOMATED)2020-07-31 15:50:31* Test Item Value Reference Range Interpretation Comme nts POCT GLU (test code = 8889443482) 267 mg/dL 70-110 H Lab Interpretation (test cod e = 14827-7) [facility] 15:47:37* Test Item Value Reference Range Interpretation Comme nts HGB A1C (test code = 4548-4) 10.7 % 4.0-6.0 H DAVE (test code = DAVE) %A1C (NGSP) Interpretation (ADA)4.8-5.6 ? ? Normal or (Non-Diabetic Range)5.7-6.4 ? ? Increased Risk (Pre-Diabetic)>6.5 ?Diabetes Indicated Lab Interpretation (test code = 72277-3) [facility]2020-07-31 15:47:37* Test Item Value Reference Range Interpretation Comme nts HGB A1C (test code = 4548-4) 10.7 % 4.0-6.0 H DAVE (test code = DAVE) %A1C (NGSP) Interpretation (ADA)4.8-5.6 ? ? Normal or (Non-Diabetic Range)5.7-6.4 ? ? Increased Risk (Pre-Diabetic)>6.5 ?Diabetes Indicated Lab Interpretation (test code = 80165-4) Abnormal [facility] Cxocwqs1211-08-64 15:46:00* Test Item Value Reference Range Interpretation Comme nts POCT Glu (age>30days) (test code = 3342) 267 mg/dL 70-110 A Lab Interpretation (test cod e = 55050-7) Abnormal [facility] Lbxpwzz2236-57-38 15:46:00* Test Item Value Reference Range Interpretation Comme nts POCT Glu (age>30days) (test code = 3342) 267 mg/dL 70-110 A Lab Interpretation (test cod e = 47895-5) Abnormal [facility] GLUCOSE (AUTOMATED)2020-07-31 13:59:15* Test Item Value Reference Range Interpretation Comme nts POCT GLU (test code = 4607377570) 318 mg/dL 70-110 H Lab Interpretation (test cod e = 94151-5) Abnormal [facility] GLUCOSE (AUTOMATED)2020-07-31 13:59:15* Test Item Value Reference Range Interpretation Comme nts POCT GLU (test code = 9346316990) 318 mg/dL 70-110 H Lab Interpretation (test cod e = 93552-9) Abnormal [facility] GLUCOSE (AUTOMATED)2020-07-31 13:15:31* Test Item Value Reference Range Interpretation Comme nts POCT GLU (test code = 5404488678) 324 mg/dL 70-110 H Lab Interpretation (test cod e = 76554-5) Abnormal [facility] GLUCOSE (AUTOMATED)2020-07-31 13:15:31* Test Item Value Reference Range Interpretation Comme nts POCT GLU (test code = 9674547817) 324 mg/dL 70-110 H Lab Interpretation (test cod e = 48724-9) Abnormal [facility] with Girjfrxmeyha2634-68-98 09:40:45* Test Item Value Reference Range Interpretation Comme nts WBC (test code = 6690-2) See_Comment H [Automated messa ge] The system which generated this result transmitted reference range: 4.30 - 11.10 10*3/?L. The reference range was not used to interpret this result as normal/abnormal. RBC (test code = 789-8) See_Comment L [Automated messa ge] The system which generated this result transmitted reference range: 3.93 - 5.25 10*6/?L. The reference range was not used to interpret this result as normal/abnormal. HGB (test code = 718-7) 9.6 g/dL 11.6-15.0 L HCT (test code = 4544-3) 29.2 % 35.7-45.2 L MCV (test code = 787-2) 84.4 fL 80.6-95.5 MCH (test code = 785-6) 27.7 pg 25.9-32.8 MCHC (test code = 786-4) 32.9 g/dL 31.6-35.1 RDW-SD (test code = 14127-1) 41.4 fL 39.0-49.9 RDW-CV (test code = 788-0) 13.6 % 12.0-15.5 PLT (test code = 777-3) See_Comment H [Automated messa ge] The system which generated this result transmitted reference range: 166 - 358 10*3/?L. The reference range was not used to interpret this result as normal/abnormal. MPV (test code = 42601-3) 9.9 fL 9.5-12.9 NRBC/100 WBC (test code = 0853985274) See_Comment [Automated me ssage] The system which generated this result transmitted reference range: 0.0 - 10.0 /100 WBCs. The reference range was not used to interpret this result as normal/abnormal. NRBC x10^3 (test code = 2303137008) <0.01 See_Comment [Automated messa ge] The system which generated this result transmitted reference range: 10*3/?L. The reference range was not used to interpret this result as normal/abnormal. GRAN MAT (NEUT) % (test code = 770-8) 68.8 % IMM GRAN % (test code = 7290391873) 0.30 % LYMPH % (test code = 736-9) 23.0 % MONO % (test code = 5905-5) 5.8 % EOS % (test code = 713-8) 1.9 % BASO % (test code = 706-2) 0.2 % GRAN MAT x10^3(ANC) (test code = 3328606728) 7.65 10*3/uL 1.88-7.09 H IMM GRAN x10^3 (test code = 0882036569) 0.03 10*3/uL 0.00-0.06 LYMPH x10^3 (test code = 731-0) 2.56 10*3/uL 1.32-3.29 MONO x10^3 (test code = 742-7) 0.65 10*3/uL 0.33-0.92 EOS x10^3 (test code = 711-2) 0.21 10*3/uL 0.03-0.39 BASO x10^3 (test code = 704-7) <0.03 0.01-0.07 Lab Interpretation (test code = 08468-0) Abnormal [facility] with Icznrbndkkuu2136-44-28 09:40:45* Test Item Value Reference Range Interpretation Comme nts WBC (test code = 6690-2) See_Comment H [Automated messa ge] The system which generated this result transmitted reference range: 4.30 - 11.10 10*3/?L. The reference range was not used to interpret this result as normal/abnormal. RBC (test code = 789-8) See_Comment L [Automated messa ge] The system which generated this result transmitted reference range: 3.93 - 5.25 10*6/?L. The reference range was not used to interpret this result as normal/abnormal. HGB (test code = 718-7) 9.6 g/dL 11.6-15.0 L HCT (test code = 4544-3) 29.2 % 35.7-45.2 L MCV (test code = 787-2) 84.4 fL 80.6-95.5 MCH (test code = 785-6) 27.7 pg 25.9-32.8 MCHC (test code = 786-4) 32.9 g/dL 31.6-35.1 RDW-SD (test code = 10315-4) 41.4 fL 39.0-49.9 RDW-CV (test code = 788-0) 13.6 % 12.0-15.5 PLT (test code = 777-3) See_Comment H [Automated messa ge] The system which generated this result transmitted reference range: 166 - 358 10*3/?L. The reference range was not used to interpret this result as normal/abnormal. MPV (test code = 25632-7) 9.9 fL 9.5-12.9 NRBC/100 WBC (test code = 7748411428) See_Comment [Automated me ssage] The system which generated this result transmitted reference range: 0.0 - 10.0 /100 WBCs. The reference range was not used to interpret this result as normal/abnormal. NRBC x10^3 (test code = 2577911201) <0.01 See_Comment [Automated messa ge] The system which generated this result transmitted reference range: 10*3/?L. The reference range was not used to interpret this result as normal/abnormal. GRAN MAT (NEUT) % (test code = 770-8) 68.8 % IMM GRAN % (test code = 0956674761) 0.30 % LYMPH % (test code = 736-9) 23.0 % MONO % (test code = 5905-5) 5.8 % EOS % (test code = 713-8) 1.9 % BASO % (test code = 706-2) 0.2 % GRAN MAT x10^3(ANC) (test code = 1433298295) 7.65 10*3/uL 1.88-7.09 H IMM GRAN x10^3 (test code = 3664799406) 0.03 10*3/uL 0.00-0.06 LYMPH x10^3 (test code = 731-0) 2.56 10*3/uL 1.32-3.29 MONO x10^3 (test code = 742-7) 0.65 10*3/uL 0.33-0.92 EOS x10^3 (test code = 711-2) 0.21 10*3/uL 0.03-0.39 BASO x10^3 (test code = 704-7) <0.03 0.01-0.07 Lab Interpretation (test code = 14222-7) Abnormal [facility] GLUCOSE (AUTOMATED)2020-07-31 05:16:55* Test Item Value Reference Range Interpretation Comme nts POCT GLU (test code = 0294552824) 258 mg/dL 70-110 H Lab Interpretation (test cod e = 77765-3) Abnormal [facility] GLUCOSE (AUTOMATED)2020-07-31 05:16:55* Test Item Value Reference Range Interpretation Comme nts POCT GLU (test code = 9859026022) 258 mg/dL 70-110 H Lab Interpretation (test cod e = 88161-7) Abnormal [facility] GLUCOSE (AUTOMATED)2020-07-31 01:33:51* Test Item Value Reference Range Interpretation Comme nts POCT GLU (test code = 5584348580) 334 mg/dL 70-110 H Lab Interpretation (test cod e = 35341-0) Abnormal [facility] GLUCOSE (AUTOMATED)2020-07-31 01:33:51* Test Item Value Reference Range Interpretation Comme nts POCT GLU (test code = 3929656716) 334 mg/dL 70-110 H Lab Interpretation (test cod e = 36037-6) [facility]59[facility]42* Test Item Value Reference Range Interpretation Comme nts APPEARANCE (test code = 2243015861) Clear Clear COLOR (test code = 3900183894) Straw Yellow A PH (test code = 5301004661) 4.8-8.0 SP GRAVITY (test code = 6729406451) 1.003-1.030 GLU U QUAL (test code = 2757880620) 150 mg/dL Normal A BLOOD (test code = 7506900824) 3+ Negative A KETONES (test code = 2440236817) Negative Negative PROTEIN (test code = 2887-8) Negative Negative UROBILIN (test code = 1942872782) Normal Normal BILIRUBIN (test code = 4015347507) Negative Negative NITRITE (test code = 7105987054) Negative Negative LEUK KULWINDER (test code = 5399532086) Negative Negative RBC/HPF (test code = 3887038661) See_Comment [Automated [employer]] The system which generated this result transmitted reference range: 0 - 3 HPF. The reference range was not used to interpret this result as normal/abnormal. WBC/HPF (test code = 8933078064) See_Comment [Automated [employer]] The system which generated this result transmitted reference range: 0 - 5 HPF. The reference range was not used to interpret this result as normal/abnormal. BACTERIA (test code = 9536655660) Few Negative A SQ EPITH (test code = 1438253482) HPF Lab Interpretation (test code = 64519-7) [facility]59:42* Test Item Value Reference Range Interpretation Comme nts APPEARANCE (test code = 2064426957) Clear Clear COLOR (test code = 9515291013) Straw Yellow A PH (test code = 7697661410) 4.8-8.0 SP GRAVITY (test code = 5591163774) 1.003-1.030 GLU U QUAL (test code = 3462828147) 150 mg/dL Normal A BLOOD (test code = 3867585978) 3+ Negative A KETONES (test code = 9290679459) Negative Negative PROTEIN (test code = 2887-8) Negative Negative UROBILIN (test code = 6520007987) Normal Normal BILIRUBIN (test code = 7728840538) Negative Negative NITRITE (test code = 7535470164) Negative Negative LEUK KULWINDER (test code = 3996574361) Negative Negative RBC/HPF (test code = 0451155620) See_Comment [Automated messa ge] The system which generated this result transmitted reference range: 0 - 3 HPF. The reference range was not used to interpret this result as normal/abnormal. WBC/HPF (test code = 7740150912) See_Comment [Automated messa ge] The system which generated this result transmitted reference range: 0 - 5 HPF. The reference range was not used to interpret this result as normal/abnormal. BACTERIA (test code = 9377621086) Few Negative A SQ EPITH (test code = 9329372537) HPF Lab Interpretation (test code = 09259-3) Abnormal [facility] BYVK0130-14-41 18:46:00* Test Item Value Reference Range Interpretation Comme nts On board controls acceptable with C Line (test code = 3574) present POCT PREG LOT # (test code = 3575) [id number] POCT PREG TEST DATE ( test code = 357) 2022-03-31 POCT PREG (test code = 1605) negative Lab Interpretation (test cod e = 24353-0) Normal [facility] [id number] 18:46:00* Test Item Value Reference Range Interpretation Comme nts On board controls acceptable with C Line (test code = 3574) present POCT PREG LOT # (test code = 3575) [id number] POCT PREG TEST DATE ( test code = 3576) 2022-03-31 POCT PREG (test code = 1605) negative Lab Interpretation (test cod e = 67602-2) [facility]2020-07-30 18:12:44* Test Item Value Reference Range Interpretation Comme nts SARS-CoV-2 Rapid ID NOW (test code = 97450-9) Not Detected Not Detected DAVE (test code = DAVE) ID NOW COVID-19 As say is an isothermal nucleic acid amplification test intended for the qualitative detection of nucleic acid from SARS-CoV-2 viral RNA in nasopharyngeal (SERVICE WRITER) specimens. It is used under Emergency Use [...] patient testing if clinically indicated. Lab Interpretation (test code = 30905-3) [facility]ID [facility]2020-07-30 18:12:44* Test Item Value Reference Range Interpretation Comme nts SARS-CoV-2 Rapid ID NOW (test code = 77954-1) Not Detected Not Detected DAVE (test code = DAVE) ID NOW COVID-19 As say is an isothermal nucleic acid amplification test intended for the qualitative detection of nucleic acid from SARS-CoV-2 viral RNA in nasopharyngeal (SERVICE WRITER) specimens. It is used under Emergency Use [...] patient testing if clinically indicated. Lab Interpretation (test code = 45331-1) Normal [facility]2021-03-31 18:09:03* Test Item Value Reference Range Interpretation Comme nts MAGNESIUM (test code = 0626940929) 2.0 mg/dL 1.7-2.4 Lab Interpretation (test cod e = 67062-0) Normal [facility]2021-03-31 18:09:03* Test Item Value Reference Range Interpretation Comme nts MAGNESIUM (test code = 7031643291) 2.0 mg/dL 1.7-2.4 Lab Interpretation (test cod e = 64525-4) Normal [facility]. METABOLIC PANEL (52497)2020-07-30 18:08:43* Test Item Value Reference Range Interpretation Comme nts NA (test code = 1423226647) 136 mmol/L 135-145 K (test code = 0699007668) 4.0 mmol/L 3.5-5.0 CL (test code = 0347419291) 101 mmol/L 98-108 CO2 TOTAL (test code = 7801583506) 29 mmol/L 23-31 AGAP (test code = 2219171214) 2-16 BUN (test code = 9233493081) 12 mg/dL 7-23 GLUCOSE (test code = 0660905527) 292 mg/dL 70-110 H CREATININE (test code = 9139415377) 0.54 mg/dL 0.50-1.04 TOTAL BILI (test code = 1755566851) 0.4 mg/dL 0.1-1.1 CALCIUM (test code = 1779730167) 8.8 mg/dL 8.6-10.6 T PROTEIN (test code = 0262143566) 8.7 g/dL 6.3-8.2 H ALBUMIN (test code = 4911439627) 4.2 g/dL 3.5-5.0 ALK PHOS (test code = 2701335653) 120 U/L 34-122 ALTv (test code = 1742-6) 14 U/L 5-35 AST(SGOT) (test code = 4985457831) 19 U/L 13-40 eGFR (test code = 0823558736) mL/min/1.73m2 eGFR Calculation () (test code = 1951834168) mL/min/1.73m2 DAVE (test code = DAVE) Association of [...] or abnormalities in imaging tests). Lab Interpretation (test code = 37095-9) [facility] (44067)2020-07-30 18:08:43* Test Item Value Reference Range Interpretation Comme nts NA (test code = 8416435499) 136 mmol/L 135-145 K (test code = 6402173487) 4.0 mmol/L 3.5-5.0 CL (test code = 6311686504) 101 mmol/L 98-108 CO2 TOTAL (test code = 2112808288) 29 mmol/L 23-31 AGAP (test code = 5203883688) 2-16 BUN (test code = 0183495731) 12 mg/dL 7-23 GLUCOSE (test code = 5537907415) 292 mg/dL 70-110 H CREATININE (test code = 1350144379) 0.54 mg/dL 0.50-1.04 TOTAL BILI (test code = 7485932640) 0.4 mg/dL 0.1-1.1 CALCIUM (test code = 4500267707) 8.8 mg/dL 8.6-10.6 T PROTEIN (test code = 6080331357) 8.7 g/dL 6.3-8.2 H ALBUMIN (test code = 0809251850) 4.2 g/dL 3.5-5.0 ALK PHOS (test code = 2519365978) 120 U/L 34-122 ALTv (test code = 1742-6) 14 U/L 5-35 AST(SGOT) (test code = 6875850483) 19 U/L 13-40 eGFR (test code = 2146483785) mL/min/1.73m2 eGFR Calculation () (test code = 0098754911) mL/min/1.73m2 DAVE (test code = DAVE) Association of [...] or abnormalities in imaging tests). Lab Interpretation (test code = 50240-0) Abnormal [facility] WITH [id number] 17:55:41* Test Item Value Reference Range Interpretation Comme nts WBC (test code = 6690-2) See_Comment [Automated messa ge] The system which generated this result transmitted reference range: 4.30 - 11.10 10*3/?L. The reference range was not used to interpret this result as normal/abnormal. RBC (test code = 789-8) See_Comment L [Automated messa ge] The system which generated this result transmitted reference range: 3.93 - 5.25 10*6/?L. The reference range was not used to interpret this result as normal/abnormal. HGB (test code = 718-7) 10.2 g/dL 11.6-15.0 L HCT (test code = 4544-3) 31.2 % 35.7-45.2 L MCV (test code = 787-2) 83.0 fL 80.6-95.5 MCH (test code = 785-6) 27.1 pg 25.9-32.8 MCHC (test code = 786-4) 32.7 g/dL 31.6-35.1 RDW-SD (test code = 89072-8) 40.4 fL 39.0-49.9 RDW-CV (test code = 788-0) 13.3 % 12.0-15.5 PLT (test code = 777-3) See_Comment H [Automated messa ge] The system which generated this result transmitted reference range: 166 - 358 10*3/?L. The reference range was not used to interpret this result as normal/abnormal. MPV (test code = 18265-6) 9.7 fL 9.5-12.9 NRBC/100 WBC (test code = 9018802141) See_Comment [Automated [employer] ssage] The system which generated this result transmitted reference range: 0.0 - 10.0 /100 WBCs. The reference range was not used to interpret this result as normal/abnormal. NRBC x10^3 (test code = 1213129012) <0.01 See_Comment [Automated messa ge] The system which generated this result transmitted reference range: 10*3/?L. The reference range was not used to interpret this result as normal/abnormal. GRAN MAT (NEUT) % (test code = 770-8) 73.4 % IMM GRAN % (test code = 2636226996) 0.50 % LYMPH % (test code = 736-9) 18.8 % MONO % (test code = 5905-5) 5.1 % EOS % (test code = 713-8) 1.8 % BASO % (test code = 706-2) 0.4 % GRAN MAT x10^3(ANC) (test code = 7708506607) 7.94 10*3/uL 1.88-7.09 H IMM GRAN x10^3 (test code = 9111210398) 0.05 10*3/uL 0.00-0.06 LYMPH x10^3 (test code = 731-0) 2.03 10*3/uL 1.32-3.29 MONO x10^3 (test code = 742-7) 0.55 10*3/uL 0.33-0.92 EOS x10^3 (test code = 711-2) 0.19 10*3/uL 0.03-0.39 BASO x10^3 (test code = 704-7) 0.04 10*3/uL 0.01-0.07 Lab Interpretation (test code = 86487-1) Abnormal [facility] WITH [id number] 17:55:41* Test Item Value Reference Range Interpretation Comme nts WBC (test code = 6690-2) See_Comment [Automated [employer]] The system which generated this result transmitted reference range: 4.30 - 11.10 10*3/?L. The reference range was not used to interpret this result as normal/abnormal. RBC (test code = 789-8) See_Comment L [Automated [employer]] The system which generated this result transmitted reference range: 3.93 - 5.25 10*6/?L. The reference range was not used to interpret this result as normal/abnormal. HGB (test code = 718-7) 10.2 g/dL 11.6-15.0 L HCT (test code = 4544-3) 31.2 % 35.7-45.2 L MCV (test code = 787-2) 83.0 fL 80.6-95.5 MCH (test code = 785-6) 27.1 pg 25.9-32.8 MCHC (test code = 786-4) 32.7 g/dL 31.6-35.1 RDW-SD (test code = 08407-2) 40.4 fL 39.0-49.9 RDW-CV (test code = 788-0) 13.3 % 12.0-15.5 PLT (test code = 777-3) See_Comment H [Automated messa ge] The system which generated this result transmitted reference range: 166 - 358 10*3/?L. The reference range was not used to interpret this result as normal/abnormal. MPV (test code = 50323-9) 9.7 fL 9.5-12.9 NRBC/100 WBC (test code = 6279174178) See_Comment [Automated me ssage] The system which generated this result transmitted reference range: 0.0 - 10.0 /100 WBCs. The reference range was not used to interpret this result as normal/abnormal. NRBC x10^3 (test code = 7689802267) <0.01 See_Comment [Automated messa ge] The system which generated this result transmitted reference range: 10*3/?L. The reference range was not used to interpret this result as normal/abnormal. GRAN MAT (NEUT) % (test code = 770-8) 73.4 % IMM GRAN % (test code = 2093577010) 0.50 % LYMPH % (test code = 736-9) 18.8 % MONO % (test code = 5905-5) 5.1 % EOS % (test code = 713-8) 1.8 % BASO % (test code = 706-2) 0.4 % GRAN MAT x10^3(ANC) (test code = 4330007467) 7.94 10*3/uL 1.88-7.09 H IMM GRAN x10^3 (test code = 7873715676) 0.05 10*3/uL 0.00-0.06 LYMPH x10^3 (test code = 731-0) 2.03 10*3/uL 1.32-3.29 MONO x10^3 (test code = 742-7) 0.55 10*3/uL 0.33-0.92 EOS x10^3 (test code = 711-2) 0.19 10*3/uL 0.03-0.39 BASO x10^3 (test code = 704-7) 0.04 10*3/uL 0.01-0.07 Lab Interpretation (test code = 27432-7) Abnormal [facility]"
[2024-02-13] MEDS ORDERED: KETOROLAC 30 MG/ML INJ ONE (10:27)
[2024-02-13] MEDS ORDERED: NA CHLORIDE 0.9% 1,000 ML ONE (10:28)
[2024-02-13] MEDS ORDERED: ONDANSETRON 4 MG/2 ML VIAL ONE (10:29)
[2024-02-13 10:37] LABS: Absolute Lymphocytes (CBC) 1.6 K/uL (0.7-4.9); Absolute Monocytes 1.5 K/uL (0.1-1.3); Absolute Neutrophil 22.9 K/uL (1.8-8.0); Basophils % 0.1 % (0-1.3); Eosinophils % 0.1 % (0-4.4); Hematocrit 19.5 % (36.0-45.0); Hemoglobin 6.4 g/dL (12.0-15.0); Lymphocytes % 6.3 % (15.3-44.8); MCH 26.8 pg (27.0-35.0); MCHC 32.8 g/dL (32.0-36.0); MCV 81.6 fL (80-100); MPV 7.1 fL (7.6-11.3); Monocytes % 5.7 % (3.3-12.3); Neutrophils % 87.8 % (41.7-73.7); Platelets 480 thou/uL (152-406); RBC Red Blood Cell Count 2.39 M/uL (3.86-4.86)
[2024-02-13 11:00] LABS: Albumin 1.8 g/dL (3.4-5.0); Albumin/Globulin Ratio 0.3 (1.1-1.8); Bilirubin Total 0.3 mg/dL (0.2-1.0); Globulin 6.8 g/dL (2.3-3.5); Protein, Total 8.6 g/dL (6.4-8.2)
[2024-02-13 11:31] LABS: Urine Bacteria <20 /HPF (<20); Urine Bilirubin NEGATIVE (Negative); Urine Blood 1+ (Negative); Urine Clarity Extremely Turbid (Clear); Urine Color Yellow (Yellow); Urine Culture Reflex Order REFLEXED; Urine Glucose 2+ (Negative); Urine Ketones NEGATIVE (Negative); Urine Microscopic Reflex YN ORDER UMIC; Urine Nitrite NEGATIVE (Negative); Urine Protein 2+ (Negative); Urine Urobilinogen Normal (Normal); Urine WBC >50 /HPF (<5); Urine pH 5.5 (5.0-7.0)
[2024-02-13 11:37] LABS: Blood Morphology Comment NOTED (NOT SEEN); Hypochromasia 1+; Microcytosis 1+; Platelet Estimate INCR; White Blood Cell Scan OK (OK)
[2024-02-13 11:45] LABS: PT Prothrombin Time 18.4 SECONDS (9.4-12.5); PTT, Activated Partial Thromb 27.7 SECONDS (24.3-36.9); Protime INR 1.67
--- NOTE | 2024-02-13 11:48 | RAD REPORT ---
EXAMINATION: CT ABDOMEN AND PELVIS WITHOUT CONTRAST CLINICAL INDICATION: ABD PAIN TECHNIQUE: CT abdomen and pelvis was performed, without IV contrast, as per department protocol. Axia l, sagittal and coronal reconstructions were obtained. One or more of the following dose reduction techniques were used: Automated exposure control, adjustment of the mA and kV according to the patien t size, and iterative reconstruction. Unless otherwise specified, incidental findings do not require dedicated imaging follow-up. COMPARISON: 07/28/2022 FINDINGS: The lack of intravenous contrast limits the sensitivity of this exam for evaluation of solid visceral organs, vascular structures, and retroperitoneum. LOWER CHEST: The visualized lung bases are clear. LIVER:Hepatic size is prominent. No gross mass or biliary dilatation. Gallstone is seen in the gallbl adder. SPLEEN: Normal size. No focal lesion. PANCREAS: No mass, ductal dilation, or donna-pancreatic fluid. ADRENALS: Normal; no mass. KIDNEYS AND URETERS: Normal size and contour. No hydronephrosis. URINARY BLADDER: Normal contour. GASTROINTESTINAL TRACT: No evidence of bowel obstruction, significant free fluid, free air or abscess . APPENDIX: Normal appendix. LYMPH NODES: No lymphadenopathy. MUSCULOSKELETAL: No acute or suspicious osseous abnormality. ADDITIONAL FINDINGS: Inflamed appearing irregular soft tissue density lesion in the pelvis is again s een. Similar grossly to 07/28/2022 study and of unclear etiology. In totality this roughly measures 19 x 17 centimeters. This may be related to a chronic pelvic infection or malignancy. IMPRESSION: Large irregular inflamed appearing soft tissue lesion in the pelvis grossly similar to 07/28/2022 stud y. This is of indeterminate etiology but is quite large measuring up to 19 cm in maximum dimension. Cholelithiasis.
--- NOTE | 2024-02-13 12:28 | EDPHYS ---
Physician Documentation [facility] Name: Sharlene Buchanan Age: 43 yrs Sex: Female : 1980 Arrival Date: 02/13/2024 Time: 09:56 Bed 3 Private MD: ED Physician Jaspreet Hernandez HPI: 02/12 14:54 This 43 yrs old Female presents to ER via Wheelchair with complaints of Low kb Back Pain, Urinary Problem, Dizziness. 14:54 Pt is a 43 year old female who presents for lower back pain, constipation and kb intermittent fever that started9 days ago. States she was diagnosed with a UTI on 01/31/24 and given antibiotics for that, pain started a few days later. States she went to a dr in [place] and was given meloxicam, then started on medication for hypertension and diabetes. . EDGE BONDER: 10:14 LMP 02/06/2024, unknown tm6 Historical: - Allergies: 10:15 No Known Allergies; aa5 - PMHx: 10:13 diabetes mellitus; Hypertensive disorder; tm6 - PSHx: 10:13 right breast abscess; tm6 - Immunization history:: Client reports having NOT received the Covid vaccine. - Infectious Disease History:: Denies. - Social history:: Smoking status: Patient denies any tobacco usage or history of. Patient/guardian denies using alcohol. ROS: 12:16 Constitutional: As per HPI kb Exam: 11:33 Constitutional: This is a well developed, well nourished patient who is awake, alert, kb and in no acute distress. Head/Face: Normocephalic, atraumatic. ENT: Moist Mucous membranes Cardiovascular: Regular rate Respiratory: Respirations even and unlabored. No increased work of breathing. Talking in full sentences Abdomen/GI: Soft, non-tender. No distention Skin: Warm, dry with normal turgor. Normal color. MS/ Extremity: Pulses equal, no cyanosis. Neurovascular intact. Full, normal range of motion. Neuro: Awake and alert, GCS 15, oriented to person, place, time, and situation. Moves all extremities. Normal gait. 11:33 ECG was reviewed by the Attending Physician. Vital Signs: 10:14 Weight 163.75 kg; Height 5 ft. 2 in. ; Pain 6/10; tm6 10:15 Pulse 99; Resp 17; Temp 99.3; Pulse Ox 98% on R/A; tm6 13:00 BP 145 / 68; Pulse 91; Resp 16; Pulse Ox 97% ; bp 14:38 BP 130 / 66; Pulse 87; Resp 16; Pulse Ox 98% ; bp 15:21 BP 135 / 68; Pulse 88; Resp 16; Pulse Ox 100% ; bp 10:14 Body Mass Index 66.03 (163.75 kg, 157.48 cm) tm6 10:14 Pain Scale: Adult tm6 MDM: 10:15 Patient medically screened. kb 12:25 Data reviewed: vital signs, nurses notes. kb 14:35 ED course: Dr Valdes discussed case with Dr Mcfarland who recommends transfer for possible kb malignancy. . 14:52 Differential diagnosis: uti, pelvic mass, low back pain, pyelonephritis. Consideration kb of Admission/Observation Patient was admitted/placed on observation. Escalation of care including admission/observation considered. Management of patient was discussed with the following: Hospitalist: Hospitalist team. Pt initially accepted for admission, but spoke with Bruna about pelvic mass who recommended transfer for [facility]. Counseling: I had a detailed discussion with the patient and/or guardian regarding the historical points, exam findings, and any diagnostic results supporting the discharge/admit diagnosis, lab results, radiology results, the need to transfer to another facility, [facility] does not immediately have the required specialist. 14:54 Management of patient was discussed with the following: [facility] accepts pt for kb consult at [facility], wants pt admitted to hospitalist. 15:55 Management of patient was discussed with the following: Dr Sherwood, hospitalist at [facility] kb accepts pt for admission. 02/12 10:16 Order name: CBC with Diff; Complete Time: 11:39 kb 02/12 10:16 Order name: CMP; Complete Time: 11:05 kb 02/12 10:16 Order name: Lipase; Complete Time: 11:05 kb 02/12 10:16 Order name: Test, Urine; Complete Time: 11:29 kb 02/12 10:16 Order name: Urinalysis w/ reflexes; Complete Time: 11:39 kb 02/12 10:45 Order name: Blood Culture Adult (2) kb 02/12 10:45 Order name: Lactate w/ 2H reflex if indic.; Complete Time: 12:12 kb 02/12 10:45 Order name: Protime (+inr); Complete Time: 11:46 kb 02/12 10:45 Order name: Ptt, Activated; Complete Time: 11:46 kb 02/12 10:45 Order name: Type And Screen kb 02/12 11:38 Order name: CBC Smear Scan; Complete Time: 11:39 EDMS 02/12 11:41 Order name: Urine Culture EDMS 02/12 12:25 Order name: Bb Add On bd 02/12 11:08 Order name: Abdomen ; Complete Time: 12:12 EDMS 02/12 10:32 Order name: EKG; Complete Time: 10:32 kb 02/12 10:16 Order name: IV Saline Lock; Complete Time: 10:33 kb 02/12 10:16 Order name: Labs collected and sent; Complete Time: 10:33 kb 02/12 10:32 Order name: EKG - Nurse/Tech; Complete Time: 10:33 kb 02/12 10:45 Order name: Cardiac monitoring; Complete Time: 11:00 kb 02/12 10:45 Order name: IV Saline Lock - Large Bore; Complete Time: 11:00 kb 02/12 10:45 Order name: O2 Per Protocol; Complete Time: 11:01 kb 02/12 10:45 Order name: O2 Sat Monitoring; Complete Time: 11:01 kb 02/12 10:45 Order name: Vital Signs; Complete Time: 11:01 kb 02/12 15:00 Order name: Blood Glucose Level kb EC:33 Rate is 98 beats/min. Rhythm is regular. QRS [place] is Normal. [place] interval is normal at kb 134 msec. QRS interval is normal at 90 msec. QT interval is normal at 449 msec. Administered Medications: 10:33 Drug: TORadol - Ketorolac IVP 15 mg IVP once Route: IVP; Site: left antecubital; bp 14:40 Follow up: Response: No adverse reaction bp 10:33 Drug: Ondansetron IVP 4 mg IVP once; over 2 minutes Route: IVP; Site: left antecubital; bp 14:40 Follow up: Response: No adverse reaction bp 10:33 Drug: NS 0.9% IV 1000 ml IV at 1 bolus Per protocol; to be given as a bolus over 60 bp minutes Route: IV; Rate: 1 bolus; Site: left antecubital; 14:40 Follow up: IV Status: Completed infusion; IV Intake: 1000ml bp 12:40 Drug: Rocephin IV 1 grams IV at calculated rate once; Given slow IV push per pharmacy bp instructions Route: IV; Rate: calculated rate; Site: left antecubital; 14:40 Follow up: IV Status: Completed infusion; IV Intake: 100ml bp Disposition Summary: 02/13/24 14:39 Transfer Ordered Notes: Transfer Location: [facility] kb Reason: Higher level of care kb Condition: Stable(02/13/24 14:39) kb Problem: new(02/13/24 14:39) kb Symptoms: are unchanged(02/13/24 14:39) kb Accepting Physician: Dr Sherwood(02/13/24 17:03) bp Diagnosis - Acute kidney failure, unspecified(02/13/24 14:39) kb - Anemia, unspecified(02/13/24 14:39) kb - Elevated white blood cell count(02/13/24 14:39) kb - 19cm mass in pelvis kb - UTI/ Urinary tract infection, site not specified(02/13/24 14:39) kb Forms: - Medication Reconciliation Form kb - SBAR form kb Addendum: 02/14/2024 18:03 I was immediately available for consultation during this patient's visit. I did not e c2 personally see the patient or discuss the patient with the JAIRO. . Signatures: Dispatcher [employer] EDKimberly José, MAINTENANCE PAINTER APPRENTICE-C MAINTENANCE PAINTER APPRENTICE-Ckb Sivan Pabon, RN RN aa5 Salbador Campbell, RN RN bp Jaspreet Hernandez MD MD ec2 Tosha Morgan, RN RN tm6 Corrections: (The following items were deleted from the chart) 02/12 10:16 10:16 Abdomen Pelvis W Con+CT.RAD.BRZ ordered. [facility] EDMS 14:36 12:26 Observation kb kb 14:36 12:26 Yumiko Valdes kb kb 14:36 12:26 Telemetry/MedSurg (observation) kb kb 14:36 12:26 Stable kb kb 14:36 12:26 new kb kb 14:36 12:26 are unchanged kb kb 14:36 12:26 Standard kb kb 14:36 12:26 kb kb 14:36 12:26 Anemia, unspecified kb kb 14:36 12:26 Acute kidney failure, unspecified kb kb 14:36 12:26 UTI/ Urinary tract infection, site not specified kb kb 14:36 12:26 Elevated white blood cell count kb kb 14:39 14:39 Dr kb kb 15:05 14:54 Pt is a 43 year old female who presents for lower back pain, constipation and kb intermittent fever that started9 days ago. States she was diagnosed with a UTI on 01/31/24. kb 15:55 14:39 kb kb 17:03 15:55 Dr Sherwood kb bp
--- NOTE | 2024-02-13 12:28 | ER ---
Nurse's Notes [facility] Name: Sharlene Buchanan Age: 43 yrs Sex: Female : 1980 Arrival Date: 02/13/2024 Time: 09:56 Bed 3 Private MD: Diagnosis: Acute kidney failure, unspecified;Anemia, unspecified;Elevated white blood cell count;19cm mass in pelvis;UTI/ Urinary tract infection, site not specified Presentation: 02/12 10:13 Ebola Screen: Patient negative for fever greater than or equal to 101.5 degrees tm6 Fahrenheit, and additional compatible Ebola Virus Disease symptoms Patient denies exposure to infectious person. Patient denies travel to an Ebola-affected area in the 21 days before illness onset. No symptoms or risks identified at this time. Risk Assessment: Do you want to hurt yourself or someone else? Patient reports no desire to harm self or others. 10:13 Method Of Arrival: Wheelchair tm6 10:14 Chief complaint: Patient states: 9 days low back pain and constipation. Intermittent tm6 fever, no urinary s/s. 10:15 Coronavirus screen: Vaccine status: Patient reports being unvaccinated. Onset of tm6 symptoms was February 04, 2024. 10:15 Acuity: BRITTNEY 3 tm6 Triage Assessment: 10:15 General: Appears in no apparent distress. Behavior is calm, cooperative. Pain: tm6 Complains of pain in lumbar area, left low back and right low back Pain currently is 6 out of 10 on a pain scale. Pain began nine days ago. EENT: No signs and/or symptoms were reported regarding the EENT system. Neuro: Level of Consciousness is awake, alert, obeys commands, Oriented to person, place, time, situation. Cardiovascular: Patient's skin is warm and dry. Respiratory: Airway is patent Respiratory effort is even, unlabored, Respiratory pattern is regular, symmetrical. GI: Abdomen is round Reports constipation, flatulence, since last Tuesday. : No signs and/or symptoms were reported regarding the genitourinary system. Derm: No signs and/or symptoms reported regarding the dermatologic system. Musculoskeletal: Reports pain in lumbar area, left low back and right low back Pain is 6 out of 10 on a pain scale. ACUTE CARE REGISTERED NURSE: 10:14 LMP 02/06/2024, unknown tm6 Historical: - Allergies: 10:15 No Known Allergies; aa5 - PMHx: 10:13 diabetes mellitus; Hypertensive disorder; tm6 - PSHx: 10:13 right breast abscess; tm6 - Immunization history:: Client reports having NOT received the Covid vaccine. - Infectious Disease History:: Denies. - Social history:: Smoking status: Patient denies any tobacco usage or history of. Patient/guardian denies using alcohol. Screenin:21 [facility] ED Fall Risk Assessment (Adult) History of falling in the last 3 months, bp including since admission No falls in past 3 months (0 pts) Confusion or Disorientation No (0 pts) Intoxicated or Sedated No (0 pts) Impaired Gait No (0 pts) Mobility Assist Device Used No (0 pt) Altered Elimination No (0 pt) Score/Fall Risk Level 0 - 2 = Low Risk. Abuse screen: Denies threats or abuse. Denies injuries from another. Nutritional screening: No deficits noted. Tuberculosis screening: No symptoms or risk factors identified. Assessment: 11:55 Reassessment: Pt assisted to restroom via wheelchair. . aa5 13:00 Reassessment: No changes from previously documented assessment. Patient is alert, bp oriented x 3, equal unlabored respirations, skin warm/dry/pink. 15:22 Reassessment: TRANSFER CALLED FOR [facility] 1651. bp Vital Signs: 10:14 Weight 163.75 kg; Height 5 ft. 2 in. ; Pain 6/10; tm6 10:15 Pulse 99; Resp 17; Temp 99.3; Pulse Ox 98% on R/A; tm6 13:00 BP 145 / 68; Pulse 91; Resp 16; Pulse Ox 97% ; bp 14:38 BP 130 / 66; Pulse 87; Resp 16; Pulse Ox 98% ; bp 15:21 BP 135 / 68; Pulse 88; Resp 16; Pulse Ox 100% ; bp 10:14 Body Mass Index 66.03 (163.75 kg, 157.48 cm) tm6 10:14 Pain Scale: Adult tm6 ED Course: 10:00 Patient arrived in ED. im 10:01 Kimberly Stephens F[facility]-C [facility] kb 10:01 Jaspreet Hernandez MD is Attending Physician. kb 10:13 Arm band placed on left wrist. tm6 10:17 Triage completed. tm6 10:20 Salbador Campbell, RN is Primary Nurse. bp 10:27 Initial lab(s) drawn, by me, sent to lab. Inserted saline lock: 20 gauge in left aa5 antecubital area, using aseptic technique. Blood collected. Flushed with 10 mL NS. 11:39 Abdomen In Process Unspecified. EDMS 12:26 Yumiko Valdes MD is Hospitalizing Provider. kb 15:21 Patient has correct armband on for positive identification. bp 15:21 No provider procedures requiring assistance completed. Patient transferred, IV remains bp in place. Administered Medications: 10:33 Drug: TORadol - Ketorolac IVP 15 mg IVP once Route: IVP; Site: left antecubital; bp 14:40 Follow up: Response: No adverse reaction bp 10:33 Drug: Ondansetron IVP 4 mg IVP once; over 2 minutes Route: IVP; Site: left antecubital; bp 14:40 Follow up: Response: No adverse reaction bp 10:33 Drug: NS 0.9% IV 1000 ml IV at 1 bolus Per protocol; to be given as a bolus over 60 bp minutes Route: IV; Rate: 1 bolus; Site: left antecubital; 14:40 Follow up: IV Status: Completed infusion; IV Intake: 1000ml bp 12:40 Drug: Rocephin IV 1 grams IV at calculated rate once; Given slow IV push per pharmacy bp instructions Route: IV; Rate: calculated rate; Site: left antecubital; 14:40 Follow up: IV Status: Completed infusion; IV Intake: 100ml bp Intake: 14:40 IV: 100ml; Total: 100ml. bp 14:40 IV: 1000ml; Total: 1100ml. bp Outcome: 12:26 Decision to Hospitalize by Provider. kb 14:39 ER care complete, transfer ordered by MD. kb 17:03 Patient left the ED. bp Signatures: Dispatcher [employer] EDMS Kimberly Stephens, Sivan Cary, RN RN aa5 Salbador Campbell, RN RN bp Mary Cruz Tawney RN RN tm6
[2024-02-13] MEDS ORDERED: NA CHLORIDE 0.9% 100 ML ONE (12:36)
[2024-02-13] MEDS ORDERED: CEFTRIAXONE 1000 MG/VIAL ONE (12:36)
[2024-02-13 19:08] VITALS: TEMP 99.3
[2024-02-13 19:13] VITALS: BP 135/68; O2SAT 100
--- NOTE | 2024-02-16 12:04 | EKG ---
Test Date: 2024-02-13 Test Time: 10:31:04 Senior Accounting Associate: JOYA MEASUREMENT RESULTS: Intervals: Rate: 98 UT: 134 QRSD: 90 QT: 352 QTc: 449 [place]: P: 73 UT: 134 QRS: 58 T: 62 INTERPRETIVE STATEMENTS: Normal sinus rhythm Normal ECG Compared to ECG 07/22/2018 22:44:37 No significant changes Electronically Signed On 02-16-24 11:56:11 CDT by Franklin Cook
== END 2024-02-13 17:03 | disposition short-term general hospital (02) ==
LOC: ER 09:56
DX: N17.9 Acute kidney failure, unspecified (principal); N39.0 Urinary tract infection, site not specified; D64.9 Anemia, unspecified; D72.829 Elevated white blood cell count, unspecified; R19.00 Intra-abdominal and pelvic swelling, mass and lump, unspecified site; E11.9 Type 2 diabetes mellitus without complications; I10 Essential (primary) hypertension
CPT/HCPCS: 93005; 87040 ×2; 87088; 85025; 81001; 87086; 36415; 86900; 86850; 81025; 85610; 86901; 83605; 85730; 86920 ×2; 83690; 80053; 74176; J2405; J7030; J0696; 96361; 96365; 96366; 96375; 99284